=== PATIENT | male | born 1940 | race Caucasian/White ===

== ENCOUNTER → 2017-10-05 15:34 | Outpatient (CLI) | payer OTHER, SELFPAY ==
--- NOTE | 2017-10-05 | DI.US.S_ITS ---
PROCEDURE: US RENAL COMPLETE INDICATIONS: CHRONIC KIDNEY DISEASE TECHNIQUE: Real-time scanning was performed of the kidneys and bladder, with image documentation. COMPARISON: None. FINDINGS: Kidneys: Kidneys are normal in size. Right kidney measures 9.8 cm long; left kidney measures 10.2 cm long. Right renal cortical thickness is 1.9 cm; left renal cortical thickness is 1 point cm. Renal cortical echotexture is normal. No hydronephrosis or nephrolithiasis. No suspicious solid mass lesions. Bladder: Pre-void bladder volume is 443 mL. Post-void residual is 2 mL. Pre-void images demonstrate no intraluminal masses or stones. On pre-void images, bilateral ureteral jets are noted with color Doppler interrogation. (Of note, ureteral jets may not be detectable in up to 25% of cases due to insufficient differences in specific gravity between ureteral and bladder urine). Miscellaneous: No free pelvic fluid. IMPRESSION: Sonographically normal appearance of the kidneys. Dictated by: Christian LEVIN Interpreted: Rishi Singletary MD on 10/05/2017 at 16:43 Approved by: Rishi Singletary M.D. on 10/05/2017 at 16:48
== END ==
PROVIDERS: Family Provider Student in an Organized Health Care Education/Training Program; Visit Provider Student in an Organized Health Care Education/Training Program
DX: N18.9 Chronic kidney disease, unspecified (principal)
CPT/HCPCS: 76770

== ENCOUNTER → 2018-11-18 13:41 | Outpatient (CLI) | payer OTHER, SELFPAY ==
--- NOTE | 2018-11-18 | DI.US.S_ITS ---
PROCEDURE: US RENAL COMPLETE INDICATIONS: [id number] RENAL FAILURE TECHNIQUE: Real-time scanning was performed of the kidneys and bladder, with image documentation. COMPARISON: [facility], , US RENAL COMPLETE, 10/05/2017, 16:05. FINDINGS: Kidneys: Kidneys are normal in size. Right kidney measures 9.5 cm long; left kidney measures 10.7 cm long. Right renal cortical thickness is 1.2 cm; left renal cortical thickness is 1.5 cm. Renal cortical echotexture is normal. No hydronephrosis or nephrolithiasis. No suspicious solid mass lesions. Bladder: Pre-void bladder volume is 437 mL. Post-void residual is 23 mL. Pre-void images demonstrate no intraluminal masses or stones. On pre-void images, both ureteral jets are noted with color Doppler interrogation. (Of note, ureteral jets may not be detectable in up to 25% of cases due to insufficient differences in specific gravity between ureteral and bladder urine). Miscellaneous: No free pelvic fluid. IMPRESSION: No ultrasound findings to explain renal failure. Dictated by: Chuck Mancilla M.D. on 11/18/2018 at 15:47 Approved by: Chuck Mancilla M.D. on 11/18/2018 at 15:48
== END ==
PROVIDERS: Family Provider Student in an Organized Health Care Education/Training Program; PCP Student in an Organized Health Care Education/Training Program; Visit Provider Student in an Organized Health Care Education/Training Program
DX: N17.9 Acute kidney failure, unspecified (principal); N18.9 Chronic kidney disease, unspecified
CPT/HCPCS: 76770

== ENCOUNTER → 2019-09-06 11:24 | Outpatient (CLI) | payer MEDICARE, SELFPAY ==
--- NOTE | 2019-09-06 | DI.RAD.S_ITS ---
PROCEDURE: XR LUMBAR SPINE 2-3V INDICATIONS: Dorsalgia, unspecified TECHNIQUE: 3 views of the lumbar spine were acquired. COMPARISON: None. FINDINGS: Bones: 5 [id number] vertebrae are present. There is mildly dextroscoliotic bony alignment, centered at the thoracolumbar junction. No vertebral body compression fractures. No suspicious bony lesions. 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 Soft tissues: Overlying bowel gas pattern is normal. No suspicious soft tissue calcifications. IMPRESSION: Degenerative disc disease present without acute trauma superimposed, but is overall moderately severe and likely associated with both spinal and foraminal stenosis. Dictated by: Rishi Singletary M.D. on 09/06/2019 at 11:54 Approved by: Rishi Singletary M.D. on 09/06/2019 at 11:55
== END ==
PROVIDERS: Family Provider Student in an Organized Health Care Education/Training Program; PCP Student in an Organized Health Care Education/Training Program; Referring Provider Student in an Organized Health Care Education/Training Program; Visit Provider Student in an Organized Health Care Education/Training Program
DX: M54.9 Dorsalgia, unspecified (principal); M51.37 Other intervertebral disc degeneration, lumbosacral region; M47.817 Spondylosis without myelopathy or radiculopathy, lumbosacral region; M48.07 Spinal stenosis, lumbosacral region
CPT/HCPCS: 72100

== ENCOUNTER 2019-09-22 13:58 | Emergency (ER) | payer MEDICARE, SELFPAY ==
[2019-09-22 13:58] VITALS: BP 179/81; PULSE 58; RESP 12; TEMP 36.8; O2SAT 100; BMI 25.1
[2019-09-22 14:33] VITALS: BP 150/75; PULSE 53; RESP 17; O2SAT 100
--- NOTE | 2019-09-22 14:39 | DI.RAD.S_ITS ---
PROCEDURE: XR CHEST 1V INDICATIONS: chest pain TECHNIQUE: One view of the chest was acquired. COMPARISON: None. FINDINGS: Surgical changes and devices: None. Lungs and pleura: Lungs are abnormal with a mild degree of alveolar infiltration right lower lung. No pleural effusions or pneumothorax. Mediastinum: Mediastinal contours appear normal. Heart size is normal. Bones and chest wall: No suspicious bony lesions. Overlying soft tissues appear unremarkable. IMPRESSION: Mild right lower lung probable pneumonia, without effusion or central mass lesion seen. Dictated by: Rishi Singletary M.D. on 09/22/2019 at 15:16 Approved by: Rishi Singletary M.D. on 09/22/2019 at 15:17
--- NOTE | 2019-09-22 14:40 | ED_ITS ---
HPI - Chest Pain General Chief Complaint: Chest Pain Stated Complaint: Pain in his left side of chest Time Seen by Provider: 09/22/19 14:39 Source: patient Mode of arrival: Ambulatory History of Present Illness HPI narrative: cc: Chest pain HPI: Patient is a 78-year-old male who presented to the emergency department with and aching chest pain in his left chest and a sharp pain down his left arm. The pain has started at 10:00 a.m. this morning. It has been constant up until a little while ago when it resolved. However when he was up moving around the pain recurred. He has taken 1 aspirin. He had similar pain in the past and was told that it was due to stomach pain from GERD by a network internship in [place]. The patient states that this was over 10 years ago. The patient has not been seen by a network internship since then. The patient has not been symptomatic up until now. The pain in his left arm a sharp and stabbing in hurts to squeeze is upper arm and it hurts when the blood pressure cuff is squeezing checking his blood pressure. He denies any fall or injury. He denies any neck pain jaw pain back pain. He has had indigestion and heartburn. He has a hernia in his epigastrium. He denies a history of peptic ulcer disease. The patient states that his pain and discomfort is 6 to 7/10 in intensity. He denies a history of pancreatitis diabetes mellitus hypertension, stroke, congestive heart failure, myocardial infarction, COPD, and asthma. He does not smoke cigarettes he does occasionally drink alcohol but does not use any marijuana. He denies any fall or injury. The patient states that he has not done anything for the last month because he has chronic low back pain. Related Data Previous Rx's Medication Instructions Recorded azithromycin [Zithromax] 250 mg PO DAILY 4 Days tab 09/22/19 pantoprazole [Protonix] 40 mg PO DAILY #20 tab 09/22/19 Allergies Allergy/AdvReac Type Severity Reaction Status Date / Time Penicillins [PENICILLINS] Allergy Unknown Unverified 09/22/19 14:14 Review of Systems Review of Systems Narrative: REVIEW OF SYSTEMS: CONSTITUTIONAL: The patient denies any fever chills or sweats. NEUROLOGICAL: He denies any headache numbness tingling paresthesias anesthesia is or paresis. EENT: He has had no loss of vision but has chronic nasal drainage and runny nose with sometimes difficulty in swallowing. CARDIO-PULMONARY: He has had the chest pain as described. He has had inter mittent palpitations and racing of his heart without dizziness. He has had mild shortness of breath but no cough. HEMOTOLOGICAL: He has had no bleeding abnormalities or bruising. GASTROINTESTINAL: He has had indigestion and heartburn with nausea but no vomiting diarrhea melena hematochezia. GENITAL URINARY: He has had no urinary symptoms. MUSCULOSKELETAL/ RHEUMATOLOGICAL: He complains of chronic low back pain. Patient History Social History Smoking Status: Never smoker Smoking Status: Never smoker Substance Use Type: does not use Exam Narrative Exam Narrative: PHYSICAL EXAM: CONSTITUTIONAL: Awake, Alert, Oriented, Coherent, Cooperative in NAD. Does not appear toxic or ill. HEAD: AT/NC EENT: PERRL, FROM of eyes, no discharge, no nystagmus MOUTH:Oral mucosa is moist and pink, posterior pharynx is without erythema or exudate. He is wearing a mask. NECK: Supple, no obvious JVD, Trachea is midline without stridor, no palpable LN. SPINE: Palpationof the cervical, Thoracic, Lumbar or Sacral spine reveals no gross deformity or tenderness. No CVA tenderness. THORAX: No deformity, retractions, chest wall tenderness. LUNGS: Clear, symmetrical breath sounds without respiratory distress. HEART: Normal heart tones, regular rhythm and rate without murmur. ABDOMEN: Soft, mildly tender in the epigastrium with a palpable ridge that the patient states is his hernia which almost feels like the edge of the liver but is soft and non palpable rate below the costal margin. LYMPHATIC: no palpable spleen. EXTREMITIES: No edema, deformity, tenderness or cyanosis. The patient has full range of motion of his left arm and shoulder. However squeezing the left upper arm causes pain and discomfort as does the blood pressure cuff. There is no bruising there is no mass noted. The patient has good pulses and capillary refill as well as sensation and motor function of the arm. SKIN: No rash, bruising, petechiae or purpura. NEURO: Awake, alert, oriented, conversive, cranial nerves II-XII are symmetrical , moves all 4 extremities and is ambulatory. Initial Vital Signs Initial Vital Signs: Vital Signs Temperature 98.2 F 09/22/19 13:58 Pulse Rate 58 L 09/22/19 13:58 Respiratory Rate 12 09/22/19 13:58 Blood Pressure 179/81 H 09/22/19 13:58 Pulse Oximetry 100 09/22/19 13:58 Course Course Course Narrative: 1520: The radiologist's read the patient's chest x-ray as a right lower lobe pneumonia. His EKG reveals no acute diagnostic ST segment changes in appears to be normal. His initial troponin was 0.012. A 2 hour repeat EKG and troponin will be ordered on the patient. 1651: The patient's repeat EKG reveals a sinus bradycardia with a ventricular rate of 50 first-degree AV block with a AL interval of 226 milliseconds QRS is 92 milliseconds duration QTC is normal at 415 she has left axis deviation. The patient has no acute diagnostic ST or T-wave changes T-waves are inverted in V1 and appears to be upright in III. This is the patient's 2nd EKG 2 hours after his initial EKG. The patient's repeat troponin remains pending at this time. 1724: The patient will be administered Zithromax 500 mg IV and he will be admitted observation status to Dr. Collins on telemetry observation status. The patient will need a cardiac evaluation. The patient has been informed of this. 1752: The patient was admitted to Dr. Collins. Before the patient was admitted to Dr. Collins he was informed that he would be admitted to the hospital for cardiac stress test to evaluate his chest pain and determined that it is not caused by his heart. The patient decided that he did not want to be admitted to the hospital at this time or have a cardiac stress test. He understands that if his pain is cardiac in nature he can have a cardiac arrhythmia and suddenly . He was informed that if he develops worsening chest pain, shortness of breath, dizziness, passing out, weakness and fatigue, he needs to proceed to the nearest emergency department to be further evaluated. He will be placed on Zithromax for his right middle lobe pneumonia. And pantoprazole for his indigestion and heartburn. Orders Ordered: Discontinued Medications Azithromycin (Zithromax) 500 mg PO NOW ONE Stop: 09/22/19 18:00 Last Admin: 09/22/19 18:08 Dose: 500 mg Documented by: DEBORAH Sodium Chloride (Normal Saline 0.9%) 1,000 mls @ 1,000 mls/hr IV BOLUS ONE Stop: 09/22/19 16:20 Last Infusion: 09/22/19 17:08 Dose: 0 mls/hr Documented by: Admin: 09/22/19 15:30 Dose: 1,000 mls/hr Documented by: ARIANNE Azithromycin 500 mg/ Dextrose 250 mls @ 250 mls/hr IV NOW ONE Stop: 09/22/19 17:19 Last Admin: 09/22/19 17:59 Dose: Not Given Documented by: DEBORAH Morphine Sulfate (Morphine) 4 mg IV NOW ONE Stop: 09/22/19 15:18 Ondansetron HCl (Zofran) 4 mg IV NOW ONE Stop: 09/22/19 15:18 Sucralfate (Carafate) 1 gm PO Q6HR CHRISTINA Last Admin: 09/22/19 17:02 Dose: 1 gm Documented by: ARIANNE Vital Signs Vital signs: Vital Signs - 8 hr 09/22/19 13:58 09/22/19 14:33 09/22/19 16:28 Temperature 98.2 F Pulse Rate 58 L 53 L 53 L Respiratory Rate 12 17 24 Blood Pressure 179/81 H Blood Pressure [Right Arm] 150/75 H 170/74 H Pulse Oximetry 100 100 100 MDM - Chest Pain Medical Records Data Attestation: I reviewed the patient's medical records. Lab Data Attestation: I reviewed the patient's lab results. Result diagrams: 09/22/19 14:05 09/22/19 14:05 Labs: Lab Results 09/22/19 09/22/19 09/22/19 Range/Units 14:05 14:05 14:05 WBC 4.8 (4.5-11.0) X10^3/uL RBC 4.36 L (4.5-5.9) X10^6/uL Hgb 15.0 (13.5-17.5) g/dL Hct 42.4 (41-53) % MCV 97.1 (80-100) fL MCH 34.3 H (26-34) PG MCHC 35.3 (30-36) % RDW 12.7 (11.6-14.8) % Plt Count 188 (150-400) X10^3/uL Neut % (Auto) 45.5 L (50-75) % Lymph % (Auto) 39.8 (25-40) % [place] % (Auto) 10.9 (3-14) % Eos % (Auto) 2.5 (2-4) % Baso % (Auto) 1.3 (0-2) % Neut # (Auto) 2200 (6685-2691) /uL Lymph # (Auto) 1900 (2993-2866) /uL [place] # (Auto) 500 (0-900) /uL Eos # (Auto) 100 (0-450) /uL Baso # (Auto) 100 (0-100) /uL PT 12.2 (10.1-12.7) SECONDS INR 1.1 (0.9-1.3) APTT 33 (26.4-36.2) SECONDS Sodium 139 (137-145) mmol/L Potassium 4.0 (3.4-5.1) mmol/L Chloride 104 (98-107) mmol/L Carbon Dioxide 26 (22-32) mmol/L BUN 17 (9-20) mg/dL Creatinine 1.45 H (0.66-1.25) mg/dL Estimated GFR 47.3 L (>60) mL/min BUN/Creatinine Ratio 11.7 (6-22) Glucose 96 (80-110) mg/dL Calcium 9.6 (8.4-10.2) mg/dL Total Bilirubin 0.5 (0.2-1.3) mg/dL AST 41 (17-59) IU/L ALT 22 (<50) IU/L Alkaline Phosphatase 58 (38-126) U/L Total Creatine Kinase 90 (55-170) U/L CK-MB (CK-2) TNP CK-MB (CK-2) Rel Index TNP Troponin I < 0.012 (0.01-0.034) ng/mL Total Protein 7.5 (6.3-8.2) g/dL Albumin 4.5 (3.5-5.0) g/dL Globulin 3.0 (1.7-4.1) g/dL Albumin/Globulin Ratio 1.5 (1.0-2.8) Lipase 168 (23-300) U/L Procalcitonin (<0.5) ng/mL 09/22/19 09/22/19 09/22/19 Range/Units 14:05 14:05 16:40 WBC (4.5-11.0) X10^3/uL RBC (4.5-5.9) X10^6/uL Hgb (13.5-17.5) g/dL Hct (41-53) % MCV (80-100) fL MCH (26-34) PG MCHC (30-36) % RDW (11.6-14.8) % Plt Count (150-400) X10^3/uL Neut % (Auto) (50-75) % Lymph % (Auto) (25-40) % [place] % (Auto) (3-14) % Eos % (Auto) (2-4) % Baso % (Auto) (0-2) % Neut # (Auto) (5285-9091) /uL Lymph # (Auto) (9668-6257) /uL [place] # (Auto) (0-900) /uL Eos # (Auto) (0-450) /uL Baso # (Auto) (0-100) /uL PT (10.1-12.7) SECONDS INR (0.9-1.3) APTT (26.4-36.2) SECONDS Sodium (137-145) mmol/L Potassium (3.4-5.1) mmol/L Chloride (98-107) mmol/L Carbon Dioxide (22-32) mmol/L BUN (9-20) mg/dL Creatinine (0.66-1.25) mg/dL Estimated GFR (>60) mL/min BUN/Creatinine Ratio (6-22) Glucose (80-110) mg/dL Calcium (8.4-10.2) mg/dL Total Bilirubin (0.2-1.3) mg/dL AST (17-59) IU/L ALT (<50) IU/L Alkaline Phosphatase (38-126) U/L Total Creatine Kinase (55-170) U/L CK-MB (CK-2) CK-MB (CK-2) Rel Index Troponin I < 0.012 < 0.012 (0.01-0.034) ng/mL Total Protein (6.3-8.2) g/dL Albumin (3.5-5.0) g/dL Globulin (1.7-4.1) g/dL Albumin/Globulin Ratio (1.0-2.8) Lipase (23-300) U/L Procalcitonin < 0.05 (<0.5) ng/mL ECG Data Attestation: I personally reviewed and interpreted this ECG as follows: Interpretation: The patient's EKG obtained on September 21 at 14:0 6:59 a.m. reveals a normal sinus rhythm with a ventricular rate of 61. Intervals are normal. QTC is normal at 424 milliseconds axis is normal. The patient has an inverted T- wave in V1. The T-waves otherwise are upright in appear to be normal. The patient has nonspecific nondiagnostic ST and T-wave changes that do not represent any ischemia or injury pattern. Discharge Plan Departure Patient Disposition: Home Clinical Impression: Atypical chest pain, Community acquired pneumonia of right middle lobe of lung Gastroesophageal reflux disease Qualifiers: Esophagitis presence: esophagitis presence not specified Qualified Code(s): K21.9 - Gastro-esophageal reflux disease without esophagitis Discharge Date/Time: 09/22/19 18:33 Instructions: DI for Acute Coronary Syndrome, DI for Angina, DI for Gastroesophageal Reflux Disease (GERD), DI for Atypical Chest Pain, DI for Atypical Pneumonia Activity Restrictions/Additional Instructions: 1. You need to follow-up with your primary care physician and scheduled for or referred to a network internship to have a cardiac stress test to evaluate your chest pain. 2. Your chest x-ray reveals that you have a small right middle lobe pneumonia. Zithromax has been prescribed for this. 3. You have a history of GERD and esophagus ill spasm. Pantoprazole has been prescribed for this. Take it as prescribed. 4. If you develop racing of your heart, palpitations, worsening chest pain, neck and jaw pain with back pain, weakness and fatigue, passing out, you need to proceed to the nearest emergency department for re-evaluation. 5. Take 81 mg of aspirin daily. Prescriptions: New azithromycin [Zithromax] 250 mg tablet 250 mg PO DAILY 4 Days RF: 0 pantoprazole [Protonix] 40 mg tablet,delayed release (DR/EC) 40 mg PO DAILY Qty: 20 RF: 0 Referrals: Yesenia Christine PA-C [Primary Care Provider] -
--- NOTE | 2019-09-22 14:42 | PC.NURSE ---
Patient reports improvement of pain at rest. Was 5/10 now 2/10
[2019-09-22 14:45] LABS: Add Manual Diff / Slide Review NO; Basophils Absolute Auto 100 /uL (0-100); Basophils Percent Auto 1.3 % (0-2); Eosinophils Absolute Auto 100 /uL (0-450); Eosinophils Percent Auto 2.5 % (2-4); Hematocrit 42.4 % (41-53); Lymphocytes Absolute Auto 1900 /uL (1100-4500); Lymphocytes Percent Auto 39.8 % (25-40); Mean Corpuscular HGB Conc 35.3 % (30-36); Mean Corpuscular Hemoglobin 34.3 PG (26-34); Mean Corpuscular Volume 97.1 fL (80-100); Monocytes Absolute Auto 500 /uL (0-900); Monocytes Percent Auto 10.9 % (3-14); Neutrophils Absolute Auto 2200 /uL (1500-7000); Neutrophils Percent Auto 45.5 % (50-75); Platelet Count 188 X10^3/uL (150-400); Red Blood Cell Count 4.36 X10^6/uL (4.5-5.9); Red Cell Distribution Width 12.7 % (11.6-14.8); White Blood Cell Count 4.8 X10^3/uL (4.5-11.0)
[2019-09-22 14:48] LABS: INR 1.1 (0.9-1.3); Prothrombin Time 12.2 SECONDS (10.1-12.7)
[2019-09-22 14:50] LABS: PTT Partial Thromboplastin Tim 33 SECONDS (26.4-36.2)
[2019-09-22 14:55] LABS: Alanine Aminotransferase 22 IU/L (<50); Albumin 4.5 g/dL (3.5-5.0); Albumin Globulin Ratio 1.5 (1.0-2.8); Alkaline Phosphatase 58 U/L (38-126); Aspartate Aminotransferase 41 IU/L (17-59); BUN Creatinine Ratio 11.7 (6-22); Bilirubin Total 0.5 mg/dL (0.2-1.3); Blood Urea Nitrogen 17 mg/dL (9-20); Calcium 9.6 mg/dL (8.4-10.2); Carbon Dioxide 26 mmol/L (22-32); Chloride 104 mmol/L (98-107); Creatine Kinase 90 U/L (55-170); Estimated Glomerular Filt Rate 47.3 mL/min (>60); Glucose 96 mg/dL (80-110); HEMOLYSIS < 15 (0-50); Lipase 168 U/L (23-300); Sodium 139 mmol/L (137-145); Total Protein 7.5 g/dL (6.3-8.2)
[2019-09-22 15:07] LABS: Troponin I < 0.012 ng/mL (0.01-0.034)
[2019-09-22] MEDS: SODIUM CHLORIDE 0.9% 1,000 ML 1000 ML IV (15:30)
[2019-09-22 16:00] LABS: Troponin I < 0.012 ng/mL (0.01-0.034)
[2019-09-22 16:28] VITALS: BP 170/74; PULSE 53; RESP 24; O2SAT 100
[2019-09-22 16:52] LABS: Procalcitonin < 0.05 ng/mL (<0.5)
[2019-09-22] MEDS: SUCRALFATE 1 GM/10 ML ORAL SUSP PO (17:02)
[2019-09-22 17:11] LABS: Troponin I < 0.012 ng/mL (0.01-0.034)
[2019-09-22] MEDS: AZITHROMYCIN 250 MG TABLET 500 MG PO (18:08)
[2019-09-22 18:16] VITALS: BP 152/72; PULSE 57; RESP 14; TEMP 36.5; O2SAT 100
== END 2019-09-22 18:33 | disposition home or self-care (01) ==
PROVIDERS: Emergency Provider Emergency Medicine; Family Provider Student in an Organized Health Care Education/Training Program; PCP Student in an Organized Health Care Education/Training Program
DX: R07.89 Other chest pain (principal); J18.9 Pneumonia, unspecified organism; R00.1 Bradycardia, unspecified; K21.9 Gastro-esophageal reflux disease without esophagitis
CPT/HCPCS: 36415; 71045; 80053; 82550; 83690; 84145; 84484; 85025; 85610; 85730; 93005; 93010; 96360; 96361; 99284

== ENCOUNTER → 2019-09-28 07:05 | Outpatient (CLI) | payer MEDICARE, SELFPAY ==
--- NOTE | 2019-09-28 08:30 | P.PCN_ITS ---
Cardiac Stress Test Report Referral & Results Date Patient Seen: 09/28/19 Time Patient Seen: 08:00 Requesting provider: Yesenia Christine Indication: Chest pain Rest ECG: Normal sinus rhythm Procedure Note: Today following both written and verbal informed consent, the patient was exercised according to a standard Harjinder protocol. The patient ex ercised for a total of 6 minutes 23 seconds achieving a maximum heart rate of 136. Patient's maximum systolic blood pressure was 158. This was an estimated 7 METs. Normal hemodynamic response to exercise. [address] deviations in inferior leads that resolved slowly with rest. Patient complained of presenting chest discomfort at the end of exercise. Exercise capacity normal for age (SARAH-5% on active scale), but limited by hip pain. Frequent PVCs/bigeminy at exercise. Impression: Intermediate probability for ischemia. Recommend further evaluation with Cardiolite versus catheterization procedure if clinically appropriate. Craig treadmill score of -3 is correlated with 90% survival rate at 5 years from cardiovascular mortality. Please note: Actual ECG tracings can be found in the PACS system.
== END ==
PROVIDERS: Family Provider Student in an Organized Health Care Education/Training Program; PCP Student in an Organized Health Care Education/Training Program; Referring Provider Student in an Organized Health Care Education/Training Program; Visit Provider Student in an Organized Health Care Education/Training Program
DX: R07.89 Other chest pain (principal)
CPT/HCPCS: 93016; 93017; 93018

== ENCOUNTER → 2019-10-03 10:13 | Outpatient (CLI) | payer MEDICARE, SELFPAY ==
[2019-10-04 15:49] LABS: COVID19 Sendout NOT DETECTED (Not Detect)
== END ==
PROVIDERS: Family Provider Student in an Organized Health Care Education/Training Program; PCP Student in an Organized Health Care Education/Training Program; Visit Provider Registered Nurse
DX: Z01.812 Encounter for preprocedural laboratory examination (principal)
CPT/HCPCS: 87635

== ENCOUNTER → 2019-10-06 07:30 | Outpatient (CLI) | payer MEDICARE, SELFPAY ==
--- NOTE | 2019-10-06 | DI.NM.S_ITS ---
PROCEDURE: NM CHARLY PERF SPECT REST & STR Rest and exercise myocardial perfusion SPECT with gated imaging and ejection fraction RADIOPHARMACEUTICAL: 10.9 mCi Tc-99m sestamibi IV at rest and 24.0 mCi Tc-99m sestamibi IV at peak exercise. A oneday-protocol was performed. INDICATIONS: Abnormal result of other cardiovascular function TECHNIQUE: Radiopharmaceutical was injected at peak stress test, and also at rest. SPECT images were obtained. SPECT myocardial perfusion images were displayed in short axis, horizontal long axis, and vertical long axis views. Gated images were reviewed using NativeX software. COMPARISON: None. CARDIAC STRESS: A standard Harjinder treadmill exercise tolerance test was performed by the patient under the supervision of an attending staff. The patient exercised for 5 minutes and 1 seconds; functional aerobic impairment (SARAH) is +11%. Hemodynamic data: There is normal blood pressure and heart rate response to exercise stress. Patient achieved 84% of maximum predicted heart rate at peak exercise. Symptoms: Patient had 2/10 chest discomfort at peak exercise that quickly resolved during early recovery. EKG: No diagnostic EKG changes of ischemia; occasional PVCs. FINDINGS: Raw data: There is good myocardial labeling by radiotracer. No significant motion artifacts. Gdbu-fe-oekey ratio is 0.26 (normal is less than 0.38 for sestamibi tracer, and less than 0.50 for thallium tracer). Left ventricle function: Gated images demonstrate normal left ventricle wall thickening. No segmental wall motion abnormality. No transient ischemic dilation; TID is 0.90 (normal less than 1.3). The left ventricle resting end-diastolic volume is 122 mL. Left ventricle stress ejection fraction is 68%; normal values are above 45%. Myocardial perfusion: Mildly intense inferior wall fixed defect that resolves with prone imaging suggesting diaphragmatic attenuation artifact. No ischemia or infarction. IMPRESSION: low risk, probably normal treadmill nuclear stress test. Non-diagnostic chest pain during peak exercise. 1) No perfusion evidence of ischemia. 2) Normal left ventricular size, wall motion, and systolic function (EF post stress 68%). 3) No ECG evidence of ischemia. 4) Non-diagnostic chest pain at peak exercise. Patient had 2/10 chest discomfort at peak exercise that resolved quickly during early recovery. 5) Mildly redued exercise tolerance (7.0 METS, SARAH +11%). Target heart rate achieved. Appropriate hemodynamic response to exercise. 6) No prior nuclear stress test available for comparison. Dictated by: Amy Staples MD on 10/06/2019 at 16:56 Approved by: Amy Staples MD on 10/06/2019 at 17:01
== END ==
PROVIDERS: Family Provider Student in an Organized Health Care Education/Training Program; PCP Student in an Organized Health Care Education/Training Program; Referring Provider Student in an Organized Health Care Education/Training Program; Visit Provider Student in an Organized Health Care Education/Training Program
DX: R94.39 Abnormal result of other cardiovascular function study (principal); M62.08 Separation of muscle (nontraumatic), other site; K43.9 Ventral hernia without obstruction or gangrene
CPT/HCPCS: 78452; 93017; 99214; A9502

== ENCOUNTER → 2019-10-14 11:54 | Outpatient (CLI) | payer MEDICARE, SELFPAY ==
--- NOTE | 2019-10-14 12:50 | DI.CT.S_ITS ---
PROCEDURE: CT ABDOMEN PELVIS WO CON INDICATIONS: pre operative planning, evaluate abdominal wall for hernia TECHNIQUE: Noncontrast 5 mm thick sections acquired from the diaphragms to the symphysis. 5 mm coronal and sagittal reformats were then performed. For radiation dose reduction, the following was used: automated exposure control, adjustment of mA and/or kV according to patient size. COMPARISON: None. FINDINGS: Image quality: Excellent. ABDOMEN: Lung bases: There is a right lateral lung base nodule measuring 8 mm diameter. There is a 3 mm subpleural nodule within the left posterolateral lung base. Heart size is normal. Solid organs: Liver is normal in size. The there is a lateral segment left hepatic lobe cysts measuring 46 mm. Gallbladder demonstrates a calculus within its lumen. Pancreas is normal in contours. Spleen is normal in size. No adrenal nodules. Kidneys are normal in size, without hydronephrosis. Punctate nonobstructing calculi within the bilateral interpolar kidneys posteriorly are present. Peritoneum and bowel: Unenhanced bowel loops demonstrate normal wall thickness and caliber. No free fluid or air. Appendix not seen. No evidence of appendicitis. Nodes and vessels: No retroperitoneal or mesenteric adenopathy by size criteria. Aorta and inferior vena cava are normal in caliber. Miscellaneous: No ventral hernias. PELVIS: Genitourinary: Bladder wall thickness is normal. Miscellaneous: No inguinal hernias or adenopathy. Bones: No suspicious bony lesions. No vertebral body compression fractures. IMPRESSION: 1. Bibasilar pulmonary nodules. Follow up is recommended as below. 2. Cholelithiasis without evidence of cholecystitis. 3. Nonobstructing bilateral nephrolithiasis. 4. Appendix not seen. No evidence of appendicitis. 5. No evidence of hernia. Fleischner Society criteria for SOLID lung nodule followup. Nodule size (mm)Low-risk patientHigh-risk patient<6 (single or multiple)No routine followup.Optional CT at 12 months. 6-8 (single or multiple)CT at 6-12 months, then optional CT at 18-24 mo.CT at 6-12 months, then CT at 18-24 months. >8 (single)CT, PET-CT, or biopsy at 3 months. Same as for low-risk pts. >8 (multiple)CT at 3-6 months, then optional CT at 18-24 mo.CT at 3-6 months, then CT at 18-24 months. Recommendations do not apply to lung cancer screening, patients with immunosuppression, or patients with known primary cancer. Dictated by: Jona Esteves M.D. on 10/14/2019 at 16:03 Approved by: Jona Esteves M.D. on 10/14/2019 at 16:06
== END ==
PROVIDERS: Family Provider Student in an Organized Health Care Education/Training Program; PCP Student in an Organized Health Care Education/Training Program; Referring Provider Surgery; Visit Provider Surgery
DX: Z01.818 Encounter for other preprocedural examination (principal); M62.08 Separation of muscle (nontraumatic), other site; R91.8 Other nonspecific abnormal finding of lung field; N20.0 Calculus of kidney; K76.89 Other specified diseases of liver; K80.20 Calculus of gallbladder without cholecystitis without obstruction
CPT/HCPCS: 74176

== ENCOUNTER → 2019-11-18 15:58 | Outpatient (CLI) | payer MEDICARE, SELFPAY ==
[2019-11-18 17:11] LABS: Hematocrit 39.5 % (41-53); Hemoglobin 13.7 g/dL (13.5-17.5)
[2019-11-18 18:02] LABS: BUN Creatinine Ratio 11.1 (6-22); Blood Urea Nitrogen 21 mg/dL (9-20); Calcium 9.8 mg/dL (8.4-10.2); Carbon Dioxide 27 mmol/L (22-32); Chloride 105 mmol/L (98-107); Estimated Glomerular Filt Rate 34.8 mL/min (>60); Glucose 81 mg/dL (80-110); HEMOLYSIS < 15 (0-50); Potassium 4.8 mmol/L (3.4-5.1); Sodium 138 mmol/L (137-145)
[2019-11-18 19:40] LABS: Protein (Total) Urine Random 10 mg/dL (0-12)
[2019-11-18 20:02] LABS: Creatinine Urine Random 465.4 mg/dL; Protein Creatinine Ratio Urine 0.02 GRAM/24H
[2019-11-19 06:36] LABS: Parathyroid Hormone Int 52 pg/mL (15-65)
== END ==
PROVIDERS: Family Provider Student in an Organized Health Care Education/Training Program; PCP Student in an Organized Health Care Education/Training Program; Referring Provider Student in an Organized Health Care Education/Training Program; Visit Provider Student in an Organized Health Care Education/Training Program
DX: N05.9 Unspecified nephritic syndrome with unspecified morphologic changes (principal); D64.9 Anemia, unspecified; N25.81 Secondary hyperparathyroidism of renal origin; R80.9 Proteinuria, unspecified
CPT/HCPCS: 36415; 80048; 82570; 83970; 84156; 85014; 85018

== ENCOUNTER → 2019-11-24 14:40 | Outpatient (CLI) | payer MEDICARE, SELFPAY ==
--- NOTE | 2019-11-24 | DI.US.S_ITS ---
PROCEDURE: US RENAL COMPLETE INDICATIONS: ACUTE KIDNEY FAILURE TECHNIQUE: Real-time scanning was performed of the kidneys and bladder, with image documentation. COMPARISON: [facility], , US RENAL COMPLETE, 11/18/2018, 13:54. FINDINGS: Kidneys: Kidneys are normal in size. Right kidney measures 10.4 cm long; left kidney measures 10.3 cm long. Right renal cortical thickness is 1.2 cm; left renal cortical thickness is 1.4 cm. Renal cortical echotexture is normal. Bilateral nephrolithiasis measuring up to 3 mm on the right and up to 4 mm on the left. There are possible right parapelvic cysts, versus mild right hydronephrosis. 1.8 cm right renal cyst which is not well sonographically evaluated.. Bladder: Pre-void bladder volume is 246 mL. Post-void residual is 40 mL. Pre-void images demonstrate no intraluminal masses or stones. On pre-void images, both of the ureteral jets are noted with color Doppler interrogation. (Of note, ureteral jets may not be detectable in up to 25% of cases due to insufficient differences in specific gravity between ureteral and bladder urine). Miscellaneous: No free pelvic fluid. IMPRESSION: Bilateral sub 5 mm nephrolithiasis as detailed above, with possible mild right hydronephrosis versus parapelvic cysts. 40 mL postvoid residual. Dictated by: Vincent Smith M.D. on 11/24/2019 at 15:56 Approved by: Vincent Smith M.D. on 11/24/2019 at 16:01
== END ==
PROVIDERS: Family Provider Student in an Organized Health Care Education/Training Program; PCP Student in an Organized Health Care Education/Training Program; Referring Provider Student in an Organized Health Care Education/Training Program; Visit Provider Student in an Organized Health Care Education/Training Program
DX: N17.9 Acute kidney failure, unspecified (principal); N20.0 Calculus of kidney
CPT/HCPCS: 76770

== ENCOUNTER → 2019-12-19 15:15 | Outpatient (CLI) | payer MEDICARE, SELFPAY ==
[2019-12-19 16:25] LABS: Blood Urea Nitrogen 19 mg/dL (9-20); Calcium 9.3 mg/dL (8.4-10.2); Carbon Dioxide 23 mmol/L (22-32); Chloride 105 mmol/L (98-107); Estimated Glomerular Filt Rate 38.5 mL/min (>60); Glucose 119 mg/dL (80-110); HEMOLYSIS < 15 (0-50); Potassium 4.7 mmol/L (3.4-5.1); Sodium 136 mmol/L (137-145)
== END ==
PROVIDERS: Family Provider Student in an Organized Health Care Education/Training Program; PCP Student in an Organized Health Care Education/Training Program; Referring Provider Student in an Organized Health Care Education/Training Program; Visit Provider Student in an Organized Health Care Education/Training Program
DX: N05.9 Unspecified nephritic syndrome with unspecified morphologic changes (principal)
CPT/HCPCS: 36415; 80048

== ENCOUNTER → 2019-12-27 14:56 | Outpatient (ROUT) | payer MEDICARE, SELFPAY ==
[2019-12-27 15:11] LABS: Hematocrit 43.6 % (41-53); Hemoglobin 14.7 g/dL (13.5-17.5); Mean Corpuscular HGB Conc 33.6 % (30-36); Mean Corpuscular Hemoglobin 33.1 PG (26-34); Mean Corpuscular Volume 98.5 fL (80-100); Platelet Count 184 X10^3/uL (150-400); Red Blood Cell Count 4.43 X10^6/uL (4.5-5.9); Red Cell Distribution Width 13.1 % (11.6-14.8); White Blood Cell Count 3.9 X10^3/uL (4.5-11.0)
[2019-12-27 15:16] LABS: Alanine Aminotransferase 22 IU/L (<50); Albumin 4.3 g/dL (3.5-5.0); Albumin Globulin Ratio 1.5 (1.0-2.8); Alkaline Phosphatase 54 U/L (38-126); Aspartate Aminotransferase 40 IU/L (17-59); Bilirubin Total 0.9 mg/dL (0.2-1.3); Blood Urea Nitrogen 17 mg/dL (9-20); Calcium 9.7 mg/dL (8.4-10.2); Carbon Dioxide 26 mmol/L (22-32); Chloride 106 mmol/L (98-107); Cholesterol 201 mg/dL (140-199); Estimated Glomerular Filt Rate 43.7 mL/min (>60); Globulin 2.9 g/dL (1.7-4.1); Glucose 96 mg/dL (80-110); HDL Cholesterol 41 mg/dL (40-60); HEMOLYSIS < 15 (0-50); LDL Cholesterol Calculated 132 mg/dL (<100); Sodium 140 mmol/L (137-145); Total Protein 7.2 g/dL (6.3-8.2); Triglycerides 138 mg/dL (35-150)
== END ==
PROVIDERS: Family Provider Student in an Organized Health Care Education/Training Program; PCP Student in an Organized Health Care Education/Training Program; Visit Provider Student in an Organized Health Care Education/Training Program
DX: E78.5 Hyperlipidemia, unspecified (principal)
CPT/HCPCS: 80053; 80061; 85027

== ENCOUNTER → 2020-03-28 13:11 | Outpatient (CLI) | payer MEDICARE, SELFPAY ==
[2020-03-28 13:57] LABS: Hematocrit 44.6 % (41-53); Hemoglobin 14.9 g/dL (13.5-17.5)
[2020-03-28 14:07] LABS: BUN Creatinine Ratio 13.8 (6-22); Blood Urea Nitrogen 22 mg/dL (9-20); Calcium 9.5 mg/dL (8.4-10.2); Carbon Dioxide 29 mmol/L (22-32); Chloride 104 mmol/L (98-107); Estimated Glomerular Filt Rate 42.4 mL/min (>60); Glucose 92 mg/dL (80-110); HEMOLYSIS < 15 (0-50); Potassium 4.5 mmol/L (3.4-5.1); Sodium 138 mmol/L (137-145)
[2020-03-28 15:50] LABS: Protein (Total) Urine Random 13 mg/dL (0-12)
[2020-03-29 07:09] LABS: Parathyroid Hormone Int 33 pg/mL (15-65)
== END ==
PROVIDERS: Family Provider Student in an Organized Health Care Education/Training Program; PCP Student in an Organized Health Care Education/Training Program; Referring Provider Student in an Organized Health Care Education/Training Program; Visit Provider Student in an Organized Health Care Education/Training Program
DX: R50.9 Fever, unspecified (principal); D64.9 Anemia, unspecified; N25.81 Secondary hyperparathyroidism of renal origin; N05.9 Unspecified nephritic syndrome with unspecified morphologic changes
CPT/HCPCS: 36415; 80048; 82570; 83970; 84156; 85014; 85018

== ENCOUNTER → 2020-07-12 12:07 | Outpatient (CLI) | payer OTHER, SELFPAY ==
--- NOTE | 2020-07-12 12:12 | DI.RAD.S_ITS ---
PROCEDURE: XR KUB INDICATIONS: kidney stones TECHNIQUE: One view of the abdomen acquired. COMPARISON: [facility], US, US RENAL COMPLETE, 11/24/2019, 14:53. [facility], CT, CT ABDOMEN PELVIS WO CON, 10/14/2019, 12:15. FINDINGS: Surgical changes and devices: None. Bowel: Bowel gas pattern is normal. Soft tissues: No suspicious abdominal calcifications. Visualized solid organ contours appear normal in size. Bones: No suspicious bony lesions. Scoliosis. Suspect old inferior rib fractures. IMPRESSION: 1. Small renal stones seen on the comparison CT are not well seen on this radiograph. 2. A large amount of stool in colon. Dictated by: Chuck Mancilla M.D. on 07/12/2020 at 17:15 Approved by: Chuck Mancilla M.D. on 07/12/2020 at 17:16
[2020-07-12 13:47] LABS: Prostate Specific Antigen 1.46 ng/mL (0.10-4.00)
== END ==
PROVIDERS: Family Provider Student in an Organized Health Care Education/Training Program; PCP Student in an Organized Health Care Education/Training Program; Referring Provider Specialist; Visit Provider Specialist
DX: N20.0 Calculus of kidney (principal); N40.0 Benign prostatic hyperplasia without lower urinary tract symptoms
CPT/HCPCS: 36415; 74018; 84153

== ENCOUNTER → 2020-08-22 11:00 | Outpatient (CLI) | payer OTHER, SELFPAY ==
[2020-08-22 12:07] LABS: Hematocrit 41.4 % (41-53)
[2020-08-22 12:30] LABS: Protein (Total) Urine Random 12 mg/dL (0-12); Protein Creatinine Ratio Urine 0.13 GRAM/24H
[2020-08-22 12:32] LABS: BUN Creatinine Ratio 12.5 (6-22); Blood Urea Nitrogen 20 mg/dL (9-20); Calcium 9.5 mg/dL (8.4-10.2); Carbon Dioxide 26 mmol/L (22-32); Chloride 102 mmol/L (98-107); Estimated Glomerular Filt Rate 42.1 mL/min (>60); Glucose 96 mg/dL (80-110); HEMOLYSIS < 15 (0-50); Potassium 4.8 mmol/L (3.4-5.1); Sodium 135 mmol/L (137-145)
[2020-08-24 06:36] LABS: Parathyroid Hormone Int 56 pg/mL (15-65)
== END ==
PROVIDERS: Family Provider Student in an Organized Health Care Education/Training Program; PCP Student in an Organized Health Care Education/Training Program; Referring Provider Student in an Organized Health Care Education/Training Program; Visit Provider Student in an Organized Health Care Education/Training Program
DX: N05.9 Unspecified nephritic syndrome with unspecified morphologic changes (principal); D64.9 Anemia, unspecified; N25.81 Secondary hyperparathyroidism of renal origin; R80.9 Proteinuria, unspecified
CPT/HCPCS: 36415; 80048; 82570; 83970; 84156; 85014; 85018

== ENCOUNTER → 2021-03-12 11:30 | Outpatient (CLI) | payer OTHER, SELFPAY ==
[2021-03-12 12:33] LABS: Hematocrit 43.2 % (41-53)
[2021-03-12 13:06] LABS: BUN Creatinine Ratio 11.2 (6-22); Blood Urea Nitrogen 18 mg/dL (9-20); Calcium 9.4 mg/dL (8.4-10.2); Carbon Dioxide 27 mmol/L (22-32); Chloride 105 mmol/L (98-107); Estimated Glomerular Filt Rate 41.7 mL/min (>60); Glucose 112 mg/dL (80-110); HEMOLYSIS < 15 (0-50); Potassium 4.5 mmol/L (3.4-5.1); Sodium 139 mmol/L (137-145)
[2021-03-12 16:43] LABS: Creatinine Urine Random 31.1 mg/dL; Protein (Total) Urine Random 14 mg/dL (0-12); Protein Creatinine Ratio Urine 0.45 GRAM/24H
[2021-03-13 07:11] LABS: Parathyroid Hormone Int 59 pg/mL (15-65)
== END ==
PROVIDERS: Family Provider Student in an Organized Health Care Education/Training Program; PCP Student in an Organized Health Care Education/Training Program; Referring Provider Student in an Organized Health Care Education/Training Program; Visit Provider Student in an Organized Health Care Education/Training Program
DX: N05.9 Unspecified nephritic syndrome with unspecified morphologic changes (principal); D64.9 Anemia, unspecified; N25.81 Secondary hyperparathyroidism of renal origin; R80.9 Proteinuria, unspecified
CPT/HCPCS: 36415; 80048; 82570; 83970; 84156; 85014; 85018

== ENCOUNTER → 2021-08-08 14:26 | Outpatient (CLI) | payer OTHER, SELFPAY ==
[2021-08-08 15:44] LABS: Hematocrit 42.6 % (41-53); Hemoglobin 14.3 g/dL (13.5-17.5)
[2021-08-08 15:57] LABS: BUN Creatinine Ratio 12.4 (6-22); Blood Urea Nitrogen 20 mg/dL (9-20); Calcium 8.8 mg/dL (8.4-10.2); Carbon Dioxide 26 mmol/L (22-32); Chloride 103 mmol/L (98-107); Estimated Glomerular Filt Rate 44 mL/min (>60); Glucose 164 mg/dL (80-110); HEMOLYSIS < 15 (0-50); Potassium 4.5 mmol/L (3.4-5.1); Sodium 138 mmol/L (137-145)
[2021-08-08 19:44] LABS: Creatinine Urine Random 33.7 mg/dL; Protein (Total) Urine Random 12 mg/dL (0-12); Protein Creatinine Ratio Urine 0.35 GRAM/24H
[2021-08-09 09:09] LABS: Parathyroid Hormone Int 70 pg/mL (15-65)
== END ==
PROVIDERS: Family Provider Student in an Organized Health Care Education/Training Program; PCP Student in an Organized Health Care Education/Training Program; Referring Provider Student in an Organized Health Care Education/Training Program; Visit Provider Student in an Organized Health Care Education/Training Program
DX: N05.9 Unspecified nephritic syndrome with unspecified morphologic changes (principal); D64.9 Anemia, unspecified; N25.81 Secondary hyperparathyroidism of renal origin; R80.9 Proteinuria, unspecified
CPT/HCPCS: 36415; 80048; 82570; 83970; 84156; 85014; 85018

== ENCOUNTER 2021-09-23 12:28 | Emergency (ER) | payer OTHER, SELFPAY ==
[2021-09-23 12:59] VITALS: PULSE 59; RESP 22; TEMP 36.8; O2SAT 98
--- NOTE | 2021-09-23 13:02 | DI.RAD.S_ITS ---
PROCEDURE: XR CHEST 2V INDICATIONS: cough, COVID+ TECHNIQUE: 2 views of the chest were acquired. COMPARISON: [facility], CR, XR CHEST 1V, 09/22/2019, 14:48. FINDINGS: Surgical changes and devices: None. Lungs and pleura: Low lung volumes and mild generalized interstitial prominence can be seen. Mediastinum: Mediastinal contours are normal. Heart size is normal. Bones and chest wall: No suspicious bony abnormalities. Age-appropriate bony degenerative changes are seen. Soft tissues appear unremarkable. IMPRESSION: Low lung volumes and mild interstitial prominence can be seen. Please consider artifact, pulmonary edema, and potentially infiltrates column the given clinical history of COVID pneumonia. Dictated by: Arnaldo Ellison M.D. on 09/23/2021 at 12:34 Approved by: Arnaldo Ellison M.D. on 09/23/2021 at 12:35
--- NOTE | 2021-09-23 16:14 | ED_ITS ---
HPI - Fever <Lindsey Toledo PA-C - Last Filed: 09/23/21 18:17> General Chief Complaint: Fever Stated Complaint: COVID+/Sore Throat/Headache Time Seen by Provider: 09/23/21 14:39 Source: patient Mode of arrival: Ambulatory History of Present Illness HPI Narrative: 80-year-old male with stage 3 chronic kidney disease, Parkinson's disease, hypercholesterolemia presents to the ED with 3 days of fever, cough. Patient e ndorses fever, cough, headache, nasal congestion. Patient denies chest pain, shortness of breath, nausea, vomiting, diarrhea, lightheadedness, dizziness, syncope. Patient tested positive for COVID-19 at home. Takes atorvastatin daily. Patient is interested in Paxlovid therapy for COVID-19. Related Data Home Medications Medication Instructions Recorded Confirmed ascorbate calcium (vitamin C) 500 500 mg PO DAILY 10/06/19 07/19/20 mg tablet cholecalciferol (vitamin D3) 10 10 mcg PO DAILY 10/06/19 07/19/20 mcg (400 unit) capsule vitamin E 200 unit capsule 200 unit PO DAILY 10/06/19 07/19/20 B-complex with vitamin C (Super B 1 tab PO DAILY 03/14/20 07/19/20 Complex-Vitamin C) aspirin 81 mg tablet,delayed 81 mg PO DAILY 03/14/20 07/19/20 release (Adult Aspirin Regimen) cranberry concentrate-ascorbic cap PO 03/14/20 07/19/20 acid 4,200 mg-20 mg capsule multivitamin 1 tab PO DAILY 03/14/20 07/19/20 omega-3 fatty acids 1,000 mg 1,000 mg PO DAILY 03/14/20 07/19/20 capsule prevagen PO 03/14/20 07/19/20 turmeric root extract 1,053 mg 1,076 mg PO DAILY 03/14/20 07/19/20 tablet vitamin E 1,150 unit/1.25 mL oral 1,150 unit PO DAILY 03/14/20 07/19/20 liquid carbidopa 10 mg-levodopa 100 mg 1 tab PO TID 07/19/20 07/19/20 tablet Previous Rx's Medication Instructions Recorded pantoprazole 40 mg tablet,delayed 40 mg PO DAILY #20 tab 09/22/19 release (Protonix) azithromycin 250 mg tablet See Rx Instructions .ROUTE 09/23/21 .COMPLEX #6 tab benzonatate 200 mg capsule 200 mg PO TID PRN #30 cap 09/23/21 nirmatrelvir 150 mg-ritonavir 100 See Rx Instructions .ROUTE 09/23/21 mg tablet (EUA) (Paxlovid) .COMPLEX #20 tab Allergies Allergy/AdvReac Type Severity Reaction Status Date / Time Penicillins [PENICILLINS] Allergy Unknown Verified 07/19/20 09:55 Review of Systems <Lindsey Toledo PA-C - Last Filed: 09/23/21 18:17> Review of Systems ROS Unobtainable: All systems reviewed & are unremarkable except as noted in HPI and below Constitutional Constitutional: Denies chills, Denies fatigue, Reports fever(s), Denies frequent falls, Reports headache(s), Denies lethargy and Denies weakness Eyes Eyes: Denies change in vision, Denies eye discharge, Denies irritation and Denies loss of vision ENT Ears, Nose, Mouth, and Throat: Denies change in voice, Denies dizziness, Reports headache(s), Reports nasal congestion, Denies neck pain, Denies sore throat and Denies throat swelling Cardiovascular Cardiovascular: Denies chest pain, Denies irregular heart rhythm, Denies lightheadedness, Denies palpitations, Denies dyspnea, Denies dyspnea on exertion and Denies orthopnea Respiratory Respiratory: Reports cough, Denies dyspnea, Denies dyspnea on exertion and Denies wheezing Gastrointestinal Gastrointestinal: Denies abdominal pain, Denies change in bowel habits, Denies diarrhea, Denies nausea and Denies vomiting Genitourinary Genitourinary: Denies hematuria, Denies flank pain, Denies urinary incontinence and Denies urinary urgency Musculoskeletal Musculoskeletal: Denies back pain, Denies muscle weakness, Denies neck pain, Denies numbness and Denies tingling Integumentary/Breasts Skin/Breast: Denies pruritus, Denies erythema, Denies rash and Denies wounds Neurologic Neurologic: Denies behavioral changes, Denies confusion, Denies dizziness, Denies frequent falls, Reports headache(s), Denies loss of vision, Denies numbness, Denies tingling and Denies weakness Psychiatric Psychiatric: Denies anxiety, Denies behavioral changes, Denies confusion, Denies depression, Denies homicidal ideation and Denies suicidal ideation Endocrine Endocrine: Denies fatigue, Denies flushing and Denies palpitations Hematologic/Lymphatic Hematologic/Lymphatic: Denies easy bruising Allergic/Immunologic Allergic/Immunologic: Denies urticaria, Denies throat swelling and Denies wheezing Patient History <Lindsey Toledo PA-C - Last Filed: 09/23/21 18:17> Medical History BPH loc w/o ur obs/LUTS Kidney stones Male circumcision Nephrolithiasis Renal disease Skin cancer Surgical History Hx of appendectomy Previous back surgery Vasectomy status Family History Father Diabetes mellitus Social History marital status: Smoking Status: Never smoker alcohol intake: current caffeine: Yes Smoking Status: Never smoker Substance Use Type: does not use Exam <Lindsey Toledo PA-C - Last Filed: 09/23/21 18:17> Narrative Exam Narrative: Const General:?cooperative, healthy appearing and comfortable [facility] Head:?normal to inspection Ears:?hearing grossly normal bilaterally Nose:?external nose normal Face and sinus:?normal facial exam and sinuses nontender Mouth:?oral mucosae normal Throat:?posterior oropharynx normal Eyes General:?appearance normal, both eyes and all related structures Neck Neck:?normal visual inspection and no lymphadenopathy noted Resp Effort & Inspection:?normal respiratory effort Auscultation:?clear to auscultation bilaterally Cardio Rate:?regular rate Rhythm:?regular rhythm Neuro General:?patient alert, patient awake and patient oriented x3 Initial Vital Signs Initial Vital Signs: Vital Signs Temperature 98.2 F 09/23/21 12:59 Pulse Rate 59 L 09/23/21 12:59 Respiratory Rate 09/23/21 12:59 Pulse Oximetry 98 09/23/21 12:59 <Keila Dsouza DO - Last Filed: 09/25/21 07:43> Initial Vital Signs Initial Vital Signs: Vital Signs Temperature 98.2 F 09/23/21 12:59 Pulse Rate 59 L 09/23/21 12:59 Respiratory Rate 09/23/21 12:59 Pulse Oximetry 98 09/23/21 12:59 Course <Lindsey Toledo PA-C - Last Filed: 09/23/21 18:17> Orders Ordered: ED Orders 09/23/21 13:02 Chest [XR chest 2V] Stat 09/23/21 16:18 CBC Auto Diff [Complete Blood Count AUTO DIFF] Stat CMP [Comprehensive Metabolic Panel] Stat 09/23/21 16:30 COVID19 -Nasal RAPID/Pre-Proc Stat Vital Signs Vital signs: Vital Signs - 8 hr 09/23/21 12:59 09/23/21 17:28 Temperature 98.2 F Pulse Rate 59 L 72 Respiratory Rate 22 18 Blood Pressure 120/56 L Pulse Oximetry 98 99 <Keila Dsouza DO - Last Filed: 09/25/21 07:43> Orders Ordered: ED Orders 09/23/21 13:02 Chest [XR chest 2V] Stat 09/23/21 16:18 CBC Auto Diff [Complete Blood Count AUTO DIFF] Stat CMP [Comprehensive Metabolic Panel] Stat 09/23/21 16:30 COVID19 -Nasal RAPID/Pre-Proc Stat Vital Signs Vital signs: Vital Signs - 8 hr 09/23/21 12:59 09/23/21 17:28 Temperature 98.2 F Pulse Rate 59 L 72 Respiratory Rate 22 18 Blood Pressure 120/56 L Pulse Oximetry 98 99 MDM - Fever <Lindsey Toledo PA-C - Last Filed: 09/23/21 18:17> Lab Data Lab results narrative: GFR 40, creatinine 1.71. Labs otherwise within normal limits. Result diagrams: 09/23/21 16:18 09/23/21 16:18 Labs: Lab Results 09/23/21 09/23/21 09/23/21 Range/Units 16:18 16:18 16:30 WBC 7.0 (4.5-11.0) X10^3/uL RBC 4.49 L (4.5-5.9) X10^6/uL Hgb 15.1 (13.5-17.5) g/dL Hct 43.5 (41-53) % MCV 96.8 (80-100) fL MCH 33.5 (26-34) PG MCHC 34.6 (30-36) % RDW 13.2 (11.6-14.8) % Plt Count 153 (150-400) X10^3/uL Neut % (Auto) 67.8 (50-75) % Lymph % (Auto) 19.1 L (25-40) % Faulkner % (Auto) 12.4 (3-14) % Eos % (Auto) 0.1 L (2-4) % Baso % (Auto) 0.6 (0-2) % Neut # (Auto) 4700 (5089-3747) /uL Lymph # (Auto) 1300 (4926-8342) /uL Faulkner # (Auto) 900 (0-900) /uL Eos # (Auto) 0 (0-450) /uL Baso # (Auto) 0 (0-100) /uL Sodium 139 (137-145) mmol/L Potassium 4.2 (3.4-5.1) mmol/L Chloride 105 (98-107) mmol/L Carbon Dioxide 26 (22-32) mmol/L BUN 17 (9-20) mg/dL Creatinine 1.71 H (0.66-1.25) mg/dL Estimated GFR 40 L (>60) mL/min BUN/Creatinine Ratio 9.9 (6-22) Glucose 109 (80-110) mg/dL Calcium 9.0 (8.4-10.2) mg/dL Total Bilirubin 0.5 (0.2-1.3) mg/dL AST 41 (17-59) IU/L ALT 35 (<50) IU/L Alkaline Phosphatase 60 (38-126) U/L Total Protein 8.1 (6.3-8.2) g/dL Albumin 4.7 (3.5-5.0) g/dL Globulin 3.4 (1.7-4.1) g/dL Albumin/Globulin Ratio 1.4 (1.0-2.8) SARS-CoV-2 (PCR) Positive H (Negative) Imaging Data Chest x-ray: Radiologist's Impression: PROCEDURE:? XR CHEST 2V ? INDICATIONS:? cough, COVID+ ? TECHNIQUE:? 2 views of the chest were acquired.? ? COMPARISON:? [facility], CR, XR CHEST 1V, 09/22/2019, 14:48. ? FINDINGS:? ? Surgical changes and devices:? None.? ? Lungs and pleura:? Low lung volumes and mild generalized interstitial prominence can be seen. ? Mediastinum:? Mediastinal contours are normal.? Heart size is normal.? ? Bones and chest wall:? No suspicious bony abnormalities.? Age-appropriate bony degenerative changes are seen. ? Soft tissues appear unremarkable.? ? ? IMPRESSION:? Low lung volumes and mild interstitial prominence can be seen. ? Please consider artifact, pulmonary edema, and potentially infiltrates column the given clinical history of COVID pneumonia.? ? Dictated by: Arnaldo Ellison M.D. on 09/23/2021 at 12:34 ? ? Approved by: Arnaldo Ellison M.D. on 09/23/2021 at 12:35 ? MDM Narrative Medical decision making narrative: 80-year-old male with stage 3 chronic kidney disease, Parkinson's disease, hypercholesterolemia presents to the ED with 3 days of fever, cough. Will obtain COVID-19 test to confirm diagnosis. Consulted pharmacist for intera ctions with atorvastatin. Per the pharmacist, patient to stop atorvastatin when taking Paxlovid. Will obtain kidney function to see if patient is eligible. Will treat for pneumonia, per CXR read. Patient's GFR is 40, creatinine 1.71. Patient is eligible for Paxlovid at a lower dose. Patient advised to stop atorvastatin for the duration of the Paxlovid. Azithromycin prescribed for pneumonia. ED return precautions discussed with patient. Patient verbalized understanding. <Keila Dsouza, DO - Last Filed: 09/25/21 07:43> Lab Data Labs: Lab Results 09/23/21 09/23/21 09/23/21 Range/Units 16:18 16:18 16:30 WBC 7.0 (4.5-11.0) X10^3/uL RBC 4.49 L (4.5-5.9) X10^6/uL Hgb 15.1 (13.5-17.5) g/dL Hct 43.5 (41-53) % MCV 96.8 (80-100) fL MCH 33.5 (26-34) PG MCHC 34.6 (30-36) % RDW 13.2 (11.6-14.8) % Plt Count 153 (150-400) X10^3/uL Neut % (Auto) 67.8 (50-75) % Lymph % (Auto) 19.1 L (25-40) % Faulkner % (Auto) 12.4 (3-14) % Eos % (Auto) 0.1 L (2-4) % Baso % (Auto) 0.6 (0-2) % Neut # (Auto) 4700 (6366-8343) /uL Lymph # (Auto) 1300 (4537-9007) /uL Faulkner # (Auto) 900 (0-900) /uL Eos # (Auto) 0 (0-450) /uL Baso # (Auto) 0 (0-100) /uL Sodium 139 (137-145) mmol/L Potassium 4.2 (3.4-5.1) mmol/L Chloride 105 (98-107) mmol/L Carbon Dioxide 26 (22-32) mmol/L BUN 17 (9-20) mg/dL Creatinine 1.71 H (0.66-1.25) mg/dL Estimated GFR 40 L (>60) mL/min BUN/Creatinine Ratio 9.9 (6-22) Glucose 109 (80-110) mg/dL Calcium 9.0 (8.4-10.2) mg/dL Total Bilirubin 0.5 (0.2-1.3) mg/dL AST 41 (17-59) IU/L ALT 35 (<50) IU/L Alkaline Phosphatase 60 (38-126) U/L Total Protein 8.1 (6.3-8.2) g/dL Albumin 4.7 (3.5-5.0) g/dL Globulin 3.4 (1.7-4.1) g/dL Albumin/Globulin Ratio 1.4 (1.0-2.8) SARS-CoV-2 (PCR) Positive H (Negative) Discharge Plan Departure Patient Disposition: Home Clinical Impression: COVID-19 Instructions: DI for COVID-19 (Suspected or Confirmed ) Activity Restrictions/Additional Instructions: You were evaluated in the ED today for COVID-19. You are being prescribed Paxlovid, which is an antiviral therapy that can prevent progression of COVID-19 to severe illness. You take atorvastatin which you should stop when you are taking the Paxlovid. You also have a lower than normal kidney function due to your chronic kidney disease. You will therefore take a lesser does of the Paxlovid. You are also being prescribed a cough medication, Tessalon Perles. Return to the ED if you experience any chest pain, shortness of breath. Prescriptions: New Paxlovid (EUA) 150-100 mg tablet See Rx Instructions .ROUTE .COMPLEX Qty: 20 0RF Rx Instructions: orally per package directions. Take Nirmatrelvir 150 mg and ritonavir 100 mg twice daily for 5 days. GFR: 40, Creatinine 1.71 (baseline); Day 3 of covid-19 symptoms. Stop atorvastatin when taking Paxlovid. benzonatate 200 mg capsule 200 mg PO TID PRN (Reason: cough) Qty: 30 0RF azithromycin 250 mg tablet See Rx Instructions .ROUTE .COMPLEX Qty: 6 0RF Rx Instructions: For 250 mg dose pack: take 500 mg today (day 1), then 250 mg for 4 days (days 2-5) No Action ascorbate calcium (vitamin C) 500 mg tablet 500 mg PO DAILY 0RF cholecalciferol (vitamin D3) 10 mcg (400 unit) capsule 10 mcg PO DAILY 0RF vitamin E 200 unit capsule 200 unit PO DAILY 0RF pantoprazole [Protonix] 40 mg tablet,delayed release (DR/EC) 40 mg PO DAILY Qty: 20 0RF carbidopa-levodopa 10-100 mg tablet 1 tab PO TID 0RF aspirin [Adult Aspirin Regimen] 81 mg tablet,delayed release (DR/EC) 81 mg PO DAILY 0RF cranberry conc-ascorbic acid 4,200-20 mg capsule PO 0RF multivitamin Tablet 1 tab PO DAILY 0RF omega-3 fatty acids 1,000 mg capsule 1,000 mg PO DAILY 0RF B-complex with vitamin C [Super B Complex-Vitamin C] Tablet 1 tab PO DAILY 0RF vitamin E 1,150 unit/1.25 mL liquid 1,150 unit PO DAILY 0RF turmeric root extract 1,053 mg tablet 1,076 mg PO DAILY 0RF prevagen PO 0RF Referrals: Yesenia Christine PA-C [Primary Care Provider] - <Keila Dsouza DO - Last Filed: 09/25/21 07:43> Cosign ED Attending Boydature Attestation: I was immediately available in the department for consultation. Documentation has been reviewed. Case was discussed.
[2021-09-23 16:36] LABS: Add Manual Diff / Slide Review NO; Basophils Absolute Auto 0 /uL (0-100); Basophils Percent Auto 0.6 % (0-2); Eosinophils Absolute Auto 0 /uL (0-450); Eosinophils Percent Auto 0.1 % (2-4); Hematocrit 43.5 % (41-53); Hemoglobin 15.1 g/dL (13.5-17.5); Lymphocytes Absolute Auto 1300 /uL (1100-4500); Lymphocytes Percent Auto 19.1 % (25-40); Mean Corpuscular HGB Conc 34.6 % (30-36); Mean Corpuscular Hemoglobin 33.5 PG (26-34); Mean Corpuscular Volume 96.8 fL (80-100); Monocytes Absolute Auto 900 /uL (0-900); Monocytes Percent Auto 12.4 % (3-14); Neutrophils Absolute Auto 4700 /uL (1500-7000); Neutrophils Percent Auto 67.8 % (50-75); Platelet Count 153 X10^3/uL (150-400); Red Blood Cell Count 4.49 X10^6/uL (4.5-5.9); Red Cell Distribution Width 13.2 % (11.6-14.8)
[2021-09-23 16:44] LABS: Alanine Aminotransferase 35 IU/L (<50); Albumin 4.7 g/dL (3.5-5.0); Albumin Globulin Ratio 1.4 (1.0-2.8); Alkaline Phosphatase 60 U/L (38-126); Aspartate Aminotransferase 41 IU/L (17-59); BUN Creatinine Ratio 9.9 (6-22); Bilirubin Total 0.5 mg/dL (0.2-1.3); Blood Urea Nitrogen 17 mg/dL (9-20); Carbon Dioxide 26 mmol/L (22-32); Chloride 105 mmol/L (98-107); Estimated Glomerular Filt Rate 40 mL/min (>60); Globulin 3.4 g/dL (1.7-4.1); Glucose 109 mg/dL (80-110); HEMOLYSIS < 15 (0-50); Potassium 4.2 mmol/L (3.4-5.1); Sodium 139 mmol/L (137-145); Total Protein 8.1 g/dL (6.3-8.2)
[2021-09-23 16:52] LABS: COVID19 -Nasal RAPID POSITIVE (Negative)
[2021-09-23 17:28] VITALS: BP 120/56; PULSE 72; RESP 18; O2SAT 99
== END 2021-09-23 17:29 | disposition home or self-care (01) ==
PROVIDERS: Emergency Provider Student in an Organized Health Care Education/Training Program; Family Provider Student in an Organized Health Care Education/Training Program; PCP Student in an Organized Health Care Education/Training Program
DX: U07.1 COVID-19 (principal); G20 Parkinson's disease
CPT/HCPCS: 36415; 71046; 80053; 85025; 87635; 99283; C9803

== ENCOUNTER → 2021-12-31 10:10 | Outpatient (CLI) | payer OTHER, SELFPAY ==
[2021-12-31 11:12] LABS: Hematocrit 41.7 % (41-53)
[2021-12-31 11:24] LABS: BUN Creatinine Ratio 11.6 (6-22); Blood Urea Nitrogen 17 mg/dL (9-20); Calcium 8.5 mg/dL (8.4-10.2); Carbon Dioxide 28 mmol/L (22-32); Chloride 105 mmol/L (98-107); Estimated Glomerular Filt Rate 48 mL/min (>60); Glucose 102 mg/dL (80-110); HEMOLYSIS < 15 (0-50); Potassium 4.4 mmol/L (3.4-5.1); Sodium 137 mmol/L (137-145)
[2021-12-31 11:27] LABS: Creatinine Urine Random 39.6 mg/dL; Protein (Total) Urine Random 14 mg/dL (0-12); Protein Creatinine Ratio Urine 0.35 GRAM/24H
[2022-01-01 07:12] LABS: Parathyroid Hormone Int 62 pg/mL (15-65)
== END ==
PROVIDERS: Family Provider Student in an Organized Health Care Education/Training Program; PCP Student in an Organized Health Care Education/Training Program; Referring Provider Student in an Organized Health Care Education/Training Program; Visit Provider Student in an Organized Health Care Education/Training Program
DX: N05.9 Unspecified nephritic syndrome with unspecified morphologic changes (principal); D64.9 Anemia, unspecified; N25.81 Secondary hyperparathyroidism of renal origin; R80.9 Proteinuria, unspecified
CPT/HCPCS: 36415; 80048; 82570; 83970; 84156; 85014; 85018

== ENCOUNTER → 2022-05-22 12:34 | Outpatient (CLI) | payer OTHER, SELFPAY ==
[2022-05-22 13:15] LABS: Hematocrit 42.7 % (41-53); Hemoglobin 14.3 g/dL (13.5-17.5)
[2022-05-22 13:39] LABS: BUN Creatinine Ratio 11.8 (6-22); Blood Urea Nitrogen 18 mg/dL (9-20); Calcium 9.3 mg/dL (8.4-10.2); Carbon Dioxide 26 mmol/L (22-32); Chloride 103 mmol/L (98-107); Estimated Glomerular Filt Rate 46 mL/min (>60); Glucose 102 mg/dL (80-110); HEMOLYSIS < 15 (0-50); Potassium 4.6 mmol/L (3.4-5.1); Sodium 139 mmol/L (137-145)
[2022-05-22 15:29] LABS: Protein (Total) Urine Random 18 mg/dL (0-12)
[2022-05-23 10:49] LABS: Parathyroid Hormone Int 41 pg/mL (15-65)
== END ==
PROVIDERS: Family Provider Student in an Organized Health Care Education/Training Program; PCP Student in an Organized Health Care Education/Training Program; Referring Provider Student in an Organized Health Care Education/Training Program; Visit Provider Student in an Organized Health Care Education/Training Program
DX: N05.9 Unspecified nephritic syndrome with unspecified morphologic changes (principal); D64.9 Anemia, unspecified; R80.9 Proteinuria, unspecified; N25.81 Secondary hyperparathyroidism of renal origin
CPT/HCPCS: 36415; 80048; 82570; 83970; 84156; 85014; 85018

== ENCOUNTER → 2022-05-29 11:32 | Outpatient (CLI) | payer OTHER, SELFPAY ==
--- NOTE | 2022-05-29 | DI.MRI.S_ITS ---
PROCEDURE: MR HEAD/BRAIN WO CON INDICATIONS: Parkinson's disease TECHNIQUE: Non-contrast axial T1 spin echo, axial T2 fast spin echo, sagittal and axial FLAIR, coronal T2 fast spin echo, axial gradient echo, axial diffusion and ADC through the brain. COMPARISON: None. FINDINGS: Image quality: Excellent. CSF spaces: Ventricles appear symmetric in size and shape. Basal cisterns are patent. No extra-axial fluid collections. Brain: No intracranial mass effects. There is cerebral volume loss for age. There are periventricular and deep white matter chronic small vessel ischemic changes. Brainstem appears normal. Diffusion-weighted images show no acute ischemic insults. No chronic ischemic insults. Normal intravascular flow voids are present. Focal hemosiderin deposition can be seen involving the right frontal lobe, as on series 10, image 18. Symmetric calcification can be seen involving the basal ganglia, which is considered to be normal for age. Skull and face: Calvarial bone marrow is normal in signal. Orbits are normal. Note is made of bilateral lens replacements. Sinuses: Sinuses and mastoids are clear. 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 Moderate rightward nasal septal deviation is seen. IMPRESSION: No imaging explanation is found for this patient's presenting symptoms. Focal hemosiderin deposition seen involving the right frontal lobe. 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 Additional findings: Chronic small vessel ischemic change Brain parenchymal volume loss Bilateral lens replacements Left-sided nazia bullosa Moderate rightward nasal septal deviation Dictated by: Arnaldo Ellison M.D. on 05/29/2022 at 12:16 Approved by: Arnaldo Ellison M.D. on 05/29/2022 at 12:19
== END ==
PROVIDERS: Family Provider Student in an Organized Health Care Education/Training Program; PCP Student in an Organized Health Care Education/Training Program; Referring Provider Student in an Organized Health Care Education/Training Program; Visit Provider Student in an Organized Health Care Education/Training Program
DX: G20 Parkinson's disease (principal); J34.2 Deviated nasal septum; J34.3 Hypertrophy of nasal turbinates; Z96.1 Presence of intraocular lens
CPT/HCPCS: 70551

== ENCOUNTER 2022-06-17 18:37 | Emergency (ER) | payer OTHER, SELFPAY ==
[2022-06-17 18:40] VITALS: BP 133/91; PULSE 72; RESP 15; TEMP 36.9; O2SAT 99; BMI 25.7
--- NOTE | 2022-06-17 19:19 | DI.RAD.S_ITS ---
PROCEDURE: XR TIBIA FIBULA LT 2V INDICATIONS: dog bite eval for foreign body TECHNIQUE: 2 views of the tibia and fibula were acquired. COMPARISON: None. FINDINGS: Bones: No fractures or dislocations. No suspicious bony lesions. Soft tissues: No suspicious soft tissue calcifications or masses. Soft tissue injury is noted over the lateral calf IMPRESSION: No osseous injury. No radiopaque foreign body. Soft tissue injury is noted. Dictated by: Vincent Lobato M.D. on 06/17/2022 at 20:37 Approved by: Vincent Lobato M.D. on 06/17/2022 at 20:39
--- NOTE | 2022-06-17 19:19 | ED_ITS ---
HPI - Animal Bite General Chief Complaint: Animal Bite Stated Complaint: Two dog attacked L leg knee to javier Time Seen by Provider: 06/17/22 19:12 Source: patient Mode of arrival: Ambulatory Limitations: no limitations History of Present Illness HPI narrative: Patient is a 81-year-old male here for evaluation of injuries that he sustained when he stated that he was out for a walk and a neighbor's dog bit him. He was wearing full length pants at the time however the dog did break the skin on his left leg. He stated that he does need an update of his tetanus shot. Related Data Home Medications Medication Instructions Recorded Confirmed ascorbate calcium (vitamin C) 500 500 mg PO DAILY 10/06/19 07/19/20 mg tablet cholecalciferol (vitamin D3) 10 10 mcg PO DAILY 10/06/19 07/19/20 mcg (400 unit) capsule vitamin E 200 unit capsule 200 unit PO DAILY 10/06/19 07/19/20 B-complex with vitamin C (Super B 1 tab PO DAILY 03/14/20 07/19/20 Complex-Vitamin C tablet) aspirin 81 mg tablet,delayed 81 mg PO DAILY 03/14/20 07/19/20 release (Adult Aspirin Regimen) cranberry concentrate-ascorbic cap PO 03/14/20 07/19/20 acid 4,200 mg-20 mg capsule multivitamin 1 tab PO DAILY 03/14/20 07/19/20 omega-3 fatty acids 1,000 mg 1,000 mg PO DAILY 03/14/20 07/19/20 capsule prevagen PO 03/14/20 07/19/20 turmeric root extract 1,053 mg 1,076 mg PO DAILY 03/14/20 07/19/20 tablet vitamin E 1,150 unit/1.25 mL oral 1,150 unit PO DAILY 03/14/20 07/19/20 liquid carbidopa 10 mg-levodopa 100 mg 1 tab PO TID 07/19/20 07/19/20 tablet Previous Rx's Medication Instructions Recorded pantoprazole 40 mg tablet,delayed 40 mg PO DAILY #20 tabs 09/22/19 release (Protonix) azithromycin 250 mg tablet See Rx Instructions PO .COMPLEX #6 09/23/21 tabs benzonatate 200 mg capsule 200 mg PO TID PRN cough #30 caps 09/23/21 nirmatrelvir 150 mg-ritonavir 100 See Rx Instructions PO .COMPLEX 09/23/21 mg tablets in a dose pack (EUA) #20 tabs (Paxlovid) doxycycline hyclate 100 mg tablet 100 mg PO BID 5 days #10 tabs 06/17/22 Allergies Allergy/AdvReac Type Severity Reaction Status Date / Time Penicillins [PENICILLINS] Allergy Unknown Verified 06/17/22 18:40 Review of Systems Constitutional Constitutional: Reports system reviewed and no additional complaints, except as documented Musculoskeletal Musculoskeletal: Reports system reviewed and no additional complaints, except as documented Integumentary/Breasts Skin/Breast: Reports system reviewed and no additional complaints, except as documented Neurologic Neurologic: Reports system reviewed and no additional complaints, except as documented Patient History Medical History BPH loc w/o ur obs/LUTS Kidney stones Male circumcision Nephrolithiasis Renal disease Skin cancer Surgical History Hx of appendectomy Previous back surgery Vasectomy status Family History Father Diabetes mellitus Social History marital status: Smoking Status: Never smoker alcohol intake: current caffeine: Yes Smoking Status: Never smoker Substance Use Type: does not use Exam Initial Vital Signs Initial Vital Signs: Vital Signs Temperature 98.4 F 06/17/22 18:40 Pulse Rate 72 06/17/22 18:40 Respiratory Rate 15 06/17/22 18:40 Blood Pressure 133/91 H 06/17/22 18:40 Pulse Oximetry 99 06/17/22 18:40 Oxygen Delivery Method 06/17/22 18:40 Const General: cooperative and comfortable Skin Other: Patient does have superficial abrasions and small puncture wounds and small skin tears located on the anterior aspect of the left proximal jansen. Some oozing from the area. Neuro Sensory Exam: no sensory deficits noted Extrem Other: No joint abnormality Course Orders Ordered: Discontinued Medications Bacitracin (Bacitracin Oint 0.9 Gm Pckt) 1 applic TOP NOW ONE Stop: 06/17/22 19:57 Last Admin: 06/17/22 20:06 Dose: 1 applic Documented By: JUSTIN Diphtheria/Tetanus/Acell Pertussis (Tet,Diph,Pertuss(Acell),Vac/Pf 0.5 Ml Syringe) 0.5 ml IM .ONCE ONE Stop: 06/17/22 19:18 Last Admin: 06/17/22 19:25 Dose: 0.5 ml Documented By: JUSTIN Doxycycline Hyclate (Doxycycline Hyclate 100 Mg Tablet) 100 mg PO NOW ONE Stop: 06/17/22 19:57 Last Admin: 06/17/22 20:06 Dose: 100 mg Documented By: JUSTIN Vital Signs Vital signs: Vital Signs - 8 hr 06/17/22 20:51 Pulse Rate 58 L Blood Pressure 164/75 H Pulse Oximetry 99 Oxygen Delivery Method Room Air MDM - Animal Bite Imaging Data Extremity x-ray #1: Radiologist's Impression: No foreign body/fractures noted on tib-fib x-ray [facility] Narrative Medical decision making narrative: No foreign bodies noted. Patient's tetanus was updated. Given the nature of the event this was domesticated animals would recommend holding on rabies prophylaxis. The cuts to his left leg no specific intervention here in the emergency department. There is nothing that would be amenable to suturing. We will cover with antibiotic ointment. Will send home with a prescription for antibiotics. Was given return precautions. He expressed understanding and agreement. Discharge Plan Departure Patient Disposition: Home Clinical Impression: Dog bite Instructions: DI for Animal Bites Activity Restrictions/Additional Instructions: You can continue to put topical antibiotic ointment over the area. You can shower like normal. A prescription for antibiotics was sent to [facility]' per your request. Please pick them up tomorrow and start taking it as directed. Return to the emergency department for any new or worsening symptoms. Prescriptions: New doxycycline hyclate 100 mg tablet 100 mg PO BID 5 Days Qty: 10 0RF No Action ascorbate calcium (vitamin C) 500 mg tablet 500 mg PO DAILY cholecalciferol (vitamin D3) 10 mcg (400 unit) capsule 10 mcg PO DAILY vitamin E 200 unit capsule 200 unit PO DAILY Paxlovid (EUA) 150-100 mg tablet See Rx Instructions .ROUTE .COMPLEX Qty: 20 0RF Rx Instructions: orally per package directions. Take Nirmatrelvir 150 mg and ritonavir 100 mg twice daily for 5 days. GFR: 40, Creatinine 1.71 (baseline); Day 3 of covid-19 symptoms. Stop atorvastatin when taking Paxlovid. benzonatate 200 mg capsule 200 mg PO TID PRN (Reason: cough) Qty: 30 0RF azithromycin 250 mg tablet See Rx Instructions .ROUTE .COMPLEX Qty: 6 0RF Rx Instructions: For 250 mg dose pack: take 500 mg today (day 1), then 250 mg for 4 days (days 2-5) pantoprazole [Protonix] 40 mg tablet,delayed release (DR/EC) 40 mg PO DAILY Qty: 20 0RF carbidopa-levodopa 10-100 mg tablet 1 tab PO TID aspirin [Adult Aspirin Regimen] 81 mg tablet,delayed release (DR/EC) 81 mg PO DAILY cranberry conc-ascorbic acid 4,200-20 mg capsule PO multivitamin Tablet 1 tab PO DAILY omega-3 fatty acids 1,000 mg capsule 1,000 mg PO DAILY B-complex with vitamin C [Super B Complex-Vitamin C] Tablet 1 tab PO DAILY vitamin E 1,150 unit/1.25 mL liquid 1,150 unit PO DAILY turmeric root extract 1,053 mg tablet 1,076 mg PO DAILY prevagen PO Referrals: Yesenia Christine PA-C [Primary Care Provider] - Stand Alone Forms: Patient Portal/API
[2022-06-17] MEDS: TET,DIPH,PERTUSS(ACELL),VAC/PF 0.5 ML SYRINGE IM (19:25)
[2022-06-17] MEDS: DOXYCYCLINE HYCLATE 100 MG TABLET PO (20:06)
[2022-06-17] MEDS: BACITRACIN OINT 0.9 GM PCKT 1 APPLIC TOP (20:06)
--- NOTE | 2022-06-17 20:17 | PC.NURSE ---
Pt has multiple small wounds around side of calf and jansen on left leg. bleeding at this time. Bacitracin placed with telfa wrapped in gauze and coban
[2022-06-17 20:51] VITALS: BP 164/75; PULSE 58; O2SAT 99
== END 2022-06-17 20:52 | disposition home or self-care (01) ==
PROVIDERS: Emergency Provider Emergency Medicine; Family Provider Student in an Organized Health Care Education/Training Program; PCP Student in an Organized Health Care Education/Training Program
DX: S81.852A Open bite, left lower leg, initial encounter (principal); W54.0XXA Bitten by dog, initial encounter; Z79.899 Other long term (current) drug therapy; Z23 Encounter for immunization
CPT/HCPCS: 73590; 90471; 99283; 99284; 90715

== ENCOUNTER 2022-09-25 19:17 | Emergency (ER) | payer OTHER, SELFPAY ==
[2022-09-25] VITALS (9 sets, daily range): BP systolic 160–198; BP diastolic 72–105; PULSE 48–59; RESP 15–32; TEMP 36.6; O2SAT 90–99; BMI 25.7
--- NOTE | 2022-09-25 19:27 | DI.RAD.S_ITS ---
PROCEDURE: XR CHEST 1V INDICATIONS: chest pain TECHNIQUE: One view of the chest was acquired. COMPARISON: [facility], CR, XR CHEST 2V, 09/23/2021, 13:01. FINDINGS: Surgical changes and devices: None. Lungs and pleura: Lungs are clear. No pleural effusions or pneumothorax. Mediastinum: Mediastinal contours appear normal. Heart size is normal. Bones and chest wall: No suspicious bony lesions. Overlying soft tissues appear unremarkable. IMPRESSION: 1. No acute cardiopulmonary disease. Dictated by: Zane Ordoñez M.D. on 09/25/2022 at 20:22 Approved by: Zane Ordoñez M.D. on 09/25/2022 at 20:22
[2022-09-25 19:47] LABS: Eosinophils Absolute Auto 200 /uL (0-450); Hematocrit 41.2 % (41-53); Mean Corpuscular HGB Conc 34.1 % (30-36); Monocytes Absolute Auto 500 /uL (0-900); Neutrophils Absolute Auto 1900 /uL (1500-7000); White Blood Cell Count 4.4 X10^3/uL (4.5-11.0)
[2022-09-25 19:49] LABS: INR 1.1 (0.9-1.3); Prothrombin Time 12.1 SECONDS (10.1-12.7)
[2022-09-25 19:50] LABS: Add Manual Diff / Slide Review NO; Basophils Absolute Auto 100 /uL (0-100); Basophils Percent Auto 2.1 % (0-2); Eosinophils Percent Auto 4.6 % (2-4); Hemoglobin 14.1 g/dL (13.5-17.5); Lymphocytes Absolute Auto 1700 /uL (1100-4500); Lymphocytes Percent Auto 38.3 % (25-40); Mean Corpuscular Hemoglobin 33.3 PG (26-34); Mean Corpuscular Volume 97.8 fL (80-100); Platelet Count 166 X10^3/uL (150-400); Red Blood Cell Count 4.22 X10^6/uL (4.5-5.9); Red Cell Distribution Width 12.9 % (11.6-14.8)
[2022-09-25 19:52] LABS: PTT Partial Thromboplastin Tim 33 SECONDS (26-36)
[2022-09-25 20:00] LABS: Alanine Aminotransferase 31 IU/L (<50); Albumin 4.4 g/dL (3.5-5.0); Albumin Globulin Ratio 1.5 (1.0-2.8); Alkaline Phosphatase 87 U/L (38-126); Aspartate Aminotransferase 38 IU/L (17-59); BUN Creatinine Ratio 11.1 (6-22); Bilirubin Total 0.4 mg/dL (0.2-1.3); Blood Urea Nitrogen 21 mg/dL (9-20); Carbon Dioxide 27 mmol/L (22-32); Chloride 103 mmol/L (98-107); Creatine Kinase 111 U/L (55-170); Estimated Glomerular Filt Rate 36 mL/min (>60); Glucose 103 mg/dL (80-110); HEMOLYSIS < 15 (0-50); Lipase 178 U/L (23-300); Magnesium 2.2 mg/dL (1.6-2.3); Potassium 4.3 mmol/L (3.4-5.1); Sodium 138 mmol/L (137-145); Total Protein 7.4 g/dL (6.3-8.2)
--- NOTE | 2022-09-25 20:10 | ED_ITS ---
HPI - Chest Pain General Chief Complaint: Chest Pain Stated Complaint: Chest pain, Nausea Time Seen by Provider: 09/25/22 20:06 Source: patient Mode of arrival: Ambulatory Limitations: no limitations History of Present Illness HPI narrative: Patient is a 81-year-old male. Has a history of Parkinson's disease. Still able to get around with helped much issue. He is here for evaluation of chest discomfort. He states that he was exercising at the time specifically was jogging. Had chest pain that radiated down his left arm. Was somewhat short of breath. I did better they resolved he states that he is had these symptoms every time that he has exercised past 20 years. He had cardiac catheterization approximately 15 years ago that was unremarkable. He has had a nuclear stress test several years ago that was unremarkable. He does not see a director of managed care on a regular basis. Not 100% sure my today was the day that he came in to be evaluated since the symptoms have been going on for 20 years but he stated that he thought he should come in to be seen. He did take aspirin prior to arrival. Related Data Home Medications Medication Instructions Recorded Confirmed ascorbate calcium (vitamin C) 500 500 mg PO DAILY 10/06/19 07/19/20 mg tablet cholecalciferol (vitamin D3) 10 10 mcg PO DAILY 10/06/19 07/19/20 mcg (400 unit) capsule vitamin E 200 unit capsule 200 unit PO DAILY 10/06/19 07/19/20 B-complex with vitamin C (Super B 1 tab PO DAILY 03/14/20 07/19/20 Complex-Vitamin C tablet) aspirin 81 mg tablet,delayed 81 mg PO DAILY 03/14/20 07/19/20 release (Adult Aspirin Regimen) cranberry concentrate-ascorbic cap PO 03/14/20 07/19/20 acid 4,200 mg-20 mg capsule multivitamin 1 tab PO DAILY 03/14/20 07/19/20 omega-3 fatty acids 1,000 mg 1,000 mg PO DAILY 03/14/20 07/19/20 capsule prevagen PO 03/14/20 07/19/20 turmeric root extract 1,053 mg 1,076 mg PO DAILY 03/14/20 07/19/20 tablet vitamin E 1,150 unit/1.25 mL oral 1,150 unit PO DAILY 11/18/20 03/25/21 liquid carbidopa 10 mg-levodopa 100 mg 1 tab PO TID 07/19/20 07/19/20 tablet Previous Rx's Medication Instructions Recorded pantoprazole 40 mg tablet,delayed 40 mg PO DAILY #20 tabs 09/22/19 release (Protonix) azithromycin 250 mg tablet See Rx Instructions PO .COMPLEX #6 09/23/21 tabs benzonatate 200 mg capsule 200 mg PO TID PRN cough #30 caps 09/23/21 nirmatrelvir 150 mg-ritonavir 100 See Rx Instructions PO .COMPLEX 09/23/21 mg tablets in a dose pack (EUA) #20 tabs (Paxlovid) Allergies Allergy/AdvReac Type Severity Reaction Status Date / Time Penicillins [PENICILLINS] Allergy Unknown Verified 06/17/22 18:40 Review of Systems Constitutional Constitutional: Reports system reviewed and no additional complaints, except as documented Cardiovascular Cardiovascular: Reports system reviewed and no additional complaints, except as documented Respiratory Respiratory: Reports system reviewed and no additional complaints, except as documented Gastrointestinal Gastrointestinal: Reports system reviewed and no additional complaints, except as documented Musculoskeletal Musculoskeletal: Reports system reviewed and no additional complaints, except as documented Integumentary/Breasts Skin/Breast: Reports system reviewed and no additional complaints, except as documented Hematologic/Lymphatic On Anticoagulants: No Patient History Medical History BPH loc w/o ur obs/LUTS Kidney stones Male circumcision Nephrolithiasis Renal disease Skin cancer Surgical History Hx of appendectomy Previous back surgery Vasectomy status Family History Father Diabetes mellitus Social History marital status: Smoking Status: Never smoker alcohol intake: current caffeine: Yes Smoking Status: Never smoker Substance Use Type: does not use Exam Initial Vital Signs Initial Vital Signs: Vital Signs Temperature 97.9 F 09/25/22 19:22 Pulse Rate 59 L 09/25/22 19:22 Respiratory Rate 16 09/25/22 19:22 Blood Pressure 161/72 H 09/25/22 19:22 Pulse Oximetry 99 09/25/22 19:22 Oxygen Delivery Method Room Air 09/25/22 19:22 [facility] Head: normal to inspection and normocephalic Resp Effort & Inspection: normal respiratory effort Auscultation: clear to auscultation bilaterally Cardio Rate: bradycardic Rhythm: regular rhythm GI Inspection: normal to inspection Skin General: no rashes or lesions noted Neuro General: patient alert, patient awake and moves all extremities Extrem General: normal to inspection and capillary refill normal Scores HEART Score Heart Score history: Slightly Suspicious Heart Score EKG: Normal Heart Score Age: > or = 65 years old Heart Score risk factors: 1-2 risk factors Heart Score troponin: < or = to normal limit Heart Score Total: 3 Course Orders Ordered: ED Orders 09/25/22 19:27 XR chest 1V Stat EKG-12 Lead Stat 09/25/22 19:30 Complete Blood Count AUTO DIFF Stat Comprehensive Metabolic Panel Stat Lipase Stat Magnesium Stat PTT Partial Thromboplastin Dusty Stat Prothrombin Time INR Stat Troponin & CK Cardiac Panel Stat 09/25/22 21:30 Troponin & CK Cardiac Panel Stat Discontinued Medications Ondansetron HCl (Ondansetron 4 Mg/2 Ml Inj) 4 mg IV NOW ONE Stop: 09/25/22 20:07 Vital Signs Vital signs: Vital Signs - 8 hr 09/25/22 19:58 09/25/22 19:58 09/25/22 20:00 Pulse Rate 53 L Respiratory Rate 18 Blood Pressure 177/82 H 166/77 H Pulse Oximetry 90 L 09/25/22 20:30 09/25/22 20:30 09/25/22 21:00 Pulse Rate 49 L Respiratory Rate 16 Blood Pressure 163/74 H 169/78 H Pulse Oximetry 09/25/22 21:00 09/25/22 21:30 09/25/22 21:30 Pulse Rate 48 L 48 L Respiratory Rate 15 29 H Blood Pressure 164/77 H Pulse Oximetry 92 99 09/25/22 22:00 09/25/22 22:00 09/25/22 22:30 Pulse Rate 48 L 49 L Respiratory Rate 32 H 22 Blood Pressure 160/77 H Pulse Oximetry 98 99 09/25/22 22:31 09/25/22 22:31 Pulse Rate 51 L Respiratory Rate 21 Blood Pressure 198/105 H Pulse Oximetry 99 MDM - Chest Pain Lab Data Attestation: I reviewed the patient's lab results. 09/25/22 19:30 09/25/22 19:30 Labs: Lab Results 09/25/22 09/25/22 09/25/22 Range/Units 19:30 19:30 19:30 WBC 4.4 L (4.5-11.0) X10^3/uL RBC 4.22 L (4.5-5.9) X10^6/uL Hgb 14.1 (13.5-17.5) g/dL Hct 41.2 (41-53) % MCV 97.8 (80-100) fL MCH 33.3 (26-34) PG MCHC 34.1 (30-36) % RDW 12.9 (11.6-14.8) % Plt Count 166 (150-400) X10^3/uL Neut % (Auto) 43.0 L (50-75) % Lymph % (Auto) 38.3 (25-40) % [place] % (Auto) 12.0 (3-14) % Eos % (Auto) 4.6 H (2-4) % Baso % (Auto) 2.1 H (0-2) % Neut # (Auto) 1900 (0089-6708) /uL Lymph # (Auto) 1700 (6683-0862) /uL [place] # (Auto) 500 (0-900) /uL Eos # (Auto) 200 (0-450) /uL Baso # (Auto) 100 (0-100) /uL PT 12.1 (10.1-12.7) SECONDS INR 1.1 (0.9-1.3) APTT 33 (26-36) SECONDS Sodium 138 (137-145) mmol/L Potassium 4.3 (3.4-5.1) mmol/L Chloride 103 (98-107) mmol/L Carbon Dioxide 27 (22-32) mmol/L BUN 21 H (9-20) mg/dL Creatinine 1.89 H (0.66-1.25) mg/dL Estimated GFR 36 L (>60) mL/min BUN/Creatinine Ratio 11.1 (6-22) Glucose 103 (80-110) mg/dL Calcium 9.0 (8.4-10.2) mg/dL Magnesium 2.2 (1.6-2.3) mg/dL Total Bilirubin 0.4 (0.2-1.3) mg/dL AST 38 (17-59) IU/L ALT 31 (<50) IU/L Alkaline Phosphatase 87 (38-126) U/L Total Creatine Kinase 111 (55-170) U/L CK-MB (CK-2) TNP CK-MB (CK-2) Rel Index TNP Troponin I < 0.012 (0.01-0.034) ng/mL Total Protein 7.4 (6.3-8.2) g/dL Albumin 4.4 (3.5-5.0) g/dL Globulin 3.0 (1.7-4.1) g/dL Albumin/Globulin Ratio 1.5 (1.0-2.8) Lipase 178 (23-300) U/L 09/25/22 Range/Units 21:30 WBC (4.5-11.0) X10^3/uL RBC (4.5-5.9) X10^6/uL Hgb (13.5-17.5) g/dL Hct (41-53) % MCV (80-100) fL MCH (26-34) PG MCHC (30-36) % RDW (11.6-14.8) % Plt Count (150-400) X10^3/uL Neut % (Auto) (50-75) % Lymph % (Auto) (25-40) % [place] % (Auto) (3-14) % Eos % (Auto) (2-4) % Baso % (Auto) (0-2) % Neut # (Auto) (9867-8189) /uL Lymph # (Auto) (6539-3372) /uL [place] # (Auto) (0-900) /uL Eos # (Auto) (0-450) /uL Baso # (Auto) (0-100) /uL PT (10.1-12.7) SECONDS INR (0.9-1.3) APTT (26-36) SECONDS Sodium (137-145) mmol/L Potassium (3.4-5.1) mmol/L Chloride (98-107) mmol/L Carbon Dioxide (22-32) mmol/L BUN (9-20) mg/dL Creatinine (0.66-1.25) mg/dL Estimated GFR (>60) mL/min BUN/Creatinine Ratio (6-22) Glucose (80-110) mg/dL Calcium (8.4-10.2) mg/dL Magnesium (1.6-2.3) mg/dL Total Bilirubin (0.2-1.3) mg/dL AST (17-59) IU/L ALT (<50) IU/L Alkaline Phosphatase (38-126) U/L Total Creatine Kinase 104 (55-170) U/L CK-MB (CK-2) TNP CK-MB (CK-2) Rel Index TNP Troponin I 0.016 (0.01-0.034) ng/mL Total Protein (6.3-8.2) g/dL Albumin (3.5-5.0) g/dL Globulin (1.7-4.1) g/dL Albumin/Globulin Ratio (1.0-2.8) Lipase (23-300) U/L Imaging Data Chest x-ray: Radiologist's Impression: PROCEDURE:? XR CHEST 1V ? INDICATIONS:? chest pain ? TECHNIQUE:? One view of the chest was acquired.? ? COMPARISON:? [facility], , XR CHEST 2V, 09/23/2021, 13:01. ? FINDINGS:? ? Surgical changes and devices:? None.? ? Lungs and pleura:? Lungs are clear.? No pleural effusions or pneumothorax.? ? Mediastinum:? Mediastinal contours appear normal.? Heart size is normal.? ? Bones and chest wall:? No suspicious bony lesions.? Overlying soft tissues appear unremarkable.? ? IMPRESSION:? ? 1.? No acute cardiopulmonary disease. ECG Data Attestation: I personally reviewed and interpreted this ECG as follows: Interpretation: Sinus bradycardia Ventricular rate of 58 Occasional PAC Normal axis No ST T wave changes MDM Narrative Medical decision making narrative: Patient had symptoms that he presents with today for 20 years. He has had a cardiac workup in the past but it was 15 years ago when he would a catheteriz ation and 2-3 years ago when he had a stress test. He states that the past 20 years every time he goes out to exercise AC gets discomfort. He has noticed a decreased exercise tolerance during this time. Today in the emergency department there is no new symptoms he decided he should come in to be evaluated. He is had 2- troponins. Has a low risk heart score. I have no doubt that the patient would benefit from further risk stratification testing but given the fact this has been going on for 2 decades having him contact his primary provider to have an outpatient stress test is not unreasonable. Will discharge patient home with instructions to contact his primary doctor for follow-up. He was given return precautions. Expressed understanding and agreement Discharge Plan Departure Patient Disposition: Home Clinical Impression: Chest pain Instructions: DI for Chest Pain Activity Restrictions/Additional Instructions: I do recommend that you continue to take all of your medications as directed. I also recommend that you talk with your primary doctor about a referral to have a stress test and also a potential referral to see Cardiology. Return to the emergency department for new or worsening symptoms. Prescriptions: No Action ascorbate calcium (vitamin C) 500 mg tablet 500 mg PO DAILY cholecalciferol (vitamin D3) 10 mcg (400 unit) capsule 10 mcg PO DAILY vitamin E 200 unit capsule 200 unit PO DAILY Paxlovid (EUA) 150-100 mg tablet See Rx Instructions .ROUTE .COMPLEX Qty: 20 0RF Rx Instructions: orally per package directions. Take Nirmatrelvir 150 mg and ritonavir 100 mg twice daily for 5 days. GFR: 40, Creatinine 1.71 (baseline); Day 3 of covid-19 symptoms. Stop atorvastatin when taking Paxlovid. benzonatate 200 mg capsule 200 mg PO TID PRN (Reason: cough) Qty: 30 0RF azithromycin 250 mg tablet See Rx Instructions .ROUTE .COMPLEX Qty: 6 0RF Rx Instructions: For 250 mg dose pack: take 500 mg today (day 1), then 250 mg for 4 days (days 2-5) pantoprazole [Protonix] 40 mg tablet,delayed release (DR/EC) 40 mg PO DAILY Qty: 20 0RF carbidopa-levodopa 10-100 mg tablet 1 tab PO TID aspirin [Adult Aspirin Regimen] 81 mg tablet,delayed release (DR/EC) 81 mg PO DAILY cranberry conc-ascorbic acid 4,200-20 mg capsule PO multivitamin Tablet 1 tab PO DAILY omega-3 fatty acids 1,000 mg capsule 1,000 mg PO DAILY B-complex with vitamin C [Super B Complex-Vitamin C] Tablet 1 tab PO DAILY vitamin E 1,150 unit/1.25 mL liquid 1,150 unit PO DAILY turmeric root extract 1,053 mg tablet 1,076 mg PO DAILY prevagen PO Referrals: Yesenia Christine PA-C [Primary Care Provider] - Stand Alone Forms: Patient Portal/API
[2022-09-25 20:11] LABS: Troponin I < 0.012 ng/mL (0.01-0.034)
[2022-09-25 21:46] LABS: Creatine Kinase 104 U/L (55-170)
[2022-09-25 21:57] LABS: Troponin I 0.016 ng/mL (0.01-0.034)
== END 2022-09-25 22:44 | disposition home or self-care (01) ==
PROVIDERS: Emergency Provider Emergency Medicine; Family Provider Student in an Organized Health Care Education/Training Program; PCP Student in an Organized Health Care Education/Training Program
DX: R07.9 Chest pain, unspecified (principal)
CPT/HCPCS: 36415; 71045; 80053; 82550; 83690; 83735; 84484; 85025; 85610; 85730; 93005; 93010; 99283; 99284

== ENCOUNTER → 2022-10-21 13:27 | Outpatient (CLI) | payer MEDICARE, SELFPAY ==
[2022-10-21 14:59] LABS: Hematocrit 40.6 % (41-53); Hemoglobin 13.8 g/dL (13.5-17.5)
[2022-10-21 15:33] LABS: BUN Creatinine Ratio 8.6 (6-22); Blood Urea Nitrogen 14 mg/dL (9-20); Carbon Dioxide 26 mmol/L (22-32); Chloride 103 mmol/L (98-107); Estimated Glomerular Filt Rate 43 mL/min (>60); Glucose 86 mg/dL (80-110); HEMOLYSIS < 15 (0-50); Sodium 137 mmol/L (137-145)
[2022-10-21 16:09] LABS: Potassium 5.4 mmol/L (3.4-5.1)
[2022-10-21 16:20] LABS: Creatinine Urine Random 37.6 mg/dL; Protein (Total) Urine Random 14 mg/dL (0-12); Protein Creatinine Ratio Urine 0.37 GRAM/24H
[2022-10-23 09:28] LABS: Parathyroid Hormone Int 60 pg/mL (15-65)
== END ==
PROVIDERS: Family Provider Student in an Organized Health Care Education/Training Program; PCP Student in an Organized Health Care Education/Training Program; Referring Provider Student in an Organized Health Care Education/Training Program; Visit Provider Student in an Organized Health Care Education/Training Program
DX: N05.9 Unspecified nephritic syndrome with unspecified morphologic changes (principal); D64.9 Anemia, unspecified; N25.81 Secondary hyperparathyroidism of renal origin; R80.9 Proteinuria, unspecified
CPT/HCPCS: 36415; 80048; 82570; 83970; 84156; 85014; 85018

== ENCOUNTER → 2022-10-27 09:15 | Outpatient (CLI) | payer MEDICARE, SELFPAY ==
[2022-10-27 10:03] LABS: HEMOLYSIS < 15 (0-50)
== END ==
PROVIDERS: Family Provider Student in an Organized Health Care Education/Training Program; PCP Student in an Organized Health Care Education/Training Program; Referring Provider Student in an Organized Health Care Education/Training Program; Visit Provider Student in an Organized Health Care Education/Training Program
DX: E87.5 Hyperkalemia (principal)
CPT/HCPCS: 36415; 84132

== ENCOUNTER → 2022-12-03 10:36 | Outpatient (CLI) | payer MEDICARE, SELFPAY ==
--- NOTE | 2022-12-03 10:38 | DI.RAD.S_ITS ---
PROCEDURE: FL BARIUM SWALLOW W SPEECH INDICATIONS: Parkinson's disease COMPARISON: None. TECHNIQUE: Examination was conducted in conjunction with speech pathology per standard protocol. In the lateral projection, filming was performed of the patient swallowing. AP projection filming may also be performed with patient swallowing. COMPARISON: FINDINGS: The oral preparatory phase appears normal, with proper containment. The subsequent oral propulsive phase, pharyngeal phase, and esophageal phase of swallowing also appear normal with all proffered substances. No laryngotracheal penetration or aspiration. Mild piriform sinus residue present. IMPRESSION: 1. No tracheal aspiration visualized during the exam. 2. Please see the speech pathologist report for additional details. Dictated by: Darrius Moses M.D. on 12/03/2022 at 14:09 Approved by: Darrius Moses M.D. on 12/03/2022 at 14:10
--- NOTE | 2022-12-03 15:48 | ST.SWALLOW ---
Visit Care Team Role Provider Type Yesenia Chrisitne PA-C Family Provider Physician Pulmonology Physician Primary Care Provider Specialty: Medical Address: [address] [place] [address], [id number] Email: [email or web address] Referring Provider Specialty: Address: Phone: Fax: Email: ST Modified Barium Swallow Study SEARCH OPTIMIZATION ANALYST Modified Barium Swallow Study Start: 12/03/22 14:43 Freq: Status: Active Protocol: Document 12/03/22 14:43 LNK (Rec: 12/03/22 15:48 LNK [id number]) Modified Barium Swallow Study Total Time Visit Start Time 11:00 Visit Stop Time 11:30 Total Visit Minutes 30 Referral Referring Physician Yesenia Christine PA-C Setting Setting Outpatient Care Patient Information Identification Type Name,Date of Patient History Pt was seen for a Modified Barium Swallow Study at the referral of Yesenia Christine PA-C. Pt reported he was diagnosed with Parkinson's Disease approximately 2 years ago. He has been followed for speech therapy through [facility], seeing Zarina Estrada [facility]-SEARCH OPTIMIZATION ANALYST. Pt reported he has been working with speech and are now looking into his swallowing. He reported also receiving cognitive therapy as well. pt described his swallowing as coughing on liquids and foods getting stuck in his throat. He noted that when he is not distracted and mindful of swallowing he has no difficulty. pt reported that he has GERD. If he bends over , he will feel the acid in his throat, he reported. Subjective Observations Pt was seated in the fluoroscopy chair with directions and procedures described for him. He indicated he understood and agreed to proceede. Patient Positioning Position View Lat-A/P Imaging Lateral View Textures Administered Trials Presented Thin Liquid via Spoon (IDDSI 0 ),Thin Liquid via Cup (IDDSI 0 ),Extremely Thick Liquid via Spoon (IDDSI 4),Regular (IDDSI 7) Barium Tablet Yes The IDDSI Framework Protocol: IDDSI.1 Oral Impairment Source: The Modified Barium Swallow Impairment Profile (MBSImP??) Lip Closure No labial escape Tongue Control During Bolus Hold Posterior escape of greater than half of bolus Bolus Preparation/Mastication Slow prolonged chewing/mashing with complete re-collection Bolus Transport/Lingual Motion Delayed initiation of tongue motion Oral Residue Trace residue lining oral structures Location Tongue Initiation of Pharyngeal Swallow Bolus head at pyriforms Additional Oral Impairment Observations Pt's OME was observed to be WFL. His ligual lateralization appeared to lack coordination and DKS was noted to be slow. He had difficulty with rapid production of mutisyllabic words. When slowing his rate, his speech accuracy improved. Speech was 100% intelligible . His voice was soft. ORAL PHASE: mastication appeared to be WFL. Pt demonstrated a rotary chew pattern. Mastication was mildly slower than expected with adequate bolus formation. Bolus control and AP transition were observed to be WFL. Minimal to no oral residue was observed. Pharyngeal Impairment Source: The Modified Barium Swallow Impairment Profile (MBSImP??) Soft Palate Elevation No bolus between soft palate & pharyngeal wall Laryngeal Elevation Comp.sup.move.thyroid cart.w/ comp.approx.arytenoids to epiglot petiole Anterior Hyoid Excursion Complete anterior movement Epiglottic Movement Partial inversion Laryngeal Vestibular Closure Incomplete; narrow column air/ contrast in laryngeal vestibule Pharyngeal Stripping Wave Present - diminished Pharyngoesophageal Segment Opening Partial distention/partial duration; partial obstruction of flow Tongue Base Retraction Narrow column of contrast/air betwn tongue base & post. pharyngeal wall Pharyngeal Residue Collection of residue within/ on pharyngeal structures Location Diffuse (>3 areas) Additional Pharyngeal Impairment Mild base of tongue weakness Observations was observed. Hyolaryngeal elevation and movement were adequate with partial inversion of the epiglottis. Laryngeal penetration was observed x3 with no aspiration noted. Posterior pharyngeal wall stripping was diminished resulting in diffuse pharyngeal residue, especially the valeculla and the pyriform sinuses. The upper portion of the pharyngeal wall , in a lateral position appeared to be thicker than expected. This did not appear to affect the bolus flow, but there appeared to be restriction of space between the pharyngeal wall and the base of tongue. Osteophytes at C3-C4 were observed to alter the shape of the pharynx above and proximal to the PES. There was restriction of the duration and extension of the PES, requiring ~3-5 swallows/ trial. Additionally, osteophytes at C4-C5 and C5-C6 , below the PES continued to alter the shape of the esophagus. The overall shape appeared to be a series of s- shapes. A CP bar was also noted. A referral to GI for further evaluation is recommended. ENT referral is recommended for further assessment. Continuation of ST for swallow therapy is also recommended. A/P View Textures Administered Trials Presented Thin Liquid via Cup (IDDSI 0) The IDDSI Framework Protocol: IDDSI.1 A/P View Observations Pharyngeal Contraction Complete Esophageal Clearance Upright Position Complete clearance; esophageal coating Esophageal Function WFL Additional A-P Observations The pt was able to swallow thin liquids and a barium tablet WFL. Esophageal emptying to the stomach was timely without restriction or slowing. Clinical Impressions Dysphagia Type Pharyngeal Rehabilitation Potential Good Patient Appropriate for Therapy Yes: Continue therapy as indicated Recommendations Diet Liquids Order Thin (IDDSI 0) Diet Order Regular (IDDSI 7) Medication Recommendation As Tolerated Aspiration Precautions Recommended Precautions Upright at 90 Degrees Additional Precautions Decrease distractions; increase swallow mindfulness when eating/drinking Treatment Plan Therapy Recommendations Outpatient Speech Therapy Recommended Referrals GI Consult,ENT Consult Additional Recommended Referrals Continue ST services Therapy Strategy Recommendations Reclined Position,Small Bites and Sips
== END ==
PROVIDERS: Family Provider Student in an Organized Health Care Education/Training Program; PCP Student in an Organized Health Care Education/Training Program; Referring Provider Psychiatry & Neurology Neurology; Visit Provider Psychiatry & Neurology Neurology
DX: G20 Parkinson's disease (principal)
CPT/HCPCS: 74230; 92611

== ENCOUNTER → 2023-01-07 12:27 | Outpatient (CLI) | payer OTHER, SELFPAY ==
--- NOTE | 2023-01-07 | DI.ECHO.S_ITS ---
[facility] +---------+ : : [address] : : : : [id number] : : : : Phone: [phone] Echocardiogram Report + + :Name: ANGIE PALMER Study Date: 01/07/2023 Height: 71 in : :[facility] ReadingLocation: Weight: 185 lb : : Gender: Male BSA: 2.0 m2 : :: 1940 Age: 82 yrs BP: 160/83 mmHg: :Reason For Study: CHEST PAIN : :Ordering Physician: RAZIA, : :JEREMIAS Performed By: Zarina Suresh : :Referring: JEREMIAS RANDLE : + + Interpretation Summary Left ventricular ejection fraction is estimated to be 50 +/- 5%. Diastolic parameters suggest probable normal left ventricular diastolic function and normal filling pressures. The right ventricular systolic function is normal. The right ventricular systolic pressure is estimated to be at least 23 mmHg based on an estimated right atrial pressure of 3 mm Hg. No significant valvular abnormality. Procedure: A two-dimensional transthoracic echocardiogram with color flow and Doppler was performed. The study quality was technically adequate. There is no prior echocardiogram noted for this patient. The patient was in sinus bradycardia with heart rates between 44-50 bpm during the exam. Left Ventricle: The left ventricle is normal in size and wall thickness. Left ventricular ejection fraction is estimated to be 50 +/- 5%. There are no obvious focal wall motion abnormalities noted but poor endocardial definition reduces the sensitivity for the detection of such. Diastolic parameters suggest probable normal left ventricular diastolic function and normal filling pressures. Right Ventricle: The right ventricle is borderline dilated. The right ventricular systolic function is normal. Atria: The left atrial size is normal. Right atrial size is normal. There is no Doppler evidence for an interatrial shunt. Mitral Valve: The mitral valve is normal in structure and function. There is mild mitral regurgitation. Aortic Valve: The aortic valve is trileaflet. The aortic valve opens well. There is no aortic valve stenosis. No aortic regurgitation is present. Tricuspid Valve: The tricuspid valve is normal in structure and function. There is trace tricuspid regurgitation. The right ventricular systolic pressure is estimated to be at least 23 mmHg based on an estimated right atrial pressure of 3 mm Hg. Pulmonic Valve: The pulmonic valve leaflets are thin and pliable; valve motion is normal. There is mild pulmonic regurgitation. Great Vessels: The aortic root is normal size. The dimensions of the ascending aorta are normal. The IVC is of normal diameter and collapses greater than 50% with a sniff. This suggests a low right atrial pressure of 3 mm Hg. Pericardium/ Pleura There is no pericardial effusion. There is no pleural effusion. MMode/2D Measurements & Calculations LVIDd: 5.7 cm LVOT diam: 2.3 cm LVIDs: 4.8 cm Ao root diam: 3.7 cm FS: 14.9 % asc Aorta Diam: 3.5 cm EPSS: 0.75 cm IVSd: 0.83 cm LVPWd: 0.94 cm LV grullon. diameter/BSA (cm/m^2): 2.8 LV sys. diameter/BSA (cm/m^2): 2.4 LA A2 area: 21.2 cm2 RA long axis: 5.7 cm LA A4 area: 19.7 cm2 RA area: 17.8 cm2 LA length (vol): 5.8 cm RA vol: 47.2 ml LA vol: 61.2 ml RA : 23.1 ml/m2 LA vol index: 30.0 ml/m2 IVC diam: 1.7 cm RVD1 (basal): 4.2 cm RVD2 (mid): 2.7 cm TAPSE: 1.8 cm Doppler Measurements & Calculations Ao V2 max: 109.5 cm/sec LVOT Max Allan: 99.2 cm/sec Ao V2 mean: 73.1 cm/sec LV V1 max P.9 mmHg Ao max P.8 mmHg LV V1 VTI: 22.0 cm Ao mean P.4 mmHg DIYA(I,D): 3.7 cm2 Ao V2 VTI: 25.0 cm DIYA(V,D): 3.8 cm2 sev ratio: 0.88 DIYA indexed to BSA (cm^2/m^2): 1.8 MV E max allan: 46.7 cm/sec TR max allan: 224.6 cm/sec MV A max allan: 48.8 cm/sec TR max P.2 mmHg MV E/A: 0.96 PA V2 max: 77.2 cm/sec Med Peak E' Allan: 5.9 cm/sec PA V2 mean: 49.7 cm/sec E/E' med: 7.9 PA mean P.2 mmHg Lat Peak E' Allan: 10.7 cm/sec PA pr(Accel): 19.1 mmHg E/E' lat: 4.4 E/e' average: 6.1 MV dec time: 0.49 sec SV(LVOT): 91.8 ml Reading Physician:BROOKE
== END ==
PROVIDERS: Family Provider Student in an Organized Health Care Education/Training Program; PCP Student in an Organized Health Care Education/Training Program; Referring Provider Internal Medicine; Visit Provider Internal Medicine
DX: I34.0 Nonrheumatic mitral (valve) insufficiency (principal); I37.1 Nonrheumatic pulmonary valve insufficiency; R07.9 Chest pain, unspecified
CPT/HCPCS: 93306

== ENCOUNTER → 2023-03-10 11:00 | Outpatient (CLI) | payer OTHER, SELFPAY ==
--- NOTE | 2023-03-10 | DI.RAD.S_ITS ---
PROCEDURE: XR SHOULDER LT MIN 2V INDICATIONS: SHOULDER PAIN TECHNIQUE: 3 views of the shoulder were acquired. COMPARISON: None. FINDINGS: Bones: No fractures or dislocations. No suspicious bony lesions. Visualized ribs appear intact. Moderate acromioclavicular joint osteoarthritis. Mild glenohumeral joint osteoarthritis. Soft tissues: No suspicious soft tissue calcifications. IMPRESSION: Osteoarthritis. No fracture. No acute osseous lesion. If symptoms and/or clinical suspicion for pathology persists, further assessment with repeat radiographs (7-10 days) or advanced imaging (e.g. CT, MRI or bone scan) should be considered. Dictated by: Alsyon Verduzco MD, PhD on 03/10/2023 at 13:57 Approved by: Alyson Verduzco MD, PhD on 03/10/2023 at 13:58
--- NOTE | 2023-03-10 | DI.RAD.S_ITS ---
PROCEDURE: XR SHOULDER RT MIN 2V INDICATIONS: SHOULDER PAIN TECHNIQUE: 3 views of the shoulder were acquired. COMPARISON: None. FINDINGS: Bones: No fractures or dislocations. No suspicious bony lesions. Visualized ribs appear intact. Moderate acromioclavicular joint and glenohumeral joint osteoarthritis. Soft tissues: No suspicious soft tissue calcifications. IMPRESSION: Osteoarthritis. No fracture. No acute osseous lesion. If symptoms and/or clinical suspicion for pathology persists, further assessment with repeat radiographs (7-10 days) or advanced imaging (e.g. CT, MRI or bone scan) should be considered. Dictated by: Alyson Verduzco MD, PhD on 03/10/2023 at 13:58 Approved by: Alyson Verduzco MD, PhD on 03/10/2023 at 13:59
--- NOTE | 2023-03-10 | DI.RAD.S_ITS ---
PROCEDURE: XR HIP W PEL IF DONE BILAT 2V INDICATIONS: PELVIC PAIN TECHNIQUE: AP pelvis with lateral view(s) of the bilateral hip(s). COMPARISON: None. FINDINGS: Bones: No fractures or dislocations. Pelvic ring appears intact. No suspicious bony lesions. Moderate bilateral hip osteoarthritis with osseous hypertrophy, subchondral sclerosis and mild joint space narrowing. Soft tissues: The visualized bowel gas pattern is normal. No suspicious soft tissue calcifications. IMPRESSION: Mild bilateral hip osteoarthritis. Dictated by: Alyson Verduzco MD, PhD on 03/10/2023 at 13:59 Approved by: Alyson Verduzco MD, PhD on 03/10/2023 at 13:59
== END ==
PROVIDERS: Family Provider Student in an Organized Health Care Education/Training Program; PCP Student in an Organized Health Care Education/Training Program; Referring Provider Student in an Organized Health Care Education/Training Program; Visit Provider Student in an Organized Health Care Education/Training Program
DX: M19.011 Primary osteoarthritis, right shoulder (principal); M19.012 Primary osteoarthritis, left shoulder; M16.0 Bilateral primary osteoarthritis of hip; M25.511 Pain in right shoulder; M25.512 Pain in left shoulder; R10.2 Pelvic and perineal pain
CPT/HCPCS: 73030; 73521

== ENCOUNTER → 2023-03-23 10:49 | Outpatient (CLI) | payer OTHER, SELFPAY ==
[2023-03-23 11:56] LABS: Hematocrit 41.7 % (41-53); Hemoglobin 14.3 g/dL (13.5-17.5)
[2023-03-23 12:09] LABS: BUN Creatinine Ratio 12.7 (6-22); Blood Urea Nitrogen 20 mg/dL (9-20); Calcium 9.7 mg/dL (8.4-10.2); Carbon Dioxide 25 mmol/L (22-32); Chloride 106 mmol/L (98-107); Estimated Glomerular Filt Rate 44 mL/min (>60); Glucose 79 mg/dL (80-110); HEMOLYSIS < 15 (0-50); Potassium 4.9 mmol/L (3.4-5.1); Sodium 138 mmol/L (137-145)
[2023-03-23 12:33] LABS: Creatinine Urine Random 30.9 mg/dL; Protein (Total) Urine Random 12 mg/dL (0-12); Protein Creatinine Ratio Urine 0.38 GRAM/24H
[2023-03-25 08:54] LABS: Parathyroid Hormone Int 35 pg/mL (15-65)
== END ==
PROVIDERS: Family Provider Student in an Organized Health Care Education/Training Program; PCP Student in an Organized Health Care Education/Training Program; Referring Provider Student in an Organized Health Care Education/Training Program; Visit Provider Student in an Organized Health Care Education/Training Program
DX: N05.9 Unspecified nephritic syndrome with unspecified morphologic changes (principal); D64.9 Anemia, unspecified; N25.81 Secondary hyperparathyroidism of renal origin; R80.9 Proteinuria, unspecified
CPT/HCPCS: 36415; 80048; 82570; 83970; 84156; 85014; 85018

== ENCOUNTER 2023-04-03 13:29 | Emergency (ER) | payer OTHER, SELFPAY ==
[2023-04-03 13:31] VITALS: BP 144/69; PULSE 65; RESP 14; TEMP 36.2; O2SAT 100; BMI 25.7
--- NOTE | 2023-04-03 17:33 | ED_ITS ---
HPI - Back Pain/Injury General Chief Complaint: Back Pain/Injury Stated Complaint: back pain Time Seen by Provider: 04/03/23 15:14 Source: patient History of Present Illness HPI Narrative: Patient is a 82-year-old male history of Parkinson's presenting today with acute on chronic back pain. Reports that last week he bent over to get a washcloth he felt a little pain then but it ultimately got better. Last night he went to get into boot to eat and he started having pain periods difficult time getting comfortable last night but was ultimately able to sleep. He is pain all across his lumbar spine. He is having some more difficulty walking due to pain. He took Tylenol which he did not have any relief with. He is unable to take NSAIDs secondary to some kidney disease. No changes in bowel or bladder habits. states that he does have back pain sometimes but definitely worse over last couple of days Related Data Home Medications Medication Instructions Recorded Confirmed ascorbate calcium (vitamin C) 500 500 mg PO DAILY 10/06/19 07/19/20 mg tablet cholecalciferol (vitamin D3) 10 10 mcg PO DAILY 10/06/19 07/19/20 mcg (400 unit) capsule vitamin E 200 unit capsule 200 unit PO DAILY 10/06/19 07/19/20 B-complex with vitamin C (Super B 1 tab PO DAILY 03/14/20 07/19/20 Complex-Vitamin C tablet) aspirin 81 mg tablet,delayed 81 mg PO DAILY 03/14/20 07/19/20 release (Adult Aspirin Regimen) cranberry concentrate-ascorbic cap PO 03/14/20 07/19/20 acid 4,200 mg-20 mg capsule multivitamin 1 tab PO DAILY 03/14/20 07/19/20 omega-3 fatty acids 1,000 mg 1,000 mg PO DAILY 03/14/20 07/19/20 capsule prevagen PO 03/14/20 07/19/20 turmeric root extract 1,053 mg 1,076 mg PO DAILY 03/14/20 07/19/20 tablet vitamin E 1,150 unit/1.25 mL oral 1,150 unit PO DAILY 03/14/20 07/19/20 liquid carbidopa 10 mg-levodopa 100 mg 1 tab PO TID 07/19/20 07/19/20 tablet Previous Rx's Medication Instructions Recorded pantoprazole 40 mg tablet,delayed 40 mg PO DAILY #20 tabs 09/22/19 release (Protonix) azithromycin 250 mg tablet See Rx Instructions PO .COMPLEX #6 09/23/21 tabs benzonatate 200 mg capsule 200 mg PO TID PRN cough #30 caps 09/23/21 nirmatrelvir 150 mg-ritonavir 100 See Rx Instructions PO .COMPLEX 09/23/21 mg tablets in a dose pack #20 tabs (Paxlovid) hydrocodone 5 mg-acetaminophen 325 1 tab PO Q6H PRN pain #14 tabs 04/03/23 mg tablet hydrocodone 5 mg-acetaminophen 325 1 tab PO Q6H PRN pain #14 tabs 04/03/23 mg tablet Allergies Allergy/AdvReac Type Severity Reaction Status Date / Time Penicillins [PENICILLINS] Allergy Unknown Verified 04/03/23 13:31 Review of Systems Review of Systems ROS Unobtainable: All systems reviewed & are unremarkable except as noted in HPI and below Patient History Medical History Nephrolithiasis BPH loc w/o ur obs/LUTS Male circumcision Renal disease Kidney stones Skin cancer Surgical History Vasectomy status Previous back surgery Hx of appendectomy Family History Father Diabetes mellitus Social History marital status: Smoking Status: Never smoker alcohol intake: current caffeine: Yes Smoking Status: Never smoker alcohol intake frequency: holidays/special occasions only Substance Use Type: does not use Exam Initial Vital Signs Initial Vital Signs: Vital Signs Temperature 97.2 F L 04/03/23 13:31 Pulse Rate 65 04/03/23 13:31 Respiratory Rate 14 04/03/23 13:31 Blood Pressure 144/69 H 04/03/23 13:31 Pulse Oximetry 100 04/03/23 13:31 Oxygen Delivery Method Room Air 04/03/23 13:31 GENERAL: Alert very pleasant patient 82-year-old male and in no acute distress. HEENT: Head atraumatic,EOMI, pupils reactive, face symmetric, moist mucous membranes CARDIOVASCULAR: Regular rate and rhythm without murmurs, rubs or gallops. RESPIRATORY: Breath sounds equal bilaterally, no wheezes rales or rhonchi. ABDOMEN: Soft, nontender. Normoactive bowel sounds all 4 quadrants. No guarding or rebound. BACK: No vertebral tenderness no step-off tender all across lumbar spine without pinpoint area EXTREMITIES: Normal range of motion, no clubbing or edema. Neurovascularly intact NEUROLOGICAL: Alert and oriented x4.Normal gait and speech. SKIN: Warm, dry, no laceration, no petechiae, no rashes or lesions. Course Orders Ordered: Discontinued Medications Hydrocodone Bitart/Acetaminophen (Hydrocodone/Acet 5/325 Tablet) 1 tab PO NOW ONE Stop: 04/03/23 17:34 Last Admin: 04/03/23 17:37 Dose: 1 tab Documented By: HUGO Vital Signs Vital signs: Vital Signs - 8 hr 04/03/23 13:31 Temperature 97.2 F L Pulse Rate 65 Respiratory Rate 14 Blood Pressure 144/69 H Pulse Oximetry 100 Oxygen Delivery Method Room Air MDM - Back Pain/Injury MDM Narrative Medical decision making narrative: Patient is a 82-year-old male history of Parkinson's who has had back pain in the past reports if he lays still the back pain gets better. However thought getting any better. He is no cauda equina symptoms. He is afebrile blood pressure is stable. Definitely worse with movement and palpation. This is consistent musculoskeletal injury rather than dissection or other. Discharge Plan Departure Patient Disposition: Home Clinical Impression: Acute exacerbation of chronic low back pain Instructions: DI for Low Back Pain Activity Restrictions/Additional Instructions: *You have been diagnosed with acute on chronic back pain *What to do: At this time increase activity as tolerated recommend heating pad. *Continue to take medications as directed [place] 1-2 tablets every 6 hours if needed for severe pain *Follow up with your primary care provider in 2-3 days or call [phone] *Return to ER if you should have increasing pain leg weakness falling change in bowel or bladder habits or any new, worsening or concerning symptoms CONTROLLED SUBSTANCE DISCHARGE (Narcotoic/benzodiazepine/Flexeril/Phenergan) 1. You have been prescribed narcotic medications, it does have acetaminophen/Tylenol/paracetamol in it, DO NOT TAKE MORE THAN 4,00mg in 24 hours of Tylenol. TRAMADOL DOES NOT CONTAIN TYLENOL 2. Please understand that we cannot provide further refills of narcotics, benzodiazepines or controlled substances through the ED and her pain management will need to be through your provider. 3. While on these medications you cannot drive or operate heavy machinery. 4. You cannot sign legal documents or perform any duties such as this. 5. As long as you're taking opiate pain medications he should also be taking a stool softener such as Colace, Dulcolax, MiraLAX or prune juice, to help avoid constipation. Prescriptions: New hydrocodone-acetaminophen 5-325 mg tablet 1 tab PO Q6H PRN (Reason: pain) Qty: 14 0RF hydrocodone-acetaminophen 5-325 mg tablet 1 tab PO Q6H PRN (Reason: pain) Qty: 14 0RF No Action ascorbate calcium (vitamin C) 500 mg tablet 500 mg PO DAILY cholecalciferol (vitamin D3) 10 mcg (400 unit) capsule 10 mcg PO DAILY vitamin E 200 unit capsule 200 unit PO DAILY Paxlovid 150-100 mg tablet See Rx Instructions .ROUTE .COMPLEX Qty: 20 0RF Rx Instructions: orally per package directions. Take Nirmatrelvir 150 mg and ritonavir 100 mg twice daily for 5 days. GFR: 40, Creatinine 1.71 (baseline); Day 3 of covid-19 symptoms. Stop atorvastatin when taking Paxlovid. benzonatate 200 mg capsule 200 mg PO TID PRN (Reason: cough) Qty: 30 0RF azithromycin 250 mg tablet See Rx Instructions .ROUTE .COMPLEX Qty: 6 0RF Rx Instructions: For 250 mg dose pack: take 500 mg today (day 1), then 250 mg for 4 days (days 2-5) pantoprazole [Protonix] 40 mg tablet,delayed release (DR/EC) 40 mg PO DAILY Qty: 20 0RF carbidopa-levodopa 10-100 mg tablet 1 tab PO TID aspirin [Adult Aspirin Regimen] 81 mg tablet,delayed release (DR/EC) 81 mg PO DAILY cranberry conc-ascorbic acid 4,200-20 mg capsule PO multivitamin Tablet 1 tab PO DAILY omega-3 fatty acids 1,000 mg capsule 1,000 mg PO DAILY B-complex with vitamin C [Super B Complex-Vitamin C] Tablet 1 tab PO DAILY vitamin E 1,150 unit/1.25 mL liquid 1,150 unit PO DAILY turmeric root extract 1,053 mg tablet 1,076 mg PO DAILY prevagen PO Referrals: Yesenia Christine PA-C [Primary Care Provider] - Stand Alone Forms: Patient Portal/API
[2023-04-03] MEDS: HYDROCODONE/ACET 5/325 TABLET 1 TAB PO (17:37)
--- NOTE | 2023-04-03 17:41 | PC.NURSE ---
Pt accidentally dropped the first norco on the floor; wasted with Estelita PLATA and pulled 2nd pill.
== END 2023-04-03 17:48 | disposition home or self-care (01) ==
PROVIDERS: Emergency Provider Emergency Medicine; Family Provider Student in an Organized Health Care Education/Training Program; PCP Student in an Organized Health Care Education/Training Program
DX: M54.59 Other low back pain (principal)
CPT/HCPCS: 99283

== ENCOUNTER → 2023-04-24 11:12 | Outpatient (CLI) | payer OTHER, SELFPAY ==
--- NOTE | 2023-04-24 | DI.RAD.S_ITS ---
PROCEDURE: XR LUMBAR SPINE 2-3V INDICATIONS: CHRONIC MIDLINE LOW BACK PAIN W/O SCIATICA TECHNIQUE: 3 views of the lumbar spine were acquired. COMPARISON: [facility], , XR LUMBAR SPINE 2-3V, 09/06/2019, 10:34. FINDINGS: Bones: Convex right thoracolumbar degenerative scoliosis present approved normal osseous mineralization. Diffuse disc space narrowing, anterior osteophytes and hypertrophic facet joints noted particularly in the lumbar spine. No significant malalignment. Vertebral body height is preserved. Soft tissues: Overlying bowel gas pattern is normal. No suspicious soft tissue calcifications. IMPRESSION: Degenerative disc disease, arthropathy and degenerative scoliosis, similar to the prior exam Approved by: Avery Gonzales M.D. on 04/24/2023 at 14:11
== END ==
LOC: RAD 11:14
PROVIDERS: Family Provider Student in an Organized Health Care Education/Training Program; PCP Student in an Organized Health Care Education/Training Program; Referring Provider Internal Medicine; Visit Provider Internal Medicine
DX: M51.36 Other intervertebral disc degeneration, lumbar region (principal); M47.816 Spondylosis without myelopathy or radiculopathy, lumbar region; M41.9 Scoliosis, unspecified; M54.50 Low back pain, unspecified; G89.29 Other chronic pain
CPT/HCPCS: 72100

== ENCOUNTER 2023-05-28 16:06 | Inpatient (IN) | payer OTHER, SELFPAY ==
[2023-05-28] VITALS (12 sets, daily range): BP systolic 104–129; BP diastolic 54–60; PULSE 70–107; RESP 11–28; TEMP 37.5–39.4; O2SAT 92–98; BMI 27.0; BMI 25.3
--- NOTE | 2023-05-28 16:23 | DI.RAD.S_ITS ---
PROCEDURE: XR CHEST 1V INDICATIONS: suspected sepsis TECHNIQUE: One view of the chest was acquired. COMPARISON: [facility], CR, XR CHEST 1V, 09/25/2022, 19:43. FINDINGS: Surgical changes and devices: None. Lungs and pleura: Lungs are clear. No pleural effusions or pneumothorax. Mediastinum: Mediastinal contours appear normal. Heart size is normal. Bones and chest wall: No suspicious bony lesions. Overlying soft tissues appear unremarkable. IMPRESSION: No acute cardiopulmonary abnormality is seen. Dictated by: Jona Esteves M.D. on 05/28/2023 at 16:49 Approved by: Jona Esteves M.D. on 05/28/2023 at 16:49
--- NOTE | 2023-05-28 16:23 | DI.CT.S_ITS ---
PROCEDURE: CT HEAD/BRAIN WO CON INDICATIONS: AMS TECHNIQUE: Noncontrast 4.5 mm thick angled axial sections acquired from the foramen magnum to the vertex, with coronal and sagittal reformats. For radiation dose reduction, the following was used: automated exposure control, adjustment of mA and/or kV according to patient size. COMPARISON: None. FINDINGS: Image quality: Diagnostic. CSF spaces: Basal cisterns are patent. No extra-axial fluid collections. The ventricles are symmetric in size and shape. Brain: No intracranial bleeds or masses. There is cerebral volume loss for age, with resultant ventricular and sulcal prominence. There are periventricular and deep white matter chronic small vessel ischemic changes. There is intracranial internal carotid artery atherosclerosis. Skull and face: Calvarium and visualized facial bones appear intact, without suspicious lesions. Sinuses: Visualized sinuses and mastoids are clear. IMPRESSION: No CT evidence of acute intracranial process. Age-appropriate cerebral cortical volume loss and chronic microvascular ischemic changes. Dictated by: Yarely Casas M.D. on 05/28/2023 at 17:25 Approved by: Yarely Casas M.D. on 05/28/2023 at 17:26
--- NOTE | 2023-05-28 16:23 | DI.CT.S_ITS ---
PROCEDURE: CT CERVICAL SPINE WO CON INDICATIONS: ams possible fall TECHNIQUE: Noncontrast 3 mm thick sections acquired from the skull base to the T4 level. Sagittal and coronal reformats were then constructed. For radiation dose reduction, the following was used: automated exposure control, adjustment of mA and/or kV according to patient size. COMPARISON: None. FINDINGS: Image quality: Excellent. Bones: The craniocervical junction is intact. Mild degenerative space loss and spurring at the atlantodental interval. No cervical vertebral body fractures or pathologic subluxation. Moderate degenerative disc height loss and some disc calcification from C3-3 through C6. Mild posterior endplate spur formation.. Visualized superior ribs are intact. Soft tissues: Prevertebral soft tissues are normal in thickness. No paravertebral hematomas. No apical pneumothoraces. IMPRESSION: No displaced fracture or traumatic subluxation. Multilevel disc and endplate degenerative change. Dictated by: Yarely Casas M.D. on 05/28/2023 at 17:26 Approved by: Yarely Casas M.D. on 05/28/2023 at 17:29
--- NOTE | 2023-05-28 16:42 | ED.GENADULT ---
HPI - General Adult General Chief complaint: Fever Stated complaint: fall + covid Time Seen by Provider: 05/28/23 16:16 Source: patient and family Mode of arrival: EMS Limitations: altered mental status History of Present Illness HPI narrative: Patient is an 82-year-old male. History of stage 3 kidney disease and Parkinson's disease. He does not take anything for his Parkinson's. Is here with his for evaluation of a fall, confusion and being COVID positive. Patient's states that he is normally alert and oriented. Ambulates without any assistive devices. Did have a recent COVID exposure. Last evening patient was very tired. Potentially was somewhat confused. Was very restless last night with sleeping and he slept in a chair which is unusual for him. When the patient's woke up at 0500 hours this morning she went and woke him up and told him to go to bed. She tested him for COVID at that point. He was positive. He slept all day. At some point today patient's went up to check on him. It appeared that he had fallen at some point. Patient reports no injuries. He states here in the ER that he was ?fine? he denies chest pain, shortness of breath, abdominal pain or nausea or vomiting. He thinks that maybe he was somewhat confused last evening. Related Data Home Medications Medication Instructions Recorded Confirmed ascorbate calcium (vitamin C) 500 500 mg PO DAILY 10/06/19 07/19/20 mg tablet cholecalciferol (vitamin D3) 10 10 mcg PO DAILY 10/06/19 07/19/20 mcg (400 unit) capsule vitamin E 200 unit capsule 200 unit PO DAILY 10/06/19 07/19/20 B-complex with vitamin C (Super B 1 tab PO DAILY 03/14/20 07/19/20 Complex-Vitamin C tablet) aspirin 81 mg tablet,delayed 81 mg PO DAILY 03/14/20 07/19/20 release (Adult Aspirin Regimen) cranberry concentrate-ascorbic cap PO 03/14/20 07/19/20 acid 4,200 mg-20 mg capsule multivitamin 1 tab PO DAILY 03/14/20 07/19/20 omega-3 fatty acids 1,000 mg 1,000 mg PO DAILY 03/14/20 07/19/20 capsule prevagen PO 03/14/20 07/19/20 turmeric root extract 1,053 mg 1,076 mg PO DAILY 03/14/20 07/19/20 tablet vitamin E 1,150 unit/1.25 mL oral 1,150 unit PO DAILY 03/14/20 07/19/20 liquid carbidopa 10 mg-levodopa 100 mg 1 tab PO TID 07/19/20 07/19/20 tablet Previous Rx's Medication Instructions Recorded pantoprazole 40 mg tablet,delayed 40 mg PO DAILY #20 tabs 09/22/19 release (Protonix) azithromycin 250 mg tablet See Rx Instructions PO .COMPLEX #6 09/23/21 tabs benzonatate 200 mg capsule 200 mg PO TID PRN cough #30 caps 09/23/21 nirmatrelvir 150 mg-ritonavir 100 See Rx Instructions PO .COMPLEX 09/23/21 mg tablets in a dose pack #20 tabs (Paxlovid) hydrocodone 5 mg-acetaminophen 325 1 tab PO Q6H PRN pain #14 tabs 04/03/23 mg tablet hydrocodone 5 mg-acetaminophen 325 1 tab PO Q6H PRN pain #14 tabs 04/03/23 mg tablet Allergies Allergy/AdvReac Type Severity Reaction Status Date / Time Penicillins [PENICILLINS] Allergy Unknown Verified 05/28/23 16:23 Review of Systems Review of Systems ROS Unobtainable: All systems reviewed & are unremarkable except as noted in HPI and below Patient History Medical History Nephrolithiasis BPH loc w/o ur obs/LUTS Male circumcision Renal disease Kidney stones Skin cancer Surgical History Vasectomy status Previous back surgery Hx of appendectomy Family History Father Diabetes mellitus Social History marital status: Smoking Status: Never smoker alcohol intake: current caffeine: Yes Smoking Status: Never smoker alcohol intake frequency: holidays/special occasions only Substance Use Type: does not use Exam Initial Vital Signs Initial Vital Signs: Vital Signs Pulse Rate 76 05/28/23 16:13 Respiratory Rate 11 L 05/28/23 16:13 Blood Pressure 129/60 05/28/23 16:13 Pulse Oximetry 98 05/28/23 16:13 Const General: cooperative, comfortable and No ill appearing HENMT Head: normal to inspection and normocephalic Face and sinus: normal facial exam Mouth: moist mucous membranes Resp Effort & Inspection: tachypneic Auscultation: clear to auscultation bilaterally Cardio Rate: tachycardic Rhythm: regular rhythm GI Inspection: normal to inspection and non-distended Palpation: soft and No tender Skin General: no rashes or lesions noted Neuro General: patient alert, patient awake and moves all extremities Speech: speech normal Other: Oriented to person and place but does not know what year it is. Does seem to be somewhat confused about the circumstances of why he is here. Extrem General: normal to inspection Scores GCS Martín coma scale eye opening: Spontaneous [place] coma scale verbal response: Confused [place] coma scale motor response: Obey commands Martín coma scale total score: 14 Course Orders Ordered: ED Orders 05/28/23 16:23 CT cervical spine wo con Stat CT head/brain wo con Stat XR chest 1V Stat RT Consult Eval and Treat NOW 05/28/23 16:24 Urine Culture Stat 05/28/23 16:25 EKG-12 Lead Stat 05/28/23 16:30 Covid-19 + FLU A/B + RSV - PCR Stat 05/28/23 16:47 Blood Culture Stat Complete Blood Count AUTO DIFF Stat Comprehensive Metabolic Panel Stat Ethanol (ETOH) Stat Lactate (Lactic Acid) Stat Lipase Stat PTT Partial Thromboplastin Dusty Stat Procalcitonin Stat Prothrombin Time INR Stat Sodium Chloride (Normal Saline 0.9%) 1,000 mls @ 150 mls/hr IV CONT CHRISTINA Last Admin: 05/28/23 17:35 Dose: 150 mls/hr Documented By: MS Ondansetron HCl (Ondansetron 4 Mg/2 Ml Inj) 4 mg IV NOW PRN PRN Reason: Nausea And Vomiting Ondansetron HCl (Ondansetron 4 Mg Odt) 4 mg SL NOW PRN PRN Reason: Nausea And Vomiting Discontinued Medications Acetaminophen (Acetaminophen 650 Mg Supp) 650 mg GA NOW ONE Stop: 05/28/23 16:25 Last Admin: 05/28/23 16:39 Dose: Not Given Documented By: KEATON Acetaminophen (Acetaminophen 325 Mg Tablet) 975 mg PO NOW ONE Stop: 05/28/23 16:25 Last Admin: 05/28/23 16:40 Dose: Not Given Documented By: KEATON Sodium Chloride (Normal Saline 0.9%) 1,000 mls @ 1,000 mls/hr IV BOLUS ONE Stop: 05/28/23 17:22 Last Infusion: 05/28/23 17:33 Dose: Infused Documented By: Admin: 05/28/23 16:48 Dose: 1,000 mls/hr Documented By: Acetaminophen (Ofirmev) 1,000 mg in 100 mls @ 400 mls/hr IV NOW ONE Stop: 05/28/23 16:37 Last Infusion: 05/28/23 17:23 Dose: Infused Documented By: Admin: 05/28/23 16:48 Dose: 400 mls/hr Documented By: Ibuprofen (Ibuprofen 400 Mg Tablet) 800 mg PO NOW ONE Stop: 05/28/23 16:25 Last Admin: 05/28/23 16:39 Dose: Not Given Documented By: KEATON Vital Signs Vital signs: Vital Signs - 8 hr 05/28/23 16:13 05/28/23 16:13 05/28/23 16:15 Temperature 103.0 F H Pulse Rate 76 107 H Respiratory Rate 11 L 16 Blood Pressure 129/60 129/60 Pulse Oximetry 98 97 Oxygen Delivery Method Room Air 05/28/23 16:30 05/28/23 16:59 05/28/23 16:59 Temperature Pulse Rate 77 73 Respiratory Rate 28 H 26 H Blood Pressure 114/56 L Pulse Oximetry 95 95 Oxygen Delivery Method 05/28/23 17:00 05/28/23 17:00 05/28/23 17:18 Temperature Pulse Rate 75 75 Respiratory Rate 25 H 24 Blood Pressure 127/59 L Pulse Oximetry 94 95 Oxygen Delivery Method 05/28/23 17:18 05/28/23 17:21 Temperature 100.3 F H Pulse Rate Respiratory Rate Blood Pressure 104/59 L Pulse Oximetry Oxygen Delivery Method Medical Decision Making Lab Data Lab results reviewed: Yes I reviewed the patient's lab results. 05/28/23 16:47 05/28/23 16:47 Labs: Lab Results 05/28/23 05/28/23 Range/Units 16:30 16:47 WBC 5.1 (4.5-11.0) X10^3/uL RBC 4.16 L (4.5-5.9) X10^6/uL Hgb 13.5 (13.5-17.5) g/dL Hct 40.1 L (41-53) % MCV 96.4 (80-100) fL MCH 32.5 (26-34) PG MCHC 33.7 (30-36) % RDW 13.2 (11.6-14.8) % Plt Count 175 (150-400) X10^3/uL Neut % (Auto) 77.2 H (50-75) % Lymph % (Auto) 8.5 L (25-40) % [place] % (Auto) 13.4 (3-14) % Eos % (Auto) 0.1 L (2-4) % Baso % (Auto) 0.8 (0-2) % Neut # (Auto) 3900 (1273-4899) /uL Lymph # (Auto) 400 L (3979-1467) /uL [place] # (Auto) 700 (0-900) /uL Eos # (Auto) 0 (0-450) /uL Baso # (Auto) 0 (0-100) /uL PT 13.2 H (9.4-12.5) SECONDS INR 1.2 (0.9-1.3) APTT 28 (25.1-36.5) SECONDS Sodium 138 (137-145) mmol/L Potassium 4.8 (3.4-5.1) mmol/L Chloride 105 (98-107) mmol/L Carbon Dioxide 22 (22-32) mmol/L BUN 21 H (9-20) mg/dL Creatinine 1.87 H (0.66-1.25) mg/dL Estimated GFR 36 L (>60) mL/min BUN/Creatinine Ratio 11.2 (6-22) Glucose 105 (80-110) mg/dL Lactate 2.1 (0.7-2.1) mmol/L Calcium 9.5 (8.4-10.2) mg/dL Total Bilirubin 0.8 (0.2-1.3) mg/dL AST 43 (17-59) IU/L ALT 25 (<50) IU/L Alkaline Phosphatase 69 (38-126) U/L Total Protein 7.8 (6.3-8.2) g/dL Albumin 4.2 (3.5-5.0) g/dL Globulin 3.6 (1.7-4.1) g/dL Albumin/Globulin Ratio 1.2 (1.0-2.8) Lipase 121 (23-300) U/L Procalcitonin 0.14 (<0.5) ng/mL Ethyl Alcohol < 10 ( - 10) mg/dL SARS-CoV-2 (PCR) Positive H (Negative) Influenza A (RT-PCR) Flu a negative (NEGATIVE) Influenza B (RT-PCR) Flu b negative (NEGATIVE) RSV (PCR) Negative (Negative) Imaging Data Chest x-ray: Radiologist's Impression: PROCEDURE: XR CHEST 1V INDICATIONS: suspected sepsis TECHNIQUE: One view of the chest was acquired. COMPARISON: [facility], , XR CHEST 1V, 09/25/2022, 19:43. FINDINGS: Surgical changes and devices: None. Lungs and pleura: Lungs are clear. No pleural effusions or pneumothorax. Mediastinum: Mediastinal contours appear normal. Heart size is normal. Bones and chest wall: No suspicious bony lesions. Overlying soft tissues appear unremarkable. IMPRESSION: No acute cardiopulmonary abnormality is seen. CT scan - head: Radiologist's Impression: ROCEDURE: CT HEAD/BRAIN WO CON INDICATIONS: AMS TECHNIQUE: Noncontrast 4.5 mm thick angled axial sections acquired from the foramen magnum to the vertex, with coronal and sagittal reformats. For radiation dose reduction, the following was used: automated exposure control, adjustment of mA and/or kV according to patient size. COMPARISON: None. FINDINGS: Image quality: Diagnostic. CSF spaces: Basal cisterns are patent. No extra-axial fluid collections. The ventricles are symmetric in size and shape. Brain: No intracranial bleeds or masses. There is cerebral volume loss for age, with resultant ventricular and sulcal prominence. There are periventricular and deep white matter chronic small vessel ischemic changes. There is intracranial internal carotid artery atherosclerosis. Skull and face: Calvarium and visualized facial bones appear intact, without suspicious lesions. Sinuses: Visualized sinuses and mastoids are clear. IMPRESSION: No CT evidence of acute intracranial process. Age-appropriate cerebral cortical volume loss and chronic microvascular ischemic changes. CT - cervical spine: Radiologist's Impression: PROCEDURE: CT CERVICAL SPINE WO CON INDICATIONS: ams possible fall TECHNIQUE: Noncontrast 3 mm thick sections acquired from the skull base to the T4 level. Sagittal and coronal reformats were then constructed. For radiation dose reduction, the following was used: automated exposure control, adjustment of mA and/or kV according to patient size. COMPARISON: None. FINDINGS: Image quality: Excellent. Bones: The craniocervical junction is intact. Mild degenerative space loss and spurring at the atlantodental interval. No cervical vertebral body fractures or pathologic subluxation. Moderate degenerative disc height loss and some disc calcification from C3-3 through C6. Mild posterior endplate spur formation.. Visualized superior ribs are intact. Soft tissues: Prevertebral soft tissues are normal in thickness. No paravertebral hematomas. No apical pneumothoraces. IMPRESSION: No displaced fracture or traumatic subluxation. Multilevel disc and endplate degenerative change. ECG Data Attestation: I personally reviewed and interpreted this ECG as follows: Interpretation: Sinus rhythm Ventricular rate of 76 Sinus arrhythmia First-degree AV block GA interval [address] T wave changes MDM Narrative Medical decision making narrative: Febrile and tachycardic upon arrival. Has never been hypotensive. Is alert to person and place but does not know what year it is and is obviously confused about why he is here. This seems to be new per his who is at bedside. He does state that he feels somewhat better after the Tylenol and reduction of his fever. He is COVID positive but is not hypoxic. Chest x-ray is unremarkable. CT scan was were ordered because of the potential for a fall at home. He has not on blood thinners. He does not have leukocytosis. He has not had anything to eat or drink today because he is slept most of the day. Tachycardia maybe because of dehydration. I suspect that his altered mental status has because of his fever and his positive COVID. Urinalysis was pending at the time of admission however the there was no other source of infection. No antibiotics were administered because of the assumption that this is COVID which is a viral illness. Because he has not hypoxic will hold on remdesivir. Did discuss the case with Dr. Morocho hospitalist on-call who will admit. Discussed the need for admission with the patient and his . His expressed understanding and agreement. Discharge Plan Departure Patient Disposition: Admitted As Inpatient Clinical Impression: COVID-19, Altered mental status Admit Date/Time: 05/28/23 18:03 Admit Provider: Tony Morocho
[2023-05-28] MEDS: SODIUM CHLORIDE 0.9% 1,000 ML 1000 ML IV (16:48)
[2023-05-28] MEDS: ACETAMINOPHEN IV 1,000 MG/100 ML VIAL 400 MG IV (16:48)
[2023-05-28 16:56] LABS: Add Manual Diff / Slide Review NO; Basophils Absolute Auto 0 /uL (0-100); Basophils Percent Auto 0.8 % (0-2); Eosinophils Absolute Auto 0 /uL (0-450); Eosinophils Percent Auto 0.1 % (2-4); Hematocrit 40.1 % (41-53); Hemoglobin 13.5 g/dL (13.5-17.5); Lymphocytes Absolute Auto 400 /uL (1100-4500); Lymphocytes Percent Auto 8.5 % (25-40); Mean Corpuscular HGB Conc 33.7 % (30-36); Mean Corpuscular Hemoglobin 32.5 PG (26-34); Mean Corpuscular Volume 96.4 fL (80-100); Monocytes Absolute Auto 700 /uL (0-900); Monocytes Percent Auto 13.4 % (3-14); Neutrophils Absolute Auto 3900 /uL (1500-7000); Neutrophils Percent Auto 77.2 % (50-75); Platelet Count 175 X10^3/uL (150-400); Red Blood Cell Count 4.16 X10^6/uL (4.5-5.9); Red Cell Distribution Width 13.2 % (11.6-14.8); White Blood Cell Count 5.1 X10^3/uL (4.5-11.0)
[2023-05-28 17:04] LABS: INR 1.2 (0.9-1.3); Prothrombin Time 13.2 SECONDS (9.4-12.5)
[2023-05-28 17:07] LABS: PTT Partial Thromboplastin Tim 28 SECONDS (25.1-36.5)
[2023-05-28 17:09] LABS: Lactate (Lactic Acid) 2.1 mmol/L (0.7-2.1)
[2023-05-28 17:10] LABS: Ethanol (ETOH) < 10 mg/dL
[2023-05-28 17:11] LABS: Alanine Aminotransferase 25 IU/L (<50); Albumin 4.2 g/dL (3.5-5.0); Albumin Globulin Ratio 1.2 (1.0-2.8); Alkaline Phosphatase 69 U/L (38-126); Aspartate Aminotransferase 43 IU/L (17-59); BUN Creatinine Ratio 11.2 (6-22); Bilirubin Total 0.8 mg/dL (0.2-1.3); Blood Urea Nitrogen 21 mg/dL (9-20); Calcium 9.5 mg/dL (8.4-10.2); Carbon Dioxide 22 mmol/L (22-32); Chloride 105 mmol/L (98-107); Estimated Glomerular Filt Rate 36 mL/min (>60); Globulin 3.6 g/dL (1.7-4.1); Glucose 105 mg/dL (80-110); HEMOLYSIS 15 (0-50); Lipase 121 U/L (23-300); Potassium 4.8 mmol/L (3.4-5.1); Sodium 138 mmol/L (137-145); Total Protein 7.8 g/dL (6.3-8.2)
[2023-05-28 17:12] LABS: Influenza A - CEPHEID Flu A NEGATIVE (NEGATIVE); Influenza B - CEPHEID Flu B NEGATIVE (NEGATIVE); Respiratory Syncytial Virus Negative (Negative)
[2023-05-28 17:19] LABS: COVID-19 CEPHEID 4-PLEX PCR POSITIVE (Negative)
[2023-05-28 17:25] LABS: Procalcitonin 0.14 ng/mL (<0.5)
[2023-05-28] MEDS: SODIUM CHLORIDE 0.9% 1,000 ML 150 ML IV ×2 (17:35→19:43)
--- NOTE | 2023-05-28 17:59 | PM.HP.1 ---
History of Present Illness History of Present Illness Chief complaint: fall + covid Narrative: Bro Tubbs is an 82yo M with PMH of CKD stage 3, parkinson's disease, BPH, and GERD who presents with AMS and COVID positive. Per his who at bedside patient began acting altered last night and went to bed but slept in a recliner chair which is not his usual. He noted a sore throat and had a fever so she COVID tested him at home which was positive. He then slept most of the day today until she went to check on him and found him slumped off of a stool and altered. Normally he is AOx3. He was brought to the ED where his triage temp was 103F. He was able to say he was in the hospital, but did not know the year. COVID positive on PCR. During my assessment patient is more oriented and know the month and the year. Had received IV tylenol and fever improved as well as mental status. He says his throat is scratchy. He knows the president. Denies CP, abd pain, NV, or diarrhea. [facility] Medical History Nephrolithiasis BPH loc w/o ur obs/LUTS Male circumcision Renal disease Kidney stones Skin cancer Surgical History Vasectomy status Previous back surgery Hx of appendectomy Family History Father Diabetes mellitus Social History marital status: household members: spouse Smoking Status: Never smoker alcohol intake: current caffeine: Yes Meds Home Medications and Allergies Home Medications Medication Instructions Recorded Confirmed Type pantoprazole 40 mg tablet,delayed 40 mg PO DAILY #20 tabs 09/22/19 07/19/20 Rx release (Protonix) ascorbate calcium (vitamin C) 500 500 mg PO DAILY 10/06/19 05/28/23 History mg tablet cholecalciferol (vitamin D3) 10 10 mcg PO DAILY 10/06/19 07/19/20 History mcg (400 unit) capsule vitamin E 200 unit capsule 200 unit PO DAILY 10/06/19 07/19/20 History B-complex with vitamin C (Super B 1 tab PO DAILY 03/14/20 07/19/20 History Complex-Vitamin C tablet) aspirin 81 mg tablet,delayed 81 mg PO DAILY 03/14/20 07/19/20 History release (Adult Aspirin Regimen) cranberry concentrate-ascorbic cap PO 03/14/20 07/19/20 History acid 4,200 mg-20 mg capsule multivitamin 1 tab PO DAILY 03/14/20 07/19/20 History omega-3 fatty acids 1,000 mg 1,000 mg PO DAILY 03/14/20 07/19/20 History capsule prevagen PO 03/14/20 07/19/20 History turmeric root extract 1,053 mg 1,076 mg PO DAILY 03/14/20 07/19/20 History tablet vitamin E 1,150 unit/1.25 mL oral 1,150 unit PO DAILY 03/14/20 07/19/20 History liquid carbidopa 10 mg-levodopa 100 mg 1 tab PO TID 07/19/20 07/19/20 History tablet benzonatate 200 mg capsule 200 mg PO TID PRN cough #30 caps 09/23/21 05/28/23 Rx nirmatrelvir 150 mg-ritonavir 100 See Rx Instructions PO .COMPLEX 09/23/21 Rx mg tablets in a dose pack #20 tabs (Paxlovid) hydrocodone 5 mg-acetaminophen 325 1 tab PO Q6H PRN pain #14 tabs 04/03/23 Rx mg tablet hydrocodone 5 mg-acetaminophen 325 1 tab PO Q6H PRN pain #14 tabs 04/03/23 Rx mg tablet atorvastatin 20 mg tablet 20 mg PO DAILY 05/28/23 05/28/23 History mirtazapine 7.5 mg tablet 7.5 mg PO ONCE PM 05/28/23 05/28/23 History rivastigmine tartrate 3 mg capsule 3 mg PO DAILY 05/28/23 05/28/23 History Allergies Allergy/AdvReac Type Severity Reaction Status Date / Time Penicillins [PENICILLINS] Allergy Unknown Verified 05/28/23 16:23 Review of Systems Review of Systems Narrative: All other systems reviewed with the patient and are negative unless otherwise stated. Exam Vital Signs (past 8 hours): - 05/28/23 16:13 05/28/23 16:13 05/28/23 16:15 Temperature 103.0 F H Pulse Rate 76 107 H Respiratory Rate 11 L 16 Blood Pressure 129/60 129/60 Pulse Oximetry 98 97 Oxygen Delivery Method Room Air 05/28/23 16:30 05/28/23 16:59 05/28/23 16:59 Temperature Pulse Rate 77 73 Respiratory Rate 28 H 26 H Blood Pressure 114/56 L Pulse Oximetry 95 95 Oxygen Delivery Method 05/28/23 17:00 05/28/23 17:00 05/28/23 17:18 Temperature Pulse Rate 75 75 Respiratory Rate 25 H 24 Blood Pressure 127/59 L Pulse Oximetry 94 95 Oxygen Delivery Method 05/28/23 17:18 05/28/23 17:21 Temperature 100.3 F H Pulse Rate Respiratory Rate Blood Pressure 104/59 L Pulse Oximetry Oxygen Delivery Method Oxygen Delivery Method Room Air Narrative Exam Narrative: GEN: no acute distress, elderly man who is A/Ox3 HEENT: moist mucous membranes, PERRL NECK: trachea midline, no JVD CV: regular rate and rhythm, no murmurs PULM: clear bilaterally ABD: soft, nontender, nondistended, no organomegaly EXT: warm and well perfused with no edema NEURO: awake, alert, oriented, no focal deficits Objective Labs 05/29/23 06:35 05/29/23 06:35 Labs: Laboratory Results - last 24 hr 05/28/23 05/28/23 16:30 16:47 WBC 5.1 RBC 4.16 L Hgb 13.5 Hct 40.1 L MCV 96.4 MCH 32.5 MCHC 33.7 RDW 13.2 Plt Count 175 Neut % (Auto) 77.2 H Lymph % (Auto) 8.5 L [place] % (Auto) 13.4 Eos % (Auto) 0.1 L Baso % (Auto) 0.8 Neut # (Auto) 3900 Lymph # (Auto) 400 L [place] # (Auto) 700 Eos # (Auto) 0 Baso # (Auto) 0 PT 13.2 H INR 1.2 APTT 28 Sodium 138 Potassium 4.8 Chloride 105 Carbon Dioxide 22 BUN 21 H Creatinine 1.87 H Estimated GFR 36 L BUN/Creatinine Ratio 11.2 Glucose 105 Lactate 2.1 Calcium 9.5 Total Bilirubin 0.8 AST 43 ALT 25 Alkaline Phosphatase 69 Total Protein 7.8 Albumin 4.2 Globulin 3.6 Albumin/Globulin Ratio 1.2 Lipase 121 Procalcitonin 0.14 Ethyl Alcohol < 10 SARS-CoV-2 (PCR) Positive H Influenza A (RT-PCR) Flu a negative Influenza B (RT-PCR) Flu b negative RSV (PCR) Negative Assessment & Plan Assessment & Plan narrative: # acute metabolic encephalopathy, resolving -patient normally AOx3, but didn't know the year in the ED. Likely due to acute COVID and fevers. -CT head negative -low suspicion for meningitis as no meningeal signs, normal leukocytosis and procal -starting to improve with treatment of fever, patient now AOx3 # possible sepsis -febrile to 103F, tachypneic, AMS -f/up blood cultures -will hold on abx for now # COVID positive -PCR positive in ED, febrile up to 103F -patient not requiring supp O2 -supportive care # CKD stage 3 -Cr near baseline -gentle IVF -renally dose meds and avoid nephrotoxic agents # Parkinson's disease -continue rivastigmine and remeron # GERD -continue PPI # HLD -continue lipitor Code status is full code. DVT prophylaxis with heparin subq. Proxy is . I have reviewed home meds and used all available resources to reconcile the home meds. Case discussed with ED physician/APC and patient will be admitted to the hospitalist service for further workup and management. This patient will be admitted as observation and will require less than 2 midnights of hospital time to treat metabolic encephalopathy.
[2023-05-28 18:29] LABS: Reflexed Lactate in 2 Hours Y
[2023-05-28 18:45] LABS: Magnesium 1.9 mg/dL (1.6-2.3)
[2023-05-28] MEDS: ATORVASTATIN 20 MG TABLET PO (20:12)
[2023-05-28] MEDS: HYDROCODONE/ACET 5/325 TABLET 1 TAB PO (20:12)
[2023-05-28] MEDS: MIRTAZAPINE 15 MG TABLET 7.5 MG PO (20:12)
[2023-05-28] MEDS: HEPARIN 5,000 UNIT/ML VIAL 5000 UNIT SUBCUT (20:13)
[2023-05-28] MEDS: BENZONATATE 100 MG CAPSULE 200 MG PO (20:13)
[2023-05-28 20:27] LABS: Lactate 2HR (Lactic Acid Rflx) 1.2 mmol/L (0.7-2.1)
[2023-05-29] VITALS (11 sets, daily range): BP systolic 120–139; BP diastolic 51–69; PULSE 73–102; RESP 15–22; TEMP 37–38.8; O2SAT 93–95
[2023-05-29] MEDS: BENZONATATE 100 MG CAPSULE 200 MG PO (03:53)
[2023-05-29] MEDS: ACETAMINOPHEN 325 MG TABLET 975 MG PO ×3 (03:53→16:32)
--- NOTE | 2023-05-29 03:54 | PC.NURSE ---
Addendum entered by Paolo Chiang R.N. 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 Patient stated he didnt realized that he did. RN had reinforced with tape and coban. Catheter was intact. RN continued fluids in Left hand IV. RN reinforced with Coban and paper tape. Original Note: Nightshift Patient awoke, was disoriented and agitated. Demanding to go home. RN tried to redirect, Pt refused. RN contacted spouse via work phone and spouse was able to redirect patient. Patient has a fever of 101.3 Medicated per MAR.
[2023-05-29] MEDS: SODIUM CHLORIDE 0.9% 1,000 ML 150 ML IV (04:06)
[2023-05-29 06:49] LABS: Add Manual Diff / Slide Review NO; Basophils Absolute Auto 0 /uL (0-100); Basophils Percent Auto 0.6 % (0-2); Eosinophils Absolute Auto 0 /uL (0-450); Hematocrit 36.3 % (41-53); Hemoglobin 12.3 g/dL (13.5-17.5); Lymphocytes Absolute Auto 600 /uL (1100-4500); Mean Corpuscular Hemoglobin 32.5 PG (26-34); Mean Corpuscular Volume 95.7 fL (80-100); Monocytes Absolute Auto 600 /uL (0-900); Monocytes Percent Auto 12.3 % (3-14); Neutrophils Absolute Auto 3400 /uL (1500-7000); Neutrophils Percent Auto 74.1 % (50-75); Platelet Count 148 X10^3/uL (150-400); Red Blood Cell Count 3.79 X10^6/uL (4.5-5.9); Red Cell Distribution Width 13.5 % (11.6-14.8); White Blood Cell Count 4.6 X10^3/uL (4.5-11.0)
[2023-05-29 07:03] LABS: BUN Creatinine Ratio 13.7 (6-22); Blood Urea Nitrogen 23 mg/dL (9-20); Calcium 8.4 mg/dL (8.4-10.2); Carbon Dioxide 19 mmol/L (22-32); Chloride 109 mmol/L (98-107); Estimated Glomerular Filt Rate 41 mL/min (>60); Glucose 103 mg/dL (80-110); HEMOLYSIS < 15 (0-50); Potassium 4.4 mmol/L (3.4-5.1); Sodium 136 mmol/L (137-145)
[2023-05-29 07:21] LABS: Procalcitonin 0.36 ng/mL (<0.5)
[2023-05-29] MEDS: HEPARIN 5,000 UNIT/ML VIAL 5000 UNIT SUBCUT ×2 (09:35→21:57)
[2023-05-29] MEDS: PANTOPRAZOLE DR 40 MG TABLET PO (09:36)
[2023-05-29] MEDS: ASPIRIN EC 81 MG TABLET PO (09:36)
--- NOTE | 2023-05-29 10:04 | DI.RAD.S_ITS ---
PROCEDURE: XR CHEST 1V INDICATIONS: COVID, very wet cough TECHNIQUE: One view of the chest was acquired. COMPARISON: [facility], CR, XR CHEST 1V, 05/28/2023, 16:43. FINDINGS: Surgical changes and devices: None. Lungs and pleura: Lungs are clear. No pleural effusions or pneumothorax. Mediastinum: Mediastinal contours appear normal. Heart size is normal. Bones and chest wall: No suspicious bony lesions. Overlying soft tissues appear unremarkable. IMPRESSION: No acute cardiopulmonary abnormality is seen. Approved by: Avery Gonzales M.D. on 05/29/2023 at 10:54
--- NOTE | 2023-05-29 10:36 | CM.DANOTE ---
Addendum entered by ELISABETH Sandoval 05/30/23 10:52: ADD: Therapies recommending SNF. Spoke with spouse Cristiane who is agreeable to plan. Cristiane states no SNF preference. Explained that discharge to SNF will be dependent on 1. Finding a SNF that takes patient's [facility] 2. Finding a SNF that would admit with COVID+ or possibly after 10 days isolation 3. A secured authorization from [facility] Cristiane states understanding and appreciation. This OPEN SOURCE DEVELOPER will plan to begin SNF search Addendum entered by ELISABETH Sandoval 05/29/23 10:49: ADD: LEASING ASSOCIATE, OT and PT already ordered by Dr Morocho. Original Note: Initial DCP Assessment Note Pt is an 82 yo male, resident of [place], presents with confusion, fall, COVID+. PMH includes Parkinson's disease, currently not on medication for this. PCP: Yesenia Christine Payer: [facility] Reviewed chart, pt discussed in multidisciplinary rounds this morning. Patient still quite ill with active cough. Initial assessment completed with information available on the chart. Attempted contact with spouse Cristiane, had to LM. Patient appears to be below functional and cognitive baseline, as notes indicate patient is indp w/o use of AD and alert/oriented. CM team will plan to follow clinical course closely. Will plan to complete assessment of need with spouse. Therapies may be helpful for dispo recs once medically appropriate. ELISABETH James Discharge Planning/Care Management CM Discharge Assessment Start: 05/29/23 10:29 Freq: Status: Active Protocol: Document 05/29/23 10:30 CHINO (Rec: 05/29/23 10:36 CHINO [id number]) Discharge Planning Assessment Assigned Vocational Trainer ELISABETH Rosas DPOA/Assigned Designee Name Cristiane Tubbs, spouse Contact Information [phone] Advance Directives? Yes Advance Directives on File No History Provided By Significant Other,Medical Record Prior Living Arrangements House Household Members spouse Independent with ADL's Yes Is patient alert and oriented? Yes Barriers to Discharge Yes Comment Confusion, not at functional or cognitive baseline currently. Transportation Arrangement TBD Additional Comment TBD
[2023-05-29] MEDS: SODIUM CHLORIDE 0.9% 1,000 ML 75 ML IV (11:25)
--- NOTE | 2023-05-29 11:27 | PM.PN.1 ---
Subjective Subjective Interval history: Patient more confused today, with a wet cruddy cough. Had trouble swallowing pills so PACKING HOUSE SUPERVISOR consulted. CXR ordered to look for aspiration PNA. Exam Vital Signs (past 8 hours): - 05/29/23 03:53 05/29/23 04:00 05/29/23 04:25 Temperature 101.3 F H 101.8 F H 99.9 F H Pulse Rate 95 H Respiratory Rate 19 Blood Pressure 121/51 L Pulse Oximetry 95 Oxygen Flow Rate 0 05/29/23 08:00 05/29/23 09:36 Temperature 99.8 F H 99.7 F H Pulse Rate 97 H Respiratory Rate 20 Blood Pressure 126/54 L Pulse Oximetry 94 Oxygen Flow Rate 0 Oxygen Delivery Method Room Air Oxygen Flow Rate 0 Narrative Exam Narrative: GEN: ill-appearing, elderly man who is A/Ox2 with wet gurgly cough HEENT: moist mucous membranes, PERRL NECK: trachea midline, no JVD CV: regular rate and rhythm, no murmurs PULM: coarse breath sounds ABD: soft, nontender, nondistended, no organomegaly EXT: warm and well perfused with no edema NEURO: awake, alert, partially oriented, no focal deficits Objective Labs 05/29/23 06:35 05/29/23 06:35 Labs: Laboratory Results - last 24 hr 05/28/23 05/28/23 05/28/23 16:30 16:47 20:10 WBC 5.1 RBC 4.16 L Hgb 13.5 Hct 40.1 L MCV 96.4 MCH 32.5 MCHC 33.7 RDW 13.2 Plt Count 175 Neut % (Auto) 77.2 H Lymph % (Auto) 8.5 L [place] % (Auto) 13.4 Eos % (Auto) 0.1 L Baso % (Auto) 0.8 Neut # (Auto) 3900 Lymph # (Auto) 400 L [place] # (Auto) 700 Eos # (Auto) 0 Baso # (Auto) 0 PT 13.2 H INR 1.2 APTT 28 Sodium 138 Potassium 4.8 Chloride 105 Carbon Dioxide 22 BUN 21 H Creatinine 1.87 H Estimated GFR 36 L BUN/Creatinine Ratio 11.2 Glucose 105 Lactate 2.1 1.2 Calcium 9.5 Magnesium 1.9 Total Bilirubin 0.8 AST 43 ALT 25 Alkaline Phosphatase 69 Total Protein 7.8 Albumin 4.2 Globulin 3.6 Albumin/Globulin Ratio 1.2 Lipase 121 Procalcitonin 0.14 Ethyl Alcohol < 10 SARS-CoV-2 (PCR) Positive H Influenza A (RT-PCR) Flu a negative Influenza B (RT-PCR) Flu b negative RSV (PCR) Negative 05/29/23 06:35 WBC 4.6 RBC 3.79 L Hgb 12.3 L Hct 36.3 L MCV 95.7 MCH 32.5 MCHC 34.0 RDW 13.5 Plt Count 148 L Neut % (Auto) 74.1 Lymph % (Auto) 13.0 L [place] % (Auto) 12.3 Eos % (Auto) 0.0 L Baso % (Auto) 0.6 Neut # (Auto) 3400 Lymph # (Auto) 600 L [place] # (Auto) 600 Eos # (Auto) 0 Baso # (Auto) 0 PT INR APTT Sodium 136 L Potassium 4.4 Chloride 109 H Carbon Dioxide 19 L BUN 23 H Creatinine 1.68 H Estimated GFR 41 L BUN/Creatinine Ratio 13.7 Glucose 103 Lactate Calcium 8.4 Magnesium Total Bilirubin AST ALT Alkaline Phosphatase Total Protein Albumin Globulin Albumin/Globulin Ratio Lipase Procalcitonin 0.36 Ethyl Alcohol SARS-CoV-2 (PCR) Influenza A (RT-PCR) Influenza B (RT-PCR) RSV (PCR) [facility] Medical History Nephrolithiasis BPH loc w/o ur obs/LUTS Male circumcision Renal disease Kidney stones Skin cancer Surgical History Vasectomy status Previous back surgery Hx of appendectomy Family History Father Diabetes mellitus Social History marital status: household members: spouse Smoking Status: Never smoker alcohol intake: current caffeine: Yes Assessment & Plan Assessment & Plan narrative: # possible aspiration with pneumonia -HD2 developed coarse lung sounds with worsening wet cough, had trouble swallowing pills -PACKING HOUSE SUPERVISOR consulted -repeat CXR ordered to look for pneumonia, 05/28 CXR was normal -procal slightly up today to 0.37 -empiric rocephin and azithro due to patient high risk for developing pneumonia # acute metabolic encephalopathy -patient normally AOx3, but didn't know the year in the ED. Likely due to acute COVID and fevers. -CT head negative -low suspicion for meningitis as no meningeal signs, normal leukocytosis -starting to improve with treatment of fever on evening of 05/28 -worse again on 05/29 and patient now AOx1-2 # possible sepsis -febrile to 103F, tachypneic, AMS -f/up blood cultures -abx as above # COVID positive -PCR positive in ED, febrile up to 103F -patient not requiring supp O2 -supportive care # CKD stage 3 -Cr near baseline -gentle IVF -renally dose meds and avoid nephrotoxic agents -check UA # Parkinson's disease -continue rivastigmine and remeron -PT/OT eval # GERD -continue PPI # HLD -continue lipitor Code status is full code. DVT prophylaxis with heparin subq. Proxy is . I have reviewed home meds and used all available resources to reconcile the home meds. Dispo: Pending improvement in encephalopathy, weakness and swallow. 1-2 days. Quality VTE Deep Vein Thrombosis/Pulmonary Embolism Present on Admission: No
[2023-05-29 11:35] LABS: Appearance Urine UA CLEAR; Bilirubin Urine UA NEGATIVE (NEGATIVE); Color Urine UA YELLOW; Glucose Urine UA NEGATIVE (Negative); Ketones Urine UA NEGATIVE (NEGATIVE); Leukocyte Esterase Urine UA NEGATIVE (NEGATIVE); Nitrite Urine UA NEGATIVE (Negative); Occult Blood Urine UA 2+ (Negative); Protein Urine UA TRACE (Negative); Urobilinogen Urine UA 0.2 E.U./dL (0.2); pH Urine UA 5.5 (4.5-8.0)
[2023-05-29 11:45] LABS: RBC Urine 5-10/HPF (0-5/HPF); Urine Volume 10mL (spun)
[2023-05-29 11:46] LABS: Bacteria Urine None Seen; Culture Indicated Urine Cult Not Indicated; Squamous Epithelial Cell Urine None Seen (0-5/HPF); WBC Urine None Seen (0-5/HPF)
--- NOTE | 2023-05-29 12:36 | DI.RAD.S_ITS ---
PROCEDURE: FL BARIUM SWALLOW W SPEECH INDICATIONS: possible aspiration COMPARISON: TECHNIQUE: Examination was conducted in conjunction with speech pathology per standard protocol. In the lateral projection, filming was performed of the patient swallowing. AP projection filming may also be performed with patient swallowing. COMPARISON: [facility], CR, XR CHEST 1V, 05/29/2023, 10:22. FINDINGS: Function: The oral preparatory phase appears normal, with proper containment. There is laryngotracheal penetration or trace aspiration with thin liquid consistency. No pathologic vallecular pooling. Morphology: No cricopharyngeal bar is identified. No cervical esophageal webs. No Zenker's diverticulum. No strictures. IMPRESSION: 1. Laryngeal penetration and trace aspiration with liquid consistency. Please see separate speech pathologist's report for detail. Dictated by: Chuck Mancilla M.D. on 06/01/2023 at 9:24 Approved by: Chuck Mancilla M.D. on 06/01/2023 at 9:26
--- NOTE | 2023-05-29 14:25 | PT.IIE ---
Current Diagnoses Other specified sepsis (05/28/23) Surgical History (Last Reviewed 04/03/23 @ 17:39 by Edita Garcia DO) Hx of appendectomy Previous back surgery Vasectomy status Medical History (Last Reviewed 05/28/23 @ 16:44 by Pablo Roberts DO) BPH loc w/o ur obs/LUTS Kidney stones Male circumcision Nephrolithiasis Renal disease Skin cancer Physical Therapy Inpatient Evaluation/Re-Eval M1 PT/OT-IP Prior Functional Status Start: 05/29/23 15:41 Freq: NEEDED Status: Active Protocol: Document 05/29/23 14:25 AB (Rec: 05/29/23 15:59 AB [id number]) Medical Review Prior Functional Status Medical History Reviewed Yes Communication able to make needs known but with confusion and soft speech Mobility and Gait obtained PLOF and home set up from spouse and pt: spouse stated that pt was independent with all mobilities and ambulation without AD Social History Household Members spouse Living Arrangements House Number of Floors (Floors) Two Floors Number of Stairs To Enter/Railing? pt stays on main level of the house 1 step to enter the house Home Environment High Toilet,Walk in Shower, Built-In Shower Seat Home Equipment Hand Held Shower Additional Social History Comment pt's son will be staying for a couple of days to assist pt pt has a hurrycane at home M2 PT-IP Current Condition Start: 05/29/23 15:41 Freq: NEEDED Status: Active Protocol: Document 05/29/23 14:25 AB (Rec: 05/29/23 15:59 AB [id number]) Physical Therapy Current Condition Current Condition Evaluation Date 05/29/23 Treatment Diagnosis Covid +; AMS; PD; difficulty in walking Onset Date 05/28/23 M3 PT-IP Subjective Start: 05/29/23 15:41 Freq: NEEDED Status: Active Protocol: Document 05/29/23 14:25 AB (Rec: 05/29/23 15:59 AB [id number]) Subjective Physical Therapy Visit Type Type Initial Evaluation Visit Start Time 14:25 Visit Stop Time 15:20 Number of ACCOUNT LEADER Visits 55 Physical Therapy Visit Comments Patient Comments agreeable to do PT Therapy Pain Assessment Pain Present Pain Present Denied Pain M4 PT-IP Mobility and Gait Start: 05/29/23 15:41 Freq: NEEDED Status: Active Protocol: Document 05/29/23 14:25 AB (Rec: 05/29/23 15:59 AB [id number]) PT-Bed Mobility Assessment Supine to Sit Supine to Sit Standby Assistance,Head of Bed Elevated,Bedrails PT-Transfer Assessment Sit to and From Stand Sit to and from Stand Maximum Assistance,1 Person Assistance,2 Person Assistance ,Use of Upper Extremities Equipment Transfer Assistive Device Gait Belt,Front Wheeled Walker Orthotic/Prosthetic Devices or Brace: No Transfers Transfer Destination Chair Transfer Technique ambulated Transfer Ability Level of Assist Maximum Assistance,1 Person Assistance,Use of Upper Extremities Comments Mobility Comments pt supine in bed and agreeable to do PT. spouse in room with pt. obtained PLOF and home set up. BP in supine: 119/66. O2 sat at RA 89-92%. pt completed supine to sit SBA. able to sit on EOB CGA with slight posterior trunk lean. c/o slight dizziness. BP checked: 98/66. pt sat for ~ 2 min to rest. BP checked again: 123/57. instructed pt to scoot forward but with difficutly motor planning and slides B feet forward on the floor instead of moving trunk forward. educated pt on scooting and sit<>stand techniques. completed sit to stand max A x 2 and max cues. required assist with positioning trunk forward and for steadiness. pt presents with increase posterior trunk lean with LOB and increase LE pushing against bed to assist with getting up. cued pt for standing upright and use of FWW for support in standing. instructed pt to sit back down . pt rested. instructed to get up again. completed sit to stand max Ax 1-2 and max cues. continues to have increase posterior trunk lean. ambulated ~ 8 ft in room using FWW max A and max cues. (+) tremors noted and spouse stated that tremors is more compared to prior to admission . pt sat on the chair. O2 sat : 88% but increased to 90-91% in ~ 15 sec. BP: 130/55. positioned pt on the chair. informed pt and family regarding pt's mobility and needing 17/11 assist vs SNF rehab. family understood. Left pt with OT. Gait Assessment Gait Gait Assistance Required: Maximum Assistance Distance (Feet) 8 Able to Maintain Weight Bearing Status Yes During Gait Assistive Devices Assistive Device Gait Belt,Front Wheeled Walker Orthotic/Prosthetic Devices or Brace: No Gait Deviations General Gait Pattern Ataxic,Decreased Stride Length ,Decreased Feet Clearance,Step -to Gait Factors Limiting Gait Function Factors Limiting Gait Function Decreased Activity Tolerance, Decreased Strength,Difficulty Following Directions, Incoordination,Poor Balance, Poor Safety Awareness, Respiratory Distress PT-Balance Assessment Sitting Balance and Reactions Static Sitting Balance Ability Fair Dynamic Sitting Balance Ability Poor Standing Balance and Reactions Static Standing Balance Ability Poor Dynamic Standing Balance Ability Poor Device Used FWW M5 PT-IP Objective Assessments Start: 05/29/23 15:41 Freq: NEEDED Status: Active Protocol: Document 05/29/23 14:25 AB (Rec: 05/29/23 15:59 AB [id number]) Orientation Orientation/Cognition Level of Alertness Confusional State Orientation Name Safety Awareness Decreased Safety Awareness Memory Description Short Term Impaired Gross Range of Motion Lower Extremity ROM Assessment Within Functional Limits Strength Lower Extremity Strength Assessment Within Functional Limits Muscle Tone Comments Muscle Tone Comments (+) trunk/UE tremors M6 PT-IP Treatment Start: 05/29/23 15:41 Freq: NEEDED Status: Active Protocol: Document 05/29/23 14:25 AB (Rec: 05/29/23 15:59 AB [id number]) Physical Therapy Treatment Education Education Provided Safety M7 PT-IP Assessment and Plan Start: 05/29/23 15:41 Freq: NEEDED Status: Active Protocol: Document 05/29/23 14:25 AB (Rec: 05/29/23 15:59 AB [id number]) PT Summary Assessment and Plan Potential Rehabilitation Potential Fair Status of Condition at Evaluation Evolving Summary Impairments Pain,ROM,Strength,Balance, Coordination,Sensation,Tone, Cognition,Bed Mobility, Transfers,Gait,Activity Tolerance Assessment Summary Pt is an 82 y/o M who presented to the ED for AMS and is Covid +. pt admitted in the hospital for acute metabolic encephalopathy and covid +. pt also has dx of PD affecting mobility. pt requiring max A x 1-2 with mobility using FWW and presents with unsteady gait. pt will require 24/7 assist at this time and will benefit from SNF rehab. will continue to assess progress. Goals Bed Mobility Goal Independent Transfer Goal Contact Guard Assistance,Front Wheeled Walker Gait Goal Contact Guard Assistance,Front Wheel Walker Gait Distance 100 Other Goals improve transfers and ambulation using LRAD ~ 200 ft SBA up/down 1 step SBA Days to Meet Goals 10 Frequency of Treatment Frequency Of Treatment Once a Day Treatment Plan Physical Therapy Treatment Plan Bed Mobility Training,Transfer Training,Gait Training, Therapeutic Exercise,Balance Retraining,Post Op Education, Discharge Planning,Hot or Cold Pack,Neuromuscular Re-ed, Coordination Retraining,Manual Therapy Precautions Other Precautions Covid droplet precautions; falls Recommendations To Nursing Amount of Assist Needed 2 Person Assist Discharge Recommendations PT Discharge Recommendations Home with 17/11 Assist Available,Home Health,SNF Rehab,Home vs SNF Equipment Needed for Home Before FWW Discharge Transportation Needs at Discharge Private Vehicle
--- NOTE | 2023-05-29 14:30 | ST.SWALLOW ---
Visit Care Team Role Provider Type Yesenia Christine PA-C Family Provider Physician Ophthalmology Assistant Primary Care Provider Specialty: Medical Address: [place], [address] Email: [email or web address] Pablo Roberts DO Emergency Provider Physician Referring Provider Specialty: Emergency Medicine Address: [address] [place] [address], [id number] Email: [email or web address] DO Admit Provider Physician Attending Provider Specialty: Internal Medicine Address: [address] [place] [address], [id number] Email: [email or web address] Modified Barium Swallow Study ENTRY LEVEL ELECTRICAL ENGINEER Modified Barium Swallow Study Start: 05/29/23 12:38 Freq: Status: Active Protocol: Document 05/29/23 13:43 CG (Rec: 05/29/23 13:45 CG [id number]) Modified Barium Swallow Study Total Time Visit Start Time 13:00 Visit Stop Time 13:25 Total Visit Minutes 25 Setting Setting Outpatient Care Patient Information Identification Type Name,Date of Patient History Bro Tubbs is an 82yo M with PMH of CKD stage 3, parkinson 's disease, BPH, and GERD who presents with AMS and COVID positive. Per his who at bedside patient began acting altered on night of 05/27/23 and went to bed but slept in a recliner chair which is not his usual. He noted a sore throat and had a fever so she COVID tested him at home which was positive. He then slept most of the day today until she went to check on him and found him slumped off of a stool and altered. Normally he is AOx3. He was brought to the ED where his triage temp was 103F. He was able to say he was in the hospital, but did not know the year. COVID positive on PCR. Pt had received IV tylenol and fever improved as well as mental status. He says his throat is scratchy. He knows the president. Denies CP, abd pain, NV, or diarrhea. A chest x-ray from yesterday, 2/Repeat chest X-ray from this morning is clear. Subjective Observations Pt was seated in the fluoroscopy chair with directions and proceedures described for him. He indicated he understood and agreed to procede. Patient Positioning Position View Lat-A/P Imaging Lateral View Textures Administered Trials Presented Thin Liquid via Spoon (IDDSI 0 ),Mildly Thick Liquid via Spoon (IDDSI 2),Extremely Thick Liquid via Spoon (IDDSI 4),Regular (IDDSI 7) Barium Tablet No The IDDSI Framework Protocol: IDDSI.1 Oral Impairment Source: The Modified Barium Swallow Impairment Profile (MBSImP??) Lip Closure No labial escape Tongue Control During Bolus Hold Posterior escape of greater than half of bolus Bolus Preparation/Mastication Timely & efficient chewing & mashing Bolus Transport/Lingual Motion Brisk tongue motion Oral Residue Residue collection on oral structures Initiation of Pharyngeal Swallow Bolus head at pyriforms Additional Oral Impairment Observations Summary of oral phase findings : -Poor bolus hold, with premature spillage to the pyriforms prior to onset of pharyngeal swallow Pharyngeal Impairment Source: The Modified Barium Swallow Impairment Profile (MBSImP??) Laryngeal Elevation Part.sup.move.thyroid cart/ part.approx.arytenoids to epiglot.petiole Anterior Hyoid Excursion Partial anterior movement Epiglottic Movement Partial inversion Laryngeal Vestibular Closure Incomplete; narrow column air/ contrast in laryngeal vestibule Pharyngoesophageal Segment Opening Minimal distension/minimal duration; marked obstruction of flow Tongue Base Retraction Narrow column of contrast/air betwn tongue base & post. pharyngeal wall Pharyngeal Residue Collection of residue within/ on pharyngeal structures Additional Pharyngeal Impairment Summary of pharyngeal findings Observations : -Pt's UES is markedly obstructed. During trials of liquid, reduced pharyngeal pressures contribute to reduced UES opening, which results in pharyngeal residue superior to the UES which is then aspirated along the posterior surface of the laryngeal vestibule. -Airway closure and protection is limited. Air and contrast are visible between the arytenoids and epiglottic petiole throughout the swallow . -Pt presents with elizabeth, silent aspiration on thin liquid. Liquids are observed to flow both along the anterior and posterior surfaces of the laryngeal vestibule, where they then pool on the vocal folds and infiltrate the airway. Pt does not present with an immediate cough to clear aspirated material. A cued cough did not fully clear aspirated material. -Chin tuck was trialed with nectar liquids but unable to obtain a clear view of efficacy. Pt appeared to aspirate residue from nectar liquids. -Unclear whether pt aspirated pudding consistency or whether it was residual material from previous swallow that was being aspirated. -Regular solids did not appear to be aspirated. Increased pharyngeal pressure from heavier bolus appeared to increase UES opening and decrease pharyngeal residue. A/P View The IDDSI Framework Protocol: IDDSI.1 A/P View Observations Additional A-P Observations A-P view was not completed due to concerns for pt safety with further trials. Clinical Impressions Rehabilitation Potential Fair Patient Appropriate for Therapy Yes: Continue therapy as indicated Recommendations Diet Diet Order Regular (IDDSI 7) Medication Recommendation Not Recommended by Mouth Aspiration Precautions Recommended Precautions Small Bites/Sips Treatment Plan Therapy Recommendations Inpatient Speech Therapy Recommended Referrals GI Consult,ENT Consult Short Term Goals 1. Pt will tolerate regular solids without overt s/sx aspiration/penetration in order to meet nutrition needs. 2. Pt will complete repeat MBSS to determine safest and least restrictive level of intake as overall health status progresses. 3. Pt will demonstrate understanding of super- supraglottic swallow strategy to increase airway closure. Quality Assurance Supervisor Final Goals Pt will tolerate least restrictive diet in order to meet nutrition/hydration needs . Additional Recommendations/Comments ENTRY LEVEL ELECTRICAL ENGINEER recommends the followin. Ortiz Free Water protocol with ice chips only between meals. 2. Regular solids in SMALL bites, one at a time. NO sauces, fruits with juices, or mixed consistencies. Pt must avoid all liquids, even thickened, at this time. 3. Meds not recommended PO as it was unclear whether pt aspirated pudding thick liquid during MBSS (unable to determine whether aspirated material was new bolus or the result of residue from previous swallow). 4. Recommend training pt in super-supraglottic swallow strategy. 5. Repeat MBSS before clearing pt for unrestricted liquids. 6. Continue to monitor with Chest X-Rays to ensure solids are not being aspirated.
--- NOTE | 2023-05-29 14:36 | ST.IPCSEOM ---
Visit Care Team Role Provider Type Yesenia Christine PA-C Family Provider Physician Sole Molding Machine Operator Primary Care Provider Specialty: Medical Address: [place], [address] Email: [email or web address] Pablo Roberts DO Emergency Provider Physician Referring Provider Specialty: Emergency Medicine Address: [address] [place] [address], [id number] Email: [email or web address] DO Admit Provider Physician Attending Provider Specialty: Internal Medicine Address: [address] [place] [address], [id number] Email: [email or web address] Diagnoses Other specified sepsis (05/28/23) Past Medical History (Last Reviewed 05/28/23 @ 16:44 by Pablo Roberts DO) BPH loc w/o ur obs/LUTS (Medical) Kidney stones (Medical) Male circumcision (Medical) Nephrolithiasis (Medical) Renal disease (Medical) Skin cancer (Medical) Speech-Language Pathology Swallow Evaluation INTERNET MARKETING ANALYST Clinical Swallow Evaluation Start: 05/29/23 12:38 Freq: Status: Active Protocol: Document 05/29/23 12:42 CG (Rec: 05/29/23 12:46 CG [id number]) Clinical Swallow Evaluation Session Time Visit Start Time 11:30 Visit Stop Time 12:30 Total Visit Minutes 60 Visit Information Visit Number 1 Setting Assessment Location Acute Care Visit Type Note Type Initial evaluation Next Note Type Next Note Type Treatment Note Patient Information Identification Type Name History Bro Tubbs is an 82yo M with PMH of CKD stage 3, parkinson 's disease, BPH, and GERD who presents with AMS and COVID positive. Per his who at bedside patient began acting altered on night of 05/27/23 and went to bed but slept in a recliner chair which is not his usual. He noted a sore throat and had a fever so she COVID tested him at home which was positive. He then slept most of the day today until she went to check on him and found him slumped off of a stool and altered. Normally he is AOx3. He was brought to the ED where his triage temp was 103F. He was able to say he was in the hospital, but did not know the year. COVID positive on PCR. Pt had received IV tylenol and fever improved as well as mental status. He says his throat is scratchy. He knows the president. Denies CP, abd pain, NV, or diarrhea. A chest x-ray from yesterday, 05/28/23 was unremarkable. Repeat chest X-ray from this morning is also unremarkable. He has been working with Jeannie Estrada, WILLIAMS, on pharyngeal strengthening exercises since last year when he had an MBSS showing pharyngeal weakness. 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 Subjective Observations Pt is seated upright in bed upon ST entry to room with present. He is awake, alert. Oriented to situation, year, month, but not city. Able to follow one-step directions; some confusion with two-step directions. Pt presents with wet cough at baseline. Reported by Patient/Caregiver Other Symptoms Choking,Difficulty swallowing liquids Comment Pt has ongoing cough since Covid, worsened when eating/ drinking. Current Diet NPO Baseline Feeding Method Independent in self-feeding The IDDSI Framework Protocol: IDDSI.1 Objective Assessment Mental Status Alert,Responsive,Confused Oral Integrity WFL Dentition Within normal limits Pucker Within normal limits Alternating Pucker/Lip Retraction Within normal limits Tongue Function Within normal limits Observations of Tongue at Rest Involuntary movement(s) Tongue Protrusion Within normal limits Tongue Lateralization Within normal limits Comment OME was unremarkable aside from lingual fasiculations, likely related to pt's PD diagnosis. Food and Liquid Trials Position During Assessment Upright (90 degrees) Liquids Trialed Thin (IDDSI 0),Mildly Thick ( IDDSI 2) Solid Trials Purred (IDDSI 4),Minced & Moist (IDDSI 5),Regular (IDDSI 7) Administration Type Tea spoon,Cup single sip,Cup consecutive sips,Straw Oral Impairment Within functional limits Pharyngeal Impairment Moderately impaired Pharyngeal Phase Comments Pt presents with delayed, wet cough on trials thin via teaspoon, thin consecutive sip , nectar thick via teaspoon, and pudding. Trials of kristofer cracker resulted in no overt s/sx aspiration. Based on symptoms, unable to determine whether pt's cough is a result of aspiration or of underlying Covid symptoms. MBSS is warranted. Strategies Attempted Chin tuck [place] Swallow Protocol Yes Results Failed [place] Swallow Protocol due to delayed cough after swallow. The IDDSI Framework Protocol: IDDSI.1 Findings Swallowing Function Dysphagia unspecified Contributing Factors to Swallow Reduced oral strength/ Impairment coordination/sensation, Impaired airway protection, Excessive pharyngeal residue Prognosis Fair Impact on Safety and Functioning Risk for aspiration,Risk for inadequate nutrition/hydration Recommendations Instrumental Assessment Yes Recommended Solids Regular (IDDSI 7) Other Recommendations Ortiz free water protocol. MBSS warranted. Safety Precautions/Swallowing 1 to 1 close supervision Recommendations Medication Recommendations Crushed in Carrier Discharge Recommendations retirement facility Education Patient/Caregiver Education Described results of evaluation,Patient expressed understanding of evaluation Goals Short-term Goals 1. Pt will complete MBSS for objective evaluation of swallow function. Long-term Goals Pt will tolerate least restrictive diet in order to meet his nutrition/hydration needs.
[2023-05-29] MEDS: cefTRIAXone 1,000 MG in SODIUM CHLORIDE 0.9% 100 ML 200 MG IV (14:49)
--- NOTE | 2023-05-29 15:34 | OT.IP.EVAL ---
Current Diagnoses Other specified sepsis (05/28/23) Past Medical History (Last Reviewed 05/28/23 @ 16:44 by Pablo Roberts DO) BPH loc w/o ur obs/LUTS Kidney stones Male circumcision Nephrolithiasis Renal disease Skin cancer Surgical History (Last Reviewed 04/03/23 @ 17:39 by Edita Garcia DO) Hx of appendectomy Previous back surgery Vasectomy status Occupational Therapy Inpatient Evaluation/Re-Eval M1 PT/OT-IP Prior Functional Status Start: 05/29/23 16:21 Freq: NEEDED Status: Active Protocol: Document 05/29/23 16:22 [facility] (Rec: 05/29/23 16:36 [facility] [id number]) Medical Review Prior Functional Status Medical History Reviewed Yes Communication able to make needs known but with confusion and soft speech Mobility and Gait obtained PLOF and home set up from spouse and pt: spouse stated that pt was independent with all mobilities and ambulation without AD Activities of Daily Living and IADL's Prior pt states was completely independent with all ADL needs . Social History Household Members spouse Living Arrangements House Number of Floors (Floors) Two Floors Number of Stairs To Enter/Railing? pt stays on main level of the house 1 step to enter the house Home Environment High Toilet,Walk in Shower, Built-In Shower Seat Home Equipment Hand Held Shower Additional Social History Comment pt's son will be staying for a couple of days to assist pt pt has a hurrycane at home M2 OT-IP Current Condition Start: 05/29/23 16:21 Freq: Status: Active Protocol: Document 05/29/23 16:22 [facility] (Rec: 05/29/23 16:36 [facility] [id number]) Occupational Therapy Current Condition Current Condition Evaluation Date 05/29/23 Treatment Diagnosis COVID+, altered mental status, decreased mobility Diagnosis Onset Date 05/28/23 M3 OT- IP Subjective and Pain Start: 05/29/23 16:21 Freq: Status: Active Protocol: Document 05/29/23 16:22 [facility] (Rec: 05/29/23 16:36 [facility] [id number]) OT- Subjective Occupational Therapy Visit Type Type Initial Evaluation Visit Start Time 14:40 Visit Stop Time 15:34 Occupational Therapy Visit Comments Patient Comments Pt in the bed when OT came in for OT eval. Pt's family in the room in addition to PT. Patient/Caregiver Goals TO get better. OT Pain Assessment Pain When Pain Assessed At Rest Pain Present Pain Present Denied Pain M4 OT- IP ADL's Start: 05/29/23 16:21 Freq: Status: Active Protocol: Document 05/29/23 16:22 [facility] (Rec: 05/29/23 16:36 [facility] [id number]) OT [id number] Comments OT Self-Feeding Comments Not at meal time. OT ADL-Grooming Comments OT Grooming Comments Not performed. OT ADL-Oral Care Comments Oral Care Comments Not performed. OT ADL-Dressing General Eval Lower Body Dressing Ability Maximum Assistance Comments OT Dressing Comments Pt needing assist to help marcial socks and brief on at this time due to decreased balance and ability to follow through with commands. OT ADL-Toileting General Evaluation Toileting Ability Total Assistance Comments OT Toileting Comments Pt use of external catheter and also use of brief at this time. OT ADL-Bathing Comments OT Bathing Comments Not performed. M5 OT- IP IADL's Start: 05/29/23 16:21 Freq: Status: Active Protocol: Document 05/29/23 16:22 [facility] (Rec: 05/29/23 16:36 [facility] [id number]) OT-Instrumental Activities of Daily Living Deficits IADL Deficits Identified Deficits Home Safety Awareness Awareness of Need for Assistance at Home Decreased Awareness Ability to Problem Solve Emergency Unable to Problem Solve Situations Home Safety Comments Pt a bit confused at this time . Medication Management Medication Management Comments Pt will require assist at this time. Money Management Money Management Comments Pt will require assist. Meal Preparation Meal Preparation Comments Pt will require assist. Assembly Line Machine Operator Assembly Line Machine Operator Comments Pt will require assist. M6 OT- IP Functional Cognition Start: 05/29/23 16:21 Freq: Status: Active Protocol: Document 05/29/23 16:22 [facility] (Rec: 05/29/23 16:36 [facility] [id number]) Cognitive Factors Limiting Selfcare Function Cognitive Ability Level of Alertness Alert,Confusional State Patient Orientation Name Attention Span Ability Capable of Focused Attention, Unable to Sustain Attention Ability to Follow Commands Able to Follow One Step Commands with Increased Time, Able to Follow One Step Commands with Repetition Cognitive Comments Cognitive Assessment Comments Pt needing step by step commands to follow for routine ADl at this time and safety awareness for posture and hand placement when coming to stand. Pt not able to read the clock properly at this time. OT- Vision and Hearing OT- Vision Assessment Visual Acuity Glasses All The Time Vision Assessment Comments Pt able to see the clock but unable to states the proper time at this time. M7 OT- IP Mobility and Balance Start: 05/29/23 16:21 Freq: Status: Active Protocol: Document 05/29/23 16:22 [facility] (Rec: 05/29/23 16:36 [facility] [id number]) OT- Bed Mobility Assessment Supine to Sit Supine to Sit Assist Contact Guard Assistance OT-Transfer Assessment Sit to and From Stand Sit to and from Stand Maximum Assistance,1 Person Assistance Transfers Transfer Ability Maximum Assistance,1-2 Person Assistance Technique Transfer Destination Bed,Chair Devices Transfer Assistive Devices Gait Belt,Front Wheeled Walker Comments Mobility Comments Pt heavily uses the back on his legs to come to stand from the bed. Per pt's has slid out of the bed at home. MAX AX 1 to stand and has heavy posterior lean to the FWW. therapist having to block his feet from sliding forwards when coming to stand. OT- Balance Assessment Sitting Balance and Reactions Static Sitting Balance Ability Fair Dynamic Sitting Balance Ability Poor Standing Balance and Reactions Static Standing Balance Ability Poor Dynamic Standing Balance Ability Poor M8 OT- IP Objective Assessments Start: 05/29/23 16:21 Freq: Status: Active Protocol: Document 05/29/23 16:22 [facility] (Rec: 05/29/23 16:36 [facility] [id number]) OT Gross Range of Motion Upper Extremity Range of Motion ROM Impairments Grossly WFL OT Strength Upper Extremity Strength Assessment Within Functional Limits OT- Coordination Assessment Comments Coordination Comments Pt has tremors in his hands. M9 OT- IP Assessment and Plan Start: 05/29/23 16:21 Freq: Status: Active Protocol: Document 05/29/23 16:22 [facility] (Rec: 05/29/23 16:36 [facility] [id number]) OT Summary Assessment and Plan Potential Rehabilitation Potential Good Analytic Complexity at Evaluation Moderate Summary OT Impairments Strength,Balance,Coordination, Functional Cognition, Functional Mobility,Self- Feeding,Grooming,Dressing, Toileting,Bathing,Toilet Transfers,Shower Transfers, Activity Tolerance Progress Towards Goals Slow Progress due to Medical Issues,Slow Progress due to Activity Tolerance,Slow Progress due to Cognition Assessment Summary Pt MOD complexity and main barriers are decreased balance , safety awareness, altered mental status, and needing extensive 1-2 person assist for ADl and mobility needs. Pt will greatly benefit from skilled rehab prior to going home. Goals Self-Feeding Goal Independent Grooming Goal Independent Dressing Goal Standby Assistance Toileting Goal Standby Assistance Bathing Goal Independent,Minimal Assistance Toilet Transfer Goal Standby Assistance Shower Transfer Goal Contact Guard Assistance Days to Meet Goals 20 Frequency of Treatment Frequency Of Treatment Once a Day Treatment Plan OT Treatment Plan ADL Training,Functional Cognition Training,Functional Mobility,Patient/Family Education,Discharge Planning Discharge Recommendations OT Discharge Recommendations SNF Rehab Transportation Needs at Discharge Wheelchair/Cabulance
[2023-05-29] MEDS: AZITHROMYCIN 500 MG in DEXTROSE 5% IN WATER 250 ML 250 MG IV (16:03)
[2023-05-29] MEDS: CARBIDOPA-LEVODOPA 25/100 TABLET 1 EACH PO (17:30)
[2023-05-29] MEDS: QUETIAPINE 25 MG TABLET 12.5 MG PO (18:24)
[2023-05-29] MEDS: DEXAMETHASONE 10 MG/ML VIAL 6 MG IV (18:24)
[2023-05-29] MEDS: guaiFENesin ER 600 MG TAB PO (18:24)
[2023-05-29 18:27] LABS: Acinetobacter calcoa-baumannii Not Detected (Not Detect); Bacteroides fragilis Not Detected (Not Detect); Candida albicans Not Detected (Not Detect); Candida auris Not Detected (Not Detect); Candida glabrata Not Detected (Not Detect); Candida krusei Not Detected (Not Detect); Candida parapsilosis Not Detected (Not Detect); Candida tropicalis Not Detected (Not Detect); Cryptococcus neoformans/gatti Not Detected (Not Detect); Enterobacter cloacae complex Not Detected (Not Detect); Enterobacterales Not Detected (Not Detect); Enterococcus faecalis Not Detected (Not Detect); Enterococcus faecium Not Detected (Not Detect); Haemophilus influenzae Not Detected (Not Detect); Klebsiella aerogenes Not Detected (Not Detect); Listeria monocytogenes Not Detected (Not Detect); Neisseria meningitidis Not Detected (Not Detect); Proteus species Not Detected (Not Detect); Pseudomonas aeruginosa Not Detected (Not Detect); Salmonella species Not Detected (Not Detect); Serratia marcescens Not Detected (Not Detect); Staphylococcus epidermidis Detected (Not Detect); Staphylococcus lugdunensis Not Detected (Not Detect); Staphylococcus species Detected (Not Detect); Stenotrophomonas maltophilia Not Detected (Not Detect); Streptococcus agalactiae (Gr B Not Detected (Not Detect); Streptococcus pneumonia Not Detected (Not Detect); Streptococcus pyogenes (Gr A) Not Detected (Not Detect); Streptococcus species Not Detected (Not Detect); mecA/C Resistance Not Detected (Not Detect)
[2023-05-29] MEDS: MELATONIN 3 MG TABLET 6 MG PO (21:56)
[2023-05-29] MEDS: ATORVASTATIN 20 MG TABLET PO (21:57)
[2023-05-29] MEDS: RIVASTIGMINE 3 MG 3 EACH PO (21:57)
[2023-05-29] MEDS: MIRTAZAPINE 15 MG TABLET 7.5 MG PO (21:57)
[2023-05-30] VITALS: BP 134/80; PULSE 80; RESP 16; TEMP 37; O2SAT 96
[2023-05-30] MEDS: BENZONATATE 100 MG CAPSULE 200 MG PO ×2 (03:59→10:13)
[2023-05-30 04:00] VITALS: BP 140/86; PULSE 74; RESP 24; TEMP 36.4; O2SAT 93
[2023-05-30] MEDS: QUETIAPINE 25 MG TABLET PO (04:48)
[2023-05-30] MEDS: ACETAMINOPHEN 325 MG TABLET 975 MG PO (04:49)
[2023-05-30] MEDS: SODIUM CHLORIDE 0.9% 1,000 ML 75 ML IV ×2 (04:52→20:12)
--- NOTE | 2023-05-30 04:59 | RT ---
evaluated the pt he needs suctioned does not need a nebulizer at this time
[2023-05-30 06:12] LABS: Add Manual Diff / Slide Review NO; Basophils Absolute Auto 0 /uL (0-100); Basophils Percent Auto 0.2 % (0-2); Eosinophils Absolute Auto 0 /uL (0-450); Hematocrit 37.9 % (41-53); Hemoglobin 12.9 g/dL (13.5-17.5); Lymphocytes Absolute Auto 400 /uL (1100-4500); Lymphocytes Percent Auto 11.7 % (25-40); Mean Corpuscular HGB Conc 33.9 % (30-36); Mean Corpuscular Hemoglobin 32.5 PG (26-34); Mean Corpuscular Volume 95.8 fL (80-100); Monocytes Absolute Auto 300 /uL (0-900); Monocytes Percent Auto 7.8 % (3-14); Neutrophils Absolute Auto 2800 /uL (1500-7000); Neutrophils Percent Auto 80.3 % (50-75); Platelet Count 139 X10^3/uL (150-400); Red Blood Cell Count 3.95 X10^6/uL (4.5-5.9); Red Cell Distribution Width 13.4 % (11.6-14.8); White Blood Cell Count 3.4 X10^3/uL (4.5-11.0)
[2023-05-30 06:24] LABS: BUN Creatinine Ratio 14.5 (6-22); Blood Urea Nitrogen 23 mg/dL (9-20); Calcium 8.8 mg/dL (8.4-10.2); Carbon Dioxide 19 mmol/L (22-32); Chloride 110 mmol/L (98-107); Estimated Glomerular Filt Rate 44 mL/min (>60); Glucose 134 mg/dL (80-110); Potassium 4.2 mmol/L (3.4-5.1); Sodium 137 mmol/L (137-145)
[2023-05-30 06:27] LABS: HEMOLYSIS < 15 (0-50)
[2023-05-30 06:41] LABS: Procalcitonin 1.17 ng/mL (<0.5)
--- NOTE | 2023-05-30 06:48 | PC.NURSE ---
Patient A&O to name and age only, very confused. Patient restless and tries to get OOB without assist, difficult to redirect. Patient pulled out IV, pulls off continuous POX and O2 NC, pulled off condom cath, refuses SCDs, refuses meds at times. Patient took HS meds crushed in pudding, then refused meds during the night until he spoke with his over the phone. Dr Morejon notified of patient's increased agitation, Seroquel x1 ordered and given along with Tylenol. Patient calmed down and fell asleep about 0600. Previously during the 12 hr night shift manager patient slept for about 2 hours x2. Melatonin was given at HS and Tessalon Perles x1 during the night. Patient has an intermittent loose, congested cough. Patient has a very difficult time expectorating phlegm. POX on O2 NC 3L dipped down into the 80s repeatedly when patient tried to cough up secretions. Dr Morejon notified and RT eval & Tx ordered. RT suggested oral suctioning with Alverto. This RN attempted, but patient uncooperative and only a small amt of phlegm suctioned.
[2023-05-30] MEDS: CARBIDOPA-LEVODOPA 25/100 TABLET 1 EACH PO ×3 (08:25→17:14)
[2023-05-30] MEDS: DEXAMETHASONE 10 MG/ML VIAL 6 MG IV (10:11)
[2023-05-30] MEDS: HEPARIN 5,000 UNIT/ML VIAL 5000 UNIT SUBCUT ×2 (10:12→20:53)
[2023-05-30] MEDS: RIVASTIGMINE 3 MG 3 EACH PO ×2 (10:12→20:54)
[2023-05-30] MEDS: guaiFENesin ER 600 MG TAB PO ×2 (10:16→20:53)
[2023-05-30 10:20] VITALS: BP 118/76; PULSE 61; RESP 36; TEMP 37.5; O2SAT 91
--- NOTE | 2023-05-30 10:55 | PM.PN.1 ---
Subjective Subjective Interval history: Patient remains confused, a bit more shaky today per spouse. He is on 3L at 91% though does take his nasal cannula out frequently. Exam Vital Signs (past 8 hours): - 05/30/23 04:00 05/30/23 10:20 Temperature 97.6 F 99.5 F Pulse Rate 74 61 Respiratory Rate 24 36 H Blood Pressure 140/86 118/76 Pulse Oximetry 93 91 Oxygen Flow Rate 3 3 Oxygen Delivery Method Nasal Cannula Oxygen Flow Rate 3 Narrative Exam Narrative: GEN: ill-appearing, elderly man who is A/Ox2 with wet gurgly cough HEENT: moist mucous membranes, PERRL NECK: trachea midline, no JVD CV: regular rate and rhythm, no murmurs PULM: coarse breath sounds ABD: soft, nontender, nondistended, no organomegaly EXT: warm and well perfused with no edema NEURO: awake, alert, partially oriented, no focal deficits Objective Labs 05/30/23 05:40 05/30/23 05:40 Labs: Laboratory Results - last 24 hr 05/28/23 05/29/23 05/30/23 16:57 10:08 05:40 WBC 3.4 L RBC 3.95 L Hgb 12.9 L Hct 37.9 L MCV 95.8 MCH 32.5 MCHC 33.9 RDW 13.4 Plt Count 139 L Neut % (Auto) 80.3 H Lymph % (Auto) 11.7 L [place] % (Auto) 7.8 Eos % (Auto) 0.0 L Baso % (Auto) 0.2 Neut # (Auto) 2800 Lymph # (Auto) 400 L [place] # (Auto) 300 Eos # (Auto) 0 Baso # (Auto) 0 Sodium 137 Potassium 4.2 Chloride 110 H Carbon Dioxide 19 L BUN 23 H Creatinine 1.59 H Estimated GFR 44 L BUN/Creatinine Ratio 14.5 Glucose 134 H Calcium 8.8 Procalcitonin 1.17 H Urine Color Yellow Urine Appearance Clear Urine pH 5.5 Ur Specific [place] 1.020 Urine Protein Trace H Urine Glucose (UA) Negative Urine Ketones Negative Urine Occult Blood 2+ H Urine Nitrate Negative Urine Bilirubin Negative Urine Urobilinogen 0.2 Ur Leukocyte Esterase Negative Urine RBC 5-10/hpf H Urine WBC None seen Ur Squamous Epith Cells None seen Urine Bacteria None seen Ur Culture Indicated? Cult not indicated Vol Urine Centrifuged 10ml (spun) A.calcoaceticus-baumannii cmplx PCR Not detected Bacteroides fragilis Not detected Alicia albicans (PCR) Not detected Alicia auris (PCR) Not detected C. glabrata (PCR) Not detected C. krusei (PCR) Not detected C. parapsilosis (PCR) Not detected C. tropicalis (PCR) Not detected C. neoform/gattii (PCR) Not detected Enterobacterales (PCR) Not detected E. cloacae complex PCR Not detected Enterococc faecalis PCR Not detected Enterococc faecium PCR Not detected E. coli (PCR) Not detected H. influenzae (PCR) Not detected Klebsiella aerogenes (PCR) Not detected Klebsiella oxytoca PCR Not detected Klebsiella pneumoniae Not detected List. monocytogenes PCR Not detected N. meningitidis (PCR) Not detected Proteus species (PCR) Not detected Salmonella spp. (PCR) Not detected Serratia marcescens PCR Not detected Staphylococcus sp PCR Detected Staph aureus (PCR) Not detected mecA/C & MREJ Resist Gene Not applicable mecA/C-Methicil Resis Gene Not detected mcr-1 Colistin Res Gene PCR Not applicable Staph epidermidis (PCR) Detected Staph lugdunensis PCR Not detected S. maltophilia (PCR) Not detected Streptococcus sp PCR Not detected Group A Strep (PCR) Not detected Strep agalactiae (PCR) Not detected Strep pneumoniae (PCR) Not detected P. aeruginosa (PCR) Not detected Caro/B-Vanco Res Genes Not applicable blaIMP Car res Gene PCR Not applicable KPC-Carbap Res Gene PCR Not applicable blaNDM Car Res Gene PCR Not applicable OXA-48 Carbapenem Resis Gene (PCR) Not applicable blaVIM Car Res Gene PCR Not applicable CTX-M Gene Resistance (PCR) Not applicable PFSH Medical History Nephrolithiasis BPH loc w/o ur obs/LUTS Male circumcision Renal disease Kidney stones Skin cancer Surgical History Vasectomy status Previous back surgery Hx of appendectomy Family History Father Diabetes mellitus Social History marital status: household members: spouse Smoking Status: Never smoker alcohol intake: current caffeine: Yes Assessment & Plan Assessment & Plan narrative: # Sepsis secondary to COVID and bacterial PNA, PNA due to aspiration with acute respiratory failure with hypoxia and acute metabolic encephalopathy -HD2 developed coarse lung sounds with worsening wet cough, had trouble swallowing pills -DIGITAL SALES ASSISTANT consulted -repeat CXR ordered to look for pneumonia, 05/28 CXR was normal. This was consistent with aspiration -procal again uptrending today -empiric rocephin and azithro due to patient high risk for developing bacterial pnuemonia due to aspiration and possible superimposed after COVID 19. # acute metabolic encephalopathy -patient normally AOx3, but didn't know the year in the ED. Likely due to acute COVID infection, fever, and bacterial pneumonia. -CT head negative -low suspicion for meningitis as no meningeal signs, normal leukocytosis -seroquel added for agitation and assistance with sleep. # COVID positive -PCR positive in ED, febrile up to 103F -now with hypoxia started on decadron, will not start remdesevir due to medication interactions. # CKD stage 3 -Cr near baseline (around 1.5), on presentation 1.87 improved to 1.59 today. -continue gentle IVF today with little PO intake. -renally dose meds and avoid nephrotoxic agents # Parkinson's disease -continue rivastigmine and remeron -PT/OT eval -added seroquel as noted above, and trial sinemet to see if improvement in swallow. -MBS planned with speech for 06/01/23. # GERD -continue PPI # HLD -continue lipitor Code status is full code. DVT prophylaxis with heparin subq. Proxy is . I have reviewed home meds and used all available resources to reconcile the home meds. Dispo: Pending improvement in encephalopathy, weakness and swallow. Earliest a couple of days from now. Additional history obtained from bedside staff and care team including case management, and family, to formulate above assessment and plan. Quality VTE Deep Vein Thrombosis/Pulmonary Embolism Present on Admission: No
--- NOTE | 2023-05-30 11:04 | PC.NURSE ---
Day shift: Pt resting in bed this AM. Spouse in room for support. Remains on 3L NC. Lungs sounds congested with audible wheezes/rhonci. Encouraged to cough multiple times. VS WNL. New condom cath placed, brief and bed changed at approx 1045. Alert to self only. Very rigid muscle tone when turning in bed. He did cooperate with moving in bed and was not combative or resistive. IV remains patent. Dr Grayson changed Pt's diet order. Pt did tolerate taking pills in chocolate pudding. Will continue with plan of care.
[2023-05-30 12:00] VITALS: BP 126/65; PULSE 69; RESP 24; TEMP 37.7; O2SAT 92
--- NOTE | 2023-05-30 12:47 | CM.DPNOTE ---
Addendum entered by Cherise Stacia, MANUFACTURING WEAVER 05/30/23 13:50: ADD: Sheryl Mendoza will not consider [facility] and [facility] will not consider COVID+ patients. Original Note: DCP Cont [place] from September at [facility] that patient has [facility] contracted through [facility] Sent referrals to following SNFs with spouse's permission: Vicky Riley- emailed referral to [email or web address]- emailed referral to [email or web address], Elizabeth reports she will have COVID isolation rooms available next week and requests this CM team contact her again Thursday morning to discuss this patient Sheryl Mendoza-emailed referral to [email or web address] Marguerite- faxed referral [facility] DAVID- faxed referral [facility]- discussed referral with September, [facility] is not contracted with [facility] Plan: SNF at discharge is anticipated. Referrals started,CM team will need to follow closely Thursday. PASRR should be completed closer to DC when discharge medication list is known- patient is currently on Seroquel, may or may not discharge on Seroquel. [place]
--- NOTE | 2023-05-30 12:57 | PC.NURSE ---
Day shift: Doing better this afternoon. Responding appropriately to questions. Work of breathing is less. He has been in high Flanagan position since the brief and bed change. Spouse and family member in room for support. He was able to eat approx half of his lunch and drank all of his thickened beverage. Call light in reach. Bed alarm is on.
--- NOTE | 2023-05-30 13:35 | PT.IPTN ---
Current Diagnoses Other specified sepsis (05/28/23) Physical Therapy Treatment Note M2 PT-IP Current Condition Start: 05/29/23 15:41 Freq: NEEDED Status: Active Protocol: Document 05/29/23 14:25 AB (Rec: 05/29/23 15:59 AB [id number]) Physical Therapy Current Condition Current Condition Evaluation Date 05/29/23 Treatment Diagnosis Covid +; AMS; PD; difficulty in walking Onset Date 05/28/23 M3 PT-IP Subjective Start: 05/29/23 15:41 Freq: NEEDED Status: Active Protocol: Document 05/30/23 14:27 ZF (Rec: 05/30/23 14:41 ZF [id number]) Subjective Physical Therapy Visit Type Type Treatment Note Visit Start Time 13:35 Visit Stop Time 14:06 Number of AMMONIA REFRIGERATION TECHNICIAN Visits 1 Physical Therapy Visit Comments Patient Comments Agreeable to PT M4 PT-IP Mobility and Gait Start: 05/29/23 15:41 Freq: NEEDED Status: Active Protocol: Document 05/30/23 14:27 ZF (Rec: 05/30/23 14:41 ZF [id number]) PT-Bed Mobility Assessment Supine to Sit Supine to Sit Standby Assistance,Head of Bed Elevated,Bedrails PT-Transfer Assessment Sit to and From Stand Sit to and from Stand Moderate Assistance,1 Person Assistance,Use of Upper Extremities Equipment Transfer Assistive Device Gait Belt,Front Wheeled Walker Orthotic/Prosthetic Devices or Brace: No Comments Mobility Comments Pt agreeable to therapy. Supine>Sitting EOB requires SBA. Verbal cues and extended time required to complete task . Pt tolerates ~15 mins sitting EOB, with hands resting on 2ww, SBA. STS from EOB w/2ww, x2 requires ModA. Pt tolerates ~2 mins of standing w/CGA before requesting seated RB. Vitals monitored in sitting and in standing. O2 sat ranges from 87-92%. Pt reports fatigue and requests lying back down. Sitting EOB>Supine SBA. Pt able to scoot up in bed w/SBA and cueing. PT-Balance Assessment Sitting Balance and Reactions Static Sitting Balance Ability Fair Dynamic Sitting Balance Ability Poor Standing Balance and Reactions Static Standing Balance Ability Poor M5 PT-IP Objective Assessments Start: 05/29/23 15:41 Freq: NEEDED Status: Active Protocol: Document 05/29/23 14:25 AB (Rec: 05/29/23 15:59 AB [id number]) Orientation Orientation/Cognition Level of Alertness Confusional State Orientation Name Safety Awareness Decreased Safety Awareness Memory Description Short Term Impaired Gross Range of Motion Lower Extremity ROM Assessment Within Functional Limits Strength Lower Extremity Strength Assessment Within Functional Limits Muscle Tone Comments Muscle Tone Comments (+) trunk/UE tremors M6 PT-IP Treatment Start: 05/29/23 15:41 Freq: NEEDED Status: Active Protocol: Document 05/30/23 14:27 ZF (Rec: 05/30/23 14:41 ZF [id number]) Physical Therapy Treatment Education Education Provided Safety M7 PT-IP Assessment and Plan Start: 05/29/23 15:41 Freq: NEEDED Status: Active Protocol: Document 05/30/23 14:27 ZF (Rec: 05/30/23 14:41 ZF [id number]) PT Summary Assessment and Plan Potential Rehabilitation Potential Fair Summary Impairments Pain,ROM,Strength,Balance, Coordination,Sensation,Tone, Cognition,Bed Mobility, Transfers,Gait,Activity Tolerance Assessment Summary Bed Mobility requires SBA with max cueing and extended time. ModA required for STS from EOB. O2sat reduce to 87% on sup O2, with activity, requires lengthy RB and cues for inhaling through nose. Recommending SNF vs Home w/ assist. Goals Bed Mobility Goal Independent Transfer Goal Contact Guard Assistance,Front Wheeled Walker Gait Goal Contact Guard Assistance,Front Wheel Walker Gait Distance 100 Other Goals improve transfers and ambulation using LRAD ~ 200 ft SBA up/down 1 step SBA Days to Meet Goals 10 Frequency of Treatment Frequency Of Treatment Once a Day Treatment Plan Physical Therapy Treatment Plan Bed Mobility Training,Transfer Training,Gait Training, Therapeutic Exercise,Balance Retraining,Post Op Education, Discharge Planning,Hot or Cold Pack,Neuromuscular Re-ed, Coordination Retraining,Manual Therapy Precautions Other Precautions Covid droplet precautions; falls Recommendations To Nursing Amount of Assist Needed 2 Person Assist Discharge Recommendations PT Discharge Recommendations Home with 17/11 Assist Available,Home Health,SNF Rehab,Home vs SNF Equipment Needed for Home Before FWW Discharge Transportation Needs at Discharge Private Vehicle
[2023-05-30] MEDS: cefTRIAXone 1,000 MG in SODIUM CHLORIDE 0.9% 100 ML 200 MG IV (14:03)
[2023-05-30] MEDS: AZITHROMYCIN 500 MG in DEXTROSE 5% IN WATER 250 ML 250 MG IV (14:40)
[2023-05-30 16:00] VITALS: BP 117/67; PULSE 66; RESP 24; TEMP 37; O2SAT 94
[2023-05-30] MEDS: QUETIAPINE 25 MG TABLET 12.5 MG PO (17:15)
[2023-05-30 20:00] VITALS: BP 130/60; PULSE 80; RESP 18; TEMP 37; O2SAT 94
[2023-05-30] MEDS: MIRTAZAPINE 15 MG TABLET 7.5 MG PO (20:54)
[2023-05-30] MEDS: ATORVASTATIN 20 MG TABLET PO (20:55)
[2023-05-31] VITALS (8 sets, daily range): BP systolic 123–142; BP diastolic 58–80; PULSE 56–78; RESP 16–18; TEMP 36.2–37; O2SAT 91–100
[2023-05-31 06:38] LABS: Add Manual Diff / Slide Review NO; Basophils Absolute Auto 0 /uL (0-100); Basophils Percent Auto 0.1 % (0-2); Eosinophils Absolute Auto 0 /uL (0-450); Hematocrit 34.3 % (41-53); Hemoglobin 11.8 g/dL (13.5-17.5); Lymphocytes Absolute Auto 700 /uL (1100-4500); Mean Corpuscular HGB Conc 34.5 % (30-36); Mean Corpuscular Hemoglobin 32.9 PG (26-34); Mean Corpuscular Volume 95.5 fL (80-100); Monocytes Absolute Auto 400 /uL (0-900); Neutrophils Absolute Auto 4200 /uL (1500-7000); Neutrophils Percent Auto 79.9 % (50-75); Platelet Count 131 X10^3/uL (150-400); Red Blood Cell Count 3.59 X10^6/uL (4.5-5.9); Red Cell Distribution Width 13.8 % (11.6-14.8); White Blood Cell Count 5.2 X10^3/uL (4.5-11.0)
[2023-05-31 06:45] LABS: BUN Creatinine Ratio 18.8 (6-22); Blood Urea Nitrogen 28 mg/dL (9-20); Calcium 8.7 mg/dL (8.4-10.2); Carbon Dioxide 21 mmol/L (22-32); Chloride 110 mmol/L (98-107); Estimated Glomerular Filt Rate 47 mL/min (>60); Glucose 115 mg/dL (80-110); HEMOLYSIS < 15 (0-50); Potassium 4.4 mmol/L (3.4-5.1); Sodium 136 mmol/L (137-145)
[2023-05-31 07:02] LABS: Procalcitonin 3.23 ng/mL (<0.5)
[2023-05-31] MEDS: RIVASTIGMINE 3 MG 3 EACH PO ×2 (08:43→20:15)
[2023-05-31] MEDS: CARBIDOPA-LEVODOPA 25/100 TABLET 1 EACH PO ×3 (08:43→16:57)
[2023-05-31] MEDS: DEXAMETHASONE 10 MG/ML VIAL 6 MG IV (08:43)
[2023-05-31] MEDS: guaiFENesin ER 600 MG TAB PO ×2 (08:43→20:15)
[2023-05-31] MEDS: HEPARIN 5,000 UNIT/ML VIAL 5000 UNIT SUBCUT ×2 (08:44→20:15)
[2023-05-31] MEDS: SODIUM CHLORIDE 0.9% 1,000 ML 75 ML IV (09:18)
--- NOTE | 2023-05-31 12:11 | PT.IPTN ---
Current Diagnoses Other specified sepsis (05/28/23) Physical Therapy Treatment Note M2 PT-IP Current Condition Start: 05/29/23 15:41 Freq: NEEDED Status: Active Protocol: Document 05/29/23 14:25 AB (Rec: 05/29/23 15:59 AB [id number]) Physical Therapy Current Condition Current Condition Evaluation Date 05/29/23 Treatment Diagnosis Covid +; AMS; PD; difficulty in walking Onset Date 05/28/23 M3 PT-IP Subjective Start: 05/29/23 15:41 Freq: NEEDED Status: Active Protocol: Document 05/31/23 11:22 SAK (Rec: 05/31/23 11:32 SAK [id number]) Subjective Physical Therapy Visit Type Type Treatment Note Visit Start Time 10:50 Visit Stop Time 11:24 Notes 34 Physical Therapy Visit Comments Patient Comments Feeling a little better. Nursing reports patient on room air M4 PT-IP Mobility and Gait Start: 05/29/23 15:41 Freq: NEEDED Status: Active Protocol: Document 05/31/23 11:22 SAK (Rec: 05/31/23 11:32 SAK [id number]) PT-Bed Mobility Assessment Supine to Sit Supine to Sit Standby Assistance,Head of Bed Elevated,Bedrails PT-Transfer Assessment Sit to and From Stand Sit to and from Stand Moderate Assistance,1 Person Assistance,Use of Upper Extremities Equipment Transfer Assistive Device Gait Belt,Front Wheeled Walker Orthotic/Prosthetic Devices or Brace: No Comments Mobility Comments Patient just assisted up to chair with nursing. Sit to stand x 2 with mod assist of 1 and cues for hand placement, trunk flexion. Gait training 20 ft x 2 with 2 min rest in between; FWW with min assist for safety. O2 sats ranged from 89-92, c/o slight dizziness during 2nd bout of walking. Patient able to name year, unable to name place ( said [place]). PT-Balance Assessment Sitting Balance and Reactions Static Sitting Balance Ability Fair Dynamic Sitting Balance Ability Fair Standing Balance and Reactions Static Standing Balance Ability Poor M5 PT-IP Objective Assessments Start: 05/29/23 15:41 Freq: NEEDED Status: Active Protocol: Document 05/31/23 11:22 SAK (Rec: 05/31/23 11:32 SAK [id number]) Orientation Orientation/Cognition Level of Alertness Confusional State Orientation Name,Year Safety Awareness Decreased Safety Awareness Memory Description Short Term Impaired M6 PT-IP Treatment Start: 05/29/23 15:41 Freq: NEEDED Status: Active Protocol: Document 05/31/23 11:22 [facility] (Rec: 05/31/23 11:32 SAK [id number]) Physical Therapy Treatment Education Education Provided Safety M7 PT-IP Assessment and Plan Start: 05/29/23 15:41 Freq: NEEDED Status: Active Protocol: Document 05/31/23 11:22 [facility] (Rec: 05/31/23 11:32 [facility] [id number]) PT Summary Assessment and Plan Potential Rehabilitation Potential Fair Summary Impairments Pain,ROM,Strength,Balance, Coordination,Sensation,Tone, Cognition,Bed Mobility, Transfers,Gait,Activity Tolerance Assessment Summary Patient still with confusion, needs moderate cues and min to mod physical assist for safe transfer skills in and out of chair but able to ambulate in room with min assist. On room air O2 sats 89 -92 during treatmente. REcommend SNF rehab. Goals Bed Mobility Goal Independent Transfer Goal Contact Guard Assistance,Front Wheeled Walker Gait Goal Contact Guard Assistance,Front Wheel Walker Gait Distance 100 Other Goals improve transfers and ambulation using LRAD ~ 200 ft SBA up/down 1 step SBA Days to Meet Goals 10 Frequency of Treatment Frequency Of Treatment Once a Day Treatment Plan Physical Therapy Treatment Plan Bed Mobility Training,Transfer Training,Gait Training, Therapeutic Exercise,Balance Retraining,Post Op Education, Discharge Planning,Hot or Cold Pack,Neuromuscular Re-ed, Coordination Retraining,Manual Therapy Precautions Other Precautions Covid droplet precautions; falls Recommendations To Nursing Amount of Assist Needed 1 Person Assist,2 Person Assist Discharge Recommendations PT Discharge Recommendations Home with 17/11 Assist Available,Home Health,SNF Rehab,Home vs SNF Equipment Needed for Home Before FWW Discharge Transportation Needs at Discharge Private Vehicle,Wheelchair/ Cabulance
--- NOTE | 2023-05-31 12:57 | P.PN_ITS ---
Subjective Subjective Date Patient Seen: 05/31/23 Time Patient Seen: 12:57 Interval history: Patient is much improved today, complains of fatigue and fogginess. No longer on oxygen today. Exam Vital Signs (past 8 hours): - 05/31/23 07:00 05/31/23 07:46 05/31/23 07:47 Temperature Pulse Rate Respiratory Rate Blood Pressure Pulse Oximetry 97 97 Oxygen Delivery Method Nasal Cannula Nasal Cannula Nasal Cannula Oxygen Flow Rate 3 2 05/31/23 08:00 05/31/23 12:00 Temperature 97.3 F L 97.2 F L Pulse Rate 60 56 L Respiratory Rate 18 16 Blood Pressure 130/68 134/71 Pulse Oximetry 100 92 Oxygen Delivery Method Oxygen Flow Rate 3 0 Oxygen Delivery Method Nasal Cannula Oxygen Flow Rate 0 Narrative Exam Narrative: GEN: no acute distress, elderly man who is A/Ox2, no cough, appears improved. HEENT: moist mucous membranes, PERRL NECK: trachea midline, no JVD CV: regular rate and rhythm, no murmurs PULM: coarse breath sounds ABD: soft, nontender, nondistended, no organomegaly EXT: warm and well perfused with no edema NEURO: awake, alert, no focal deficits Objective Labs 05/31/23 06:10 05/31/23 06:10 Labs: Laboratory Results - last 24 hr 05/31/23 06:10 WBC 5.2 D RBC 3.59 L Hgb 11.8 L Hct 34.3 L MCV 95.5 MCH 32.9 MCHC 34.5 RDW 13.8 Plt Count 131 L Neut % (Auto) 79.9 H Lymph % (Auto) 13.0 L Mcdonough % (Auto) 7.0 Eos % (Auto) 0.0 L Baso % (Auto) 0.1 Neut # (Auto) 4200 Lymph # (Auto) 700 L Mcdonough # (Auto) 400 Eos # (Auto) 0 Baso # (Auto) 0 Sodium 136 L Potassium 4.4 Chloride 110 H Carbon Dioxide 21 L BUN 28 H Creatinine 1.49 H Estimated GFR 47 L BUN/Creatinine Ratio 18.8 Glucose 115 H Calcium 8.7 Procalcitonin 3.23 H PFSH Medical History Nephrolithiasis BPH loc w/o ur obs/LUTS Male circumcision Renal disease Kidney stones Skin cancer Surgical History Vasectomy status Previous back surgery Hx of appendectomy Family History Father Diabetes mellitus Social History marital status: household members: spouse Smoking Status: Never smoker alcohol intake: current caffeine: Yes Assessment & Plan Assessment & Plan narrative: # Sepsis secondary to COVID and bacterial PNA, PNA due to aspiration with acute respiratory failure with hypoxia and acute metabolic encephalopathy -HD2 developed coarse lung sounds with worsening wet cough, had trouble swallowing pills -MI[employer] BI ARCHITECT consulted, plan for MBS tomorrow -repeat CXR ordered to look for pneumonia, 05/28 CXR was normal. This was consistent with aspiration -procal again uptrending today, but clinically appears improved. -empiric rocephin and azithro due to patient high risk for developing bacterial pnuemonia due to aspiration and possible superimposed after COVID 19. # acute metabolic encephalopathy, improving -patient normally AOx3, but didn't know the year in the ED. Likely due to acute COVID infection, fever, and bacterial pneumonia. -CT head negative -low suspicion for meningitis as no meningeal signs, normal leukocytosis -seroquel added for agitation and assistance with sleep. # COVID positive -PCR positive in ED, febrile up to 103F -started on steroids with hypoxia, now that he is no longer requiring O2 will stop steroids. # CKD stage 3 -Cr near baseline (around 1.5), on presentation 1.87 improved to 1.49 today. -continue gentle IVF today with little PO intake. -renally dose meds and avoid nephrotoxic agents # Parkinson's disease -continue rivastigmine and remeron -PT/OT eval -added seroquel as noted above, and trial sinemet to see if improvement in swallow. -MBS planned with speech for 06/01/23. # GERD -continue PPI # HLD -continue lipitor Code status is full code. DVT prophylaxis with heparin subq. Proxy is . I have reviewed home meds and used all available resources to reconcile the home meds. Dispo: Possible discharge tomorrow if continues improvement, with continued improvement may be able to discharge home vs SNF Additional history obtained from bedside staff and care team including case management, and family, to formulate above assessment and plan. Quality VTE Deep Vein Thrombosis/Pulmonary Embolism Present on Admission: No
[2023-05-31] MEDS: cefTRIAXone 1,000 MG in SODIUM CHLORIDE 0.9% 100 ML 200 MG IV (13:38)
[2023-05-31] MEDS: AZITHROMYCIN 500 MG in DEXTROSE 5% IN WATER 250 ML 250 MG IV (14:23)
[2023-05-31] MEDS: QUETIAPINE 25 MG TABLET 12.5 MG PO (16:57)
[2023-05-31] MEDS: ATORVASTATIN 20 MG TABLET PO (20:15)
[2023-05-31] MEDS: MIRTAZAPINE 15 MG TABLET 7.5 MG PO (20:15)
[2023-06-01] VITALS: BP 130/66; PULSE 80; RESP 16; TEMP 36.7; O2SAT 98
[2023-06-01 04:00] VITALS: BP 128/80; PULSE 74; RESP 16; TEMP 36.7; O2SAT 97
[2023-06-01 06:28] LABS: Add Manual Diff / Slide Review NO; Basophils Absolute Auto 0 /uL (0-100); Basophils Percent Auto 0.1 % (0-2); Eosinophils Absolute Auto 0 /uL (0-450); Hematocrit 34.4 % (41-53); Lymphocytes Absolute Auto 700 /uL (1100-4500); Lymphocytes Percent Auto 13.7 % (25-40); Mean Corpuscular HGB Conc 34.8 % (30-36); Mean Corpuscular Hemoglobin 33.2 PG (26-34); Mean Corpuscular Volume 95.5 fL (80-100); Monocytes Absolute Auto 500 /uL (0-900); Monocytes Percent Auto 9.3 % (3-14); Neutrophils Absolute Auto 4100 /uL (1500-7000); Neutrophils Percent Auto 76.9 % (50-75); Platelet Count 143 X10^3/uL (150-400); Red Cell Distribution Width 13.7 % (11.6-14.8); White Blood Cell Count 5.3 X10^3/uL (4.5-11.0)
[2023-06-01 06:50] LABS: BUN Creatinine Ratio 22.6 (6-22); Blood Urea Nitrogen 31 mg/dL (9-20); Calcium 8.9 mg/dL (8.4-10.2); Carbon Dioxide 20 mmol/L (22-32); Chloride 110 mmol/L (98-107); Estimated Glomerular Filt Rate 52 mL/min (>60); Glucose 117 mg/dL (80-110); HEMOLYSIS < 15 (0-50); Potassium 4.3 mmol/L (3.4-5.1); Sodium 136 mmol/L (137-145)
[2023-06-01 08:00] VITALS: BP 132/85; PULSE 68; RESP 16; TEMP 36.4; O2SAT 92
[2023-06-01] MEDS: HEPARIN 5,000 UNIT/ML VIAL 5000 UNIT SUBCUT (08:15)
[2023-06-01] MEDS: guaiFENesin ER 600 MG TAB PO (08:15)
[2023-06-01] MEDS: CARBIDOPA-LEVODOPA 25/100 TABLET 1 EACH PO ×2 (08:15→12:01)
[2023-06-01] MEDS: RIVASTIGMINE 3 MG 3 EACH PO (08:15)
--- NOTE | 2023-06-01 08:50 | DI.RAD.S_ITS ---
PROCEDURE: FL BARIUM SWALLOW W SPEECH INDICATIONS: swallow COMPARISON: TECHNIQUE: Examination was conducted in conjunction with speech pathology per standard protocol. In the lateral projection, filming was performed of the patient swallowing. AP projection filming may also be performed with patient swallowing. COMPARISON: [facility], , [place] BARIUM SWALLOW W SPEECH, 05/29/2023, 13:09. FINDINGS: Function: There is trace laryngeal penetration, improved compared to the last exam. No elizabeth aspiration.. Morphology: No cricopharyngeal bar is identified. No cervical esophageal webs. No Zenker's diverticulum. No strictures. IMPRESSION: 1. Trace laryngeal penetration, improved compared to the last exam. No elizabeth aspiration on the current exam. Please see separate speech pathologist's report. Dictated by: Chuck Mancilla M.D. on 06/01/2023 at 13:45 Approved by: Chuck Mancilla M.D. on 06/01/2023 at 13:47
--- NOTE | 2023-06-01 10:16 | ST.IPTN ---
Visit Care Team Role Provider Type Yesenia Christine PA-C Family Provider Physician Aircraft Motor Mechanic Primary Care Provider Address: [place], [address] Pablo Roberts DO Emergency Provider Physician Referring Provider Address: [address] [place] [address], [address] Tony Morocho DO Admit Provider Physician Attending Provider Address: [address] [place] [address], [id number] APPLE SORTER Treatment Note APPLE SORTER Treatment Note Start: 06/01/23 09:59 Freq: Status: Active Protocol: Document 06/01/23 10:00 MA (Rec: 06/01/23 10:16 MA [id number]) Speech Pathology Treatment Note Session Time Visit Start Time 08:20 Visit Stop Time 08:50 Total Visit Minutes 30 Visit Information Visit Number 2 Setting Treatment Setting Acute Care Visit Type Note Type Treatment Note General Information Patient History Bro Tubbs is an 82yo M with PMH of CKD stage 3, parkinson 's disease, BPH, and GERD who presents with AMS and COVID positive. Per his who at bedside patient began acting altered on night of 05/27/23 and went to bed but slept in a recliner chair which is not his usual. He noted a sore throat and had a fever so she COVID tested him at home which was positive. He then slept most of the day today until she went to check on him and found him slumped off of a stool and altered. Normally he is AOx3. He was brought to the ED where his triage temp was 103F. He was able to say he was in the hospital, but did not know the year. COVID positive on PCR. Pt had received IV tylenol and fever improved as well as mental status. He says his throat is scratchy. He knows the president. Denies CP, abd pain, NV, or diarrhea. A chest x-ray from yesterday, 05/28/23 was unremarkable. Repeat chest X-ray from this morning is also unremarkable. Subjective Identification Type Name,ID Wristband Observations/Patient Presentation Pt sitting upright in recliner with breakfast tray on tray table. Nursing reports Pt with reduced coughing and swallowed pills crushed in applesauce without difficulties. Pt oriented to year, however difficulties recalling what city he is in. He also demonstrated what may be hallucinations, characterized by Pt reporting water dripping and lions in room. Objective Treatment Activities PO trials, safe swallowing strategies Assessment Patient Response to Treatment Good Impairments Identified Swallow Assessment of Improvement Pt awake, and alert sitting upright in recliner in room. ST assessed swallow function with therapeutic PO trial of thin water via cup. Oral care provided prior to PO trials with use of toothbrush. Pt reported he consumed scrambled eggs for breakfast without difficulties. For thin water via cup, ST instructed Pt to take small cup sips. Pt demonstrated good oral acceptance and containment, delayed ap transport with Pt occasionally swishing mouth with water. Suspected delay in swallow, audible swallow reflex, occasional double swallows to clear bolus. Pt with cough reflex prior to PO trials and delayed cough x2, however clear vocal quality. ST instructed Pt on super supraglottic swallow method to prevent s/s of aspiration. Pt reported he did not recall learning that a few days ago. ST provided Pt the steps to complete swallow strategy, which he demonstrated x5. ST unable to determine if coughing d/t baseline cough from COVID or d/t aspiration. ST recommends Pt have a repeat MBS to rule out aspiration. ST communicated recommendation with MD, nursing and APPLE SORTER colleague. ST recommends continuation of regular solids with food cut into small pieces in order for Pt to take small bites.
--- NOTE | 2023-06-01 10:53 | PC.NURSE ---
Patient is confused but does know he is in [place]. He does not where he is at or why he is here. Patient was given a shower this morning. He is down at his barrium swallow now and will be back up to the floor in a half hour or so. Son is in room and patient just got back from his test. Patient is now sitting up in his chair and visiting with his son.
[2023-06-01 12:00] VITALS: BP 140/58; PULSE 69; RESP 16; TEMP 36.4; O2SAT 92
--- NOTE | 2023-06-01 12:17 | PT.IPTN ---
Current Diagnoses Other specified sepsis (05/28/23) Physical Therapy Treatment Note M2 PT-IP Current Condition Start: 05/29/23 15:41 Freq: NEEDED Status: Active Protocol: Document 05/29/23 14:25 AB (Rec: 05/29/23 15:59 AB [id number]) Physical Therapy Current Condition Current Condition Evaluation Date 05/29/23 Treatment Diagnosis Covid +; AMS; PD; difficulty in walking Onset Date 05/28/23 M3 PT-IP Subjective Start: 05/29/23 15:41 Freq: NEEDED Status: Active Protocol: Document 06/01/23 12:14 AW (Rec: 06/01/23 12:29 AW [id number]) Subjective Physical Therapy Visit Type Type Treatment Note Visit Start Time 11:48 Visit Stop Time 12:13 Number of PEDIATRIC LPN Visits 0 Physical Therapy Visit Comments Patient Comments Pt is sitting up in the chair with his son visiting. He is immediately agreeable to work with PT. Therapy Pain Assessment Pain When Pain Assessed During Mobility Pain Present Pain Present Denied Pain M4 PT-IP Mobility and Gait Start: 05/29/23 15:41 Freq: NEEDED Status: Active Protocol: Document 06/01/23 12:14 AW (Rec: 06/01/23 12:29 AW [id number]) PT-Transfer Assessment Sit to and From Stand Sit to and from Stand Standby Assistance,Contact Guard Assistance,1 Person Assistance,Use of Upper Extremities Equipment Transfer Assistive Device Gait Belt,Front Wheeled Walker Orthotic/Prosthetic Devices or Brace: No Transfers Transfer Destination Chair Transfer Technique pt ambulates with FWW Transfer Ability Level of Assist Standby Assistance,Contact Guard Assistance Comments Mobility Comments Pt is found resting in the chair. He stands with CGA initially but progresses to SBA second rep. Pt sits to rest and agrees to 5 Time Sit to Stand. He initiates well, standing with only verbal cues and SBA but becomes fatigued after four consecutive reps ( in 30 seconds). After a brief seated rest, pt stands SBA and uses FWW to ambulate 40 feet in the room with SBA. PT assesses another 40 feet of gait without AD. Gait is less stable with narrow to scissoring RAHEL, requiring CGA. PT educates pt and his son on continuing to use FWW at this time. Gait Assessment Gait Gait Assistance Required: Standby Assistance,Contact Guard Assist Distance (Feet) 80 Able to Maintain Weight Bearing Status Yes During Gait Assistive Devices Assistive Device None,Gait Belt,Front Wheeled Walker Gait Deviations General Gait Pattern Decreased Stride Length, Decreased Feet Clearance, Lateral Trunk Lean,Narrow Based Gait Factors Limiting Gait Function Factors Limiting Gait Function Poor Balance,Poor Safety Awareness Comments Gait Comments Pt walks 40 feet with FWW SBA. Additional 40 feet without AD requires CGA with gait deviations worsening. PT-Balance Assessment Sitting Balance and Reactions Static Sitting Balance Ability Good Dynamic Sitting Balance Ability Good Standing Balance and Reactions Static Standing Balance Ability Fair Dynamic Standing Balance Ability Fair Functional Assessments Functional Tests 30 Seconds Sit to Stand Test 4 reps SBA M5 PT-IP Objective Assessments Start: 05/29/23 15:41 Freq: NEEDED Status: Active Protocol: Document 05/31/23 11:22 SAK (Rec: 05/31/23 11:32 SAK [id number]) Orientation Orientation/Cognition Level of Alertness Confusional State Orientation Name,Year Safety Awareness Decreased Safety Awareness Memory Description Short Term Impaired M6 PT-IP Treatment Start: 05/29/23 15:41 Freq: NEEDED Status: Active Protocol: Document 06/01/23 12:14 AW (Rec: 06/01/23 12:29 AW [id number]) Physical Therapy Treatment Education Education Provided Safety Other Treatments Other Treatment Performed Reinforced education on recommendation for use of FWW or 4WW. Also provided caregiver training for son to don gait belt and safe guarding techniques. M7 PT-IP Assessment and Plan Start: 05/29/23 15:41 Freq: NEEDED Status: Active Protocol: Document 06/01/23 12:14 AW (Rec: 06/01/23 12:29 AW [id number]) PT Summary Assessment and Plan Potential Rehabilitation Potential Good Summary Impairments Pain,ROM,Strength,Balance, Coordination,Sensation,Tone, Cognition,Bed Mobility, Transfers,Gait,Activity Tolerance Progress Towards Goals Progressing Toward Goals Assessment Summary Pt requires fewer cues and less assist today. Gait deviation do significantly worsen without AD and PT recommends use of FWW or 4WW at home. Pt's son is present and states he is comfortable providing the level of assist pt is needing at this time. PT recommending / assist for mobility and home PT for continued transfer and gait training. Goals Bed Mobility Goal Independent Transfer Goal Contact Guard Assistance,Front Wheeled Walker Gait Goal Contact Guard Assistance,Front Wheel Walker Gait Distance 100 Other Goals improve transfers and ambulation using LRAD ~ 200 ft SBA up/down 1 step SBA Days to Meet Goals 10 Frequency of Treatment Frequency Of Treatment Once a Day Treatment Plan Physical Therapy Treatment Plan Bed Mobility Training,Transfer Training,Gait Training, Therapeutic Exercise,Balance Retraining,Post Op Education, Discharge Planning,Hot or Cold Pack,Neuromuscular Re-ed, Coordination Retraining,Manual Therapy Precautions Other Precautions Covid droplet precautions; falls Recommendations To Nursing Amount of Assist Needed Standby Assistance,1 Person Assist Discharge Recommendations PT Discharge Recommendations Home with 17/11 Assist Available,Home Health Equipment Needed for Home Before FWW vs 4WW Discharge Transportation Needs at Discharge Private Vehicle
--- NOTE | 2023-06-01 12:44 | PM.DS.1 ---
History of Present Illness History of Present Illness Date Patient Seen: 06/01/23 Time Patient Seen: 12:45 Chief complaint: fall + covid Narrative: Bro Tubbs is an 82yo M with PMH of CKD stage 3, parkinson's disease, BPH, and GERD who presents with AMS and COVID positive. Per his who at bedside patient began acting altered last night and went to bed but slept in a recliner chair which is not his usual. He noted a sore throat and had a fever so she COVID tested him at home which was positive. He then slept most of the day today until she went to check on him and found him slumped off of a stool and altered. Normally he is AOx3. He was brought to the ED where his triage temp was 103F. He was able to say he was in the hospital, but did not know the year. COVID positive on PCR. During my assessment patient is more oriented and know the month and the year. Had received IV tylenol and fever improved as well as mental status. He says his throat is scratchy. He knows the president. Denies CP, abd pain, NV, or diarrhea. Discharge Providers Provider Date of admission: 05/28/23 18:03 Discharge Date: 06/01/23 Primary care physician: Yesenia Christine PA-C Consults: 05/28/23 18:31 Consult to Occupational Therapy Evaluate & Treat Comment: Physician Instructions: Evaluate and treat Consult to Physical Therapy Evaluate & Treat Comment: Physician Instructions: Evaluate and Treat 05/29/23 10:04 Consult to Speech Therapy Evaluate & Treat Comment: Physician Instructions: Evaluate and treat Discharge provider: David Grayson DO Summary Hospital Course Discharge Diagnosis: # Sepsis secondary to COVID and bacterial PNA, PNA due to aspiration with acute respiratory failure with hypoxia and acute metabolic encephalopathy and BLAIR # acute metabolic encephalopathy, improving # COVID positive # BLAIR on CKD stage 3 # Parkinson's disease # GERD # HLD Hospital Course: This is an 82 year old male with PMH of parkinsons, CKD, HLD who was admitted with an acute encephalopathy due to COVID. He initially was not hypoxic but very confused compared to baseline. On HD#2 he developed worsening respiratory secretions and was hypoxic as well. He was started on antibiotics empirically and also steroids for possible severe COVID. Speech was consulted and he was found to be aspirating. Presentation was most likely due to an aspiration due to likely his encephalopathy. He also had BLAIR as creatinine improved from 1.9 to 1.37 at time of discharge. His home sinemet was also increased at the time. A few days later he had marked improvement in mentation, and breathing. He was no longer requiring supplemental oxygen. Steroids were stopped when hypoxia resolved. He did have repeat speech eval and barium swallow on 06/01 with marked improvement in his swallow. He did much improved with physical and occupational therapy and was discharged home on 06/01. He completed an adequate course of antibiotics for aspiration at the time of discharge, with no need for ongoing antibiotic therapy at home. His home sinemet was increased and I recommend continued management with PCP or neurology if patient follows with neurologist. Time Spent with Patient Time spent: Greater than 30 minutes Exam Vital Signs (past 8 hours): - 06/01/23 08:00 Temperature 97.6 F Pulse Rate 68 Respiratory Rate 16 Blood Pressure 132/85 Pulse Oximetry 92 Oxygen Delivery Method Room Air Oxygen Flow Rate 0 Narrative Exam Narrative: GEN: no acute distress, elderly man who is A/Ox2, no cough, appears improved. HEENT: moist mucous membranes, PERRL NECK: trachea midline, no JVD CV: regular rate and rhythm, no murmurs PULM: coarse breath sounds ABD: soft, nontender, nondistended, no organomegaly EXT: warm and well perfused with no edema NEURO: awake, alert, no focal deficits Objective Labs 06/01/23 05:50 06/01/23 05:50 Labs: Laboratory Results - last 24 hr 06/01/23 05:50 WBC 5.3 RBC 3.60 L Hgb 12.0 L Hct 34.4 L MCV 95.5 MCH 33.2 MCHC 34.8 RDW 13.7 Plt Count 143 L Neut % (Auto) 76.9 H Lymph % (Auto) 13.7 L Mcdonald % (Auto) 9.3 Eos % (Auto) 0.0 L Baso % (Auto) 0.1 Neut # (Auto) 4100 Lymph # (Auto) 700 L Mcdonald # (Auto) 500 Eos # (Auto) 0 Baso # (Auto) 0 Sodium 136 L Potassium 4.3 Chloride 110 H Carbon Dioxide 20 L BUN 31 H Creatinine 1.37 H Estimated GFR 52 L BUN/Creatinine Ratio 22.6 H Glucose 117 H Calcium 8.9 PFSH Medical History Nephrolithiasis BPH loc w/o ur obs/LUTS Male circumcision Renal disease Kidney stones Skin cancer Surgical History Vasectomy status Previous back surgery Hx of appendectomy Family History Father Diabetes mellitus Social History marital status: household members: spouse Smoking Status: Never smoker alcohol intake: current caffeine: Yes Discharge Plan Discharge Plan Patient Disposition: Home Provider Discharge Comment: You were admitted to the hospital with confusion, likely due to COVID 19. You did well with swallow, I would recommend continuing the increase dose of sinemet for now. please follow up with PCP after discharge in 1-2 weeks to discuss ongoing parkinson's medications. Discharge orders & Medications Prescriptions: New carbidopa-levodopa 25-100 mg Tablet 1 tab PO 0800,1200,1700 30 Days Qty: 90 0RF Continued ascorbate calcium (vitamin C) 500 mg tablet 500 mg PO DAILY benzonatate 200 mg capsule 200 mg PO TID PRN (Reason: cough) Qty: 30 0RF atorvastatin 20 mg tablet 10 mg PO DAILY rivastigmine tartrate 3 mg capsule 3 mg PO BID mirtazapine 7.5 mg tablet 7.5 mg PO ONCE PM cyanocobalamin (vitamin B-12) 1,000 mcg Tablet 1,000 mcg PO DAILY acetaminophen 650 mg Tablet 650 mg PO Q6H PRN (Reason: Pain (Scale Score 1-3)) vitamin E 268 mg (400 unit) Capsule 268 mg PO DAILY loratadine 10 mg Tablet 10 mg PO DAILY PRN (Reason: Allergy Symptoms) omeprazole 20 mg Tablet,Delayed Release (Dr/Ec) 20 mg PO DAILY cholecalciferol (vitamin D3) [Vitamin D3] 125 mcg (5,000 unit) Tablet 125 mcg PO DAILY magnesium 200 mg Tablet 400 mg PO DAILY PreserVision AREDS 4,296 mcg-226 mg-90 mg Capsule 1 cap PO BID coQ10 (ubiquinol) 200 mg Capsule 200 mg PO DAILY Mcintosh 3-6-9 1,200 mg Capsule 1 cap PO DAILY aspirin [Adult Aspirin Regimen] 81 mg tablet,delayed release (DR/EC) 81 mg PO DAILY multivitamin Tablet 1 tab PO DAILY Discontinued carbidopa-levodopa 10-100 mg tablet 1 tab PO TID Follow up/Referrals: Yesenia Christine, ADRIAN [Primary Care Provider] - Diet/Activity/Treatments Diet: Diet as Tolerated and Regular Activity: As tolerated, no restrictions Visit Report/Discharge Packet Instructions: Levodopa and Carbidopa, DI for COVID-19 (Suspected or Confirmed ), COVID-19 Stand Alone Forms: Patient Portal/API, Stroke Signs & Symptoms Discharge Data Primary Care Provider: Yesenia Christine Quality VTE Deep Vein Thrombosis/Pulmonary Embolism Present on Admission: No
--- NOTE | 2023-06-01 13:04 | CM.DPC ---
DCP HH Planning: Per MD, pt has made some significant progress yesterday and today and may be medically stable to discharge pending further PT/OT and labs. Per PT/OT, pt made great improvements and now SBA with FWW and was able to ambulate a good distance and do sit to stands and recommending home with 24/7 assist and HH. Son had been bedside during PT session today but currently not bedside. SW left son a vm due to pt's ongoing confusion. SW called pt's spouse Cristiane and explained role and she confirms she also has COVID and scratchy throat and that he son just arrived to her home from the hospital. SW discussed pt's progress and current recommendations and spouse confirms her preference is pt d/c home and son plans to stay to assist as well and preference is [facility]. LUDWIN Flores made [facility] referral along with completed F2F and HH orders. Plan: SW to follow for possible discharge home today via son POV and new [facility] to follow. ELISABETH Tovar
--- NOTE | 2023-06-01 13:43 | ST.SWALLOW ---
Visit Care Team Role Provider Type Yesenia Christine PA-C Family Provider Physician Sales Enablement Lead Primary Care Provider Specialty: Medical Address: [place], [address] Email: [email or web address] Pablo Roberts DO Emergency Provider Physician Referring Provider Specialty: Emergency Medicine Address: [address] [place] [address], [address] Email: [email or web address] Admit Provider Physician Attending Provider Specialty: Internal Medicine Address: [address] [place] [address], [address] Email: [email or web address] Modified Barium Swallow Study [employer]OL Modified Barium Swallow Study Start: 05/29/23 12:38 Freq: Status: Active Protocol: Document 06/01/23 12:29 LNK (Rec: 06/01/23 13:43 LNK [id number]) Modified Barium Swallow Study Total Time Visit Start Time 10:30 Visit Stop Time 11:00 Total Visit Minutes [address] Morocho Reason for Referral Dysphagia Setting Setting Acute Care Patient Information Identification Type Name,Date of Patient History Bro Tubbs is an 82yo M with PMH of CKD stage 3, parkinson 's disease, BPH, and GERD who presents with AMS and COVID positive. Per his who at bedside patient began acting altered on night of 05/27/23 and went to bed but slept in a recliner chair which is not his usual. He noted a sore throat and had a fever so she COVID tested him at home which was positive. He then slept most of the day today until she went to check on him and found him slumped off of a stool and altered. Normally he is AOx3. He was brought to the ED where his triage temp was 103F. He was able to say he was in the hospital, but did not know the year. COVID positive on PCR. Pt reported to this [employer] that he stopped his Parkinson's medication a while ago as he felt there was no changes/ improvement. He was put back on PD medication during this inpt admit. MBS attempted on 05/29/2023 with elziabeth aspiration and overall weakened oropharyngeal structures. Pt's diet was regular textures with thin liquids. Small sips and bited were recommended at that time. Repeat MBSS ordered to determine pt's current swallow ability and aspiration risk. Subjective Observations Pt was seated in the fluoroscopy chair with directions and procedures described for him. He indicated he understood and agreed to procede. Patient Positioning Position View Lat-A/P Imaging Lateral View Textures Administered Trials Presented Thin Liquid via Spoon (IDDSI 0 ),Thin Liquid via Cup (IDDSI 0 ),Thin Liquid via Straw (IDDSI 0),Mildly Thick Liquid via Spoon (IDDSI 2),Mildly Thick Liquid via Cup (IDDSI 2), Extremely Thick Liquid via Spoon (IDDSI 4),Regular (IDDSI 7) Barium Tablet No The IDDSI Framework Protocol: IDDSI.1 Oral Impairment Source: The Modified Barium Swallow Impairment Profile (MBSImP??) Lip Closure Interlabial escape; no progression to anterior lip Tongue Control During Bolus Hold Posterior escape of less than half of bolus Bolus Preparation/Mastication Disorganized chewing/mashing with solid pieces of bolus unchewed Bolus Transport/Lingual Motion Repetitive/disorganized tongue motion Oral Residue Residue collection on oral structures Location Tongue Initiation of Pharyngeal Swallow Bolus head at pyriforms Additional Oral Impairment Observations OME and DKS observed to be WFL with mildly slowed and weak oral structures. Improved bolus hold and control. Initiation of AP transition and initiation of swallow disorganized, repetitive and delayed. Mastication with rotary chew and WFL Pharyngeal Impairment Source: The Modified Barium Swallow Impairment Profile (MBSImP??) Soft Palate Elevation Escape to nasopharynx Laryngeal Elevation Part.sup.move.thyroid cart/ part.approx.arytenoids to epiglot.petiole Anterior Hyoid Excursion Partial anterior movement Epiglottic Movement Complete inversion Laryngeal Vestibular Closure Incomplete; narrow column air/ contrast in laryngeal vestibule Pharyngeal Stripping Wave Present - diminished Pharyngoesophageal Segment Opening Partial distention/partial duration; partial obstruction of flow Tongue Base Retraction Narrow column of contrast/air betwn tongue base & post. pharyngeal wall Pharyngeal Residue Collection of residue within/ on pharyngeal structures Location Diffuse (>3 areas) Additional Pharyngeal Impairment Pt's UES continues to be Observations limited in duration and extension of opening. During trials of liquid, reduced pharyngeal pressures contribute to reduced UES opening, which results in pharyngeal residue superior to the UES which increases pt's risk of aspiration. Flash penetration was observed with consecutive swallows of thin liquids. Reflexive cough was triggered and noted to clear upper airway. No tracheal aspiration of liquids was observed. Regular solids did not appear to be aspirated. Increased pharyngeal pressure from heavier bolus appeared to increase UES opening and decrease pharyngeal residue. [ End ] A/P View The IDDSI Framework Protocol: IDDSI.1 A/P View Observations Additional A-P Observations AP view was not obtained Clinical Impressions Dysphagia Type Oral,Pharyngeal Findings Overall improved swallow safety. Mild oropharyngeal dysphagia was observed. Pt is able to safely tolerate thin liquids when taken with single sips. Larger swallows of thin liquids pose aspiration risk as noted with laryngeal penetration. Pt did not appear to have difficulty with semi solid or solid trials. However , residue within the pharynx required more than one swallow to clear indicative of pharyngeal weakness. Swallowing exercises and base of tongue strengthening is recommended along with safe swallow strategies. Pt is currently receiving ST services through [facility]. Will notify ST of current findings. Rehabilitation Potential Good Patient Appropriate for Therapy Yes: Continue with current ST services Recommendations Diet Liquids Order Thin (IDDSI 0) Diet Order Regular (IDDSI 7) Medication Recommendation As Tolerated Additional Dietary Needs Controlled Sips Aspiration Precautions Recommended Precautions Upright at 90 Degrees, Alternate Liquids/Solids,Small Bites/Sips Treatment Plan Therapy Recommendations Outpatient Speech Therapy,Base of Tongue Exercises Recommended Referrals Primary Care Physician Therapy Strategy Recommendations Sitting Upright (90 deg), Liquids from Cup,Small Bites and Sips,Alternate Liquids/ Solids Placement Recommendation After Discharge Home
--- NOTE | 2023-06-01 14:00 | OT.IP.TRT ---
Current Diagnoses Other specified sepsis (05/28/23) Occupational Therapy Treatment Note M2 OT-IP Current Condition Start: 05/29/23 16:21 Freq: Status: Active Protocol: Document 05/29/23 16:22 [facility] (Rec: 05/29/23 16:36 [facility] [id number]) Occupational Therapy Current Condition Current Condition Evaluation Date 05/29/23 Treatment Diagnosis COVID+, altered mental status, decreased mobility Diagnosis Onset Date 05/28/23 M3 OT- IP Subjective and Pain Start: 05/29/23 16:21 Freq: Status: Active Protocol: Document 06/01/23 15:06 [facility] (Rec: 06/01/23 15:12 [facility] [id number]) OT- Subjective Occupational Therapy Visit Type Type Progress Note Visit Start Time 13:47 Visit Stop Time 14:00 Notes Pt is planning to go home today. OT Pain Assessment Pain Present Pain Present Denied Pain M4 OT- IP ADL's Start: 05/29/23 16:21 Freq: Status: Active Protocol: Document 06/01/23 15:06 [facility] (Rec: 06/01/23 15:12 [facility] [id number]) OT [id number] Comments OT Self-Feeding Comments not meal time OT ADL-Grooming General Evaluation Grooming Ability Independent Areas Needing Assistance Face Washing Comments OT Grooming Comments standing at sink OT ADL-Oral Care General Eval Oral Care Ability Standby Assistance Areas of Assistance Brushing Teeth Comments Oral Care Comments standing at sink OT ADL-Dressing General Eval Lower Body Dressing Ability Independent Areas Needing Assistance Socks Comments OT Dressing Comments seated in chair, pt states his son is bringing him clothing to wear home but he didn't have anything to change into during OT session. OT ADL-Toileting General Evaluation Toileting Ability Independent Comments OT Toileting Comments seated on toielt OT ADL-Bathing Comments OT Bathing Comments not performed, performed earlier with nursing M5 OT- IP IADL's Start: 05/29/23 16:21 Freq: Status: Active Protocol: Document 05/29/23 16:22 [facility] (Rec: 05/29/23 16:36 [facility] [id number]) OT-Instrumental Activities of Daily Living Deficits IADL Deficits Identified Deficits Home Safety Awareness Awareness of Need for Assistance at Home Decreased Awareness Ability to Problem Solve Emergency Unable to Problem Solve Situations Home Safety Comments Pt a bit confused at this time . Medication Management Medication Management Comments Pt will require assist at this time. Money Management Money Management Comments Pt will require assist. Meal Preparation Meal Preparation Comments Pt will require assist. Cell Attendant Helper Cell Attendant Helper Comments Pt will require assist. M6 OT- IP Functional Cognition Start: 05/29/23 16:21 Freq: Status: Active Protocol: Document 05/29/23 16:22 [facility] (Rec: 05/29/23 16:36 [facility] [id number]) Cognitive Factors Limiting Selfcare Function Cognitive Ability Level of Alertness Alert,Confusional State Patient Orientation Name Attention Span Ability Capable of Focused Attention, Unable to Sustain Attention Ability to Follow Commands Able to Follow One Step Commands with Increased Time, Able to Follow One Step Commands with Repetition Cognitive Comments Cognitive Assessment Comments Pt needing step by step commands to follow for routine ADl at this time. Pt not able to read the clock properly at this time. OT- Vision and Hearing OT- Vision Assessment Visual Acuity Glasses All The Time Vision Assessment Comments Pt able to see the clock but unable to states the proper time at this time. M7 OT- IP Mobility and Balance Start: 05/29/23 16:21 Freq: Status: Active Protocol: Document 06/01/23 15:06 [facility] (Rec: 06/01/23 15:12 [facility] [id number]) OT-Transfer Assessment Sit to and From Stand Sit to and from Stand Contact Guard Assistance Transfers Transfer Ability Contact Guard Assistance Technique Transfer Destination Chair,Toilet Transfer Technique Stand Step Pivot Devices Transfer Assistive Devices Gait Belt Comments Mobility Comments Pt ambulated around the room without physical assist. OT- Balance Assessment Sitting Balance and Reactions Static Sitting Balance Ability Good Dynamic Sitting Balance Ability Good M8 OT- IP Objective Assessments Start: 05/29/23 16:21 Freq: Status: Active Protocol: Document 05/29/23 16:22 [facility] (Rec: 05/29/23 16:36 [facility] [id number]) OT Gross Range of Motion Upper Extremity Range of Motion ROM Impairments Grossly WFL OT Strength Upper Extremity Strength Assessment Within Functional Limits OT- Coordination Assessment Comments Coordination Comments Pt has tremors in his hands. M9 OT- IP Assessment and Plan Start: 05/29/23 16:21 Freq: Status: Active Protocol: Document 06/01/23 15:06 [facility] (Rec: 06/01/23 15:12 [facility] [id number]) OT Summary Assessment and Plan Potential Rehabilitation Potential Good Analytic Complexity at Evaluation Moderate Summary OT Impairments Strength,Balance,Coordination, Functional Cognition, Functional Mobility,Self- Feeding,Grooming,Dressing, Toileting,Bathing,Toilet Transfers,Shower Transfers, Activity Tolerance Progress Towards Goals Slow Progress due to Medical Issues,Slow Progress due to Activity Tolerance,Slow Progress due to Cognition Assessment Summary Pt progressed significantly since last seen by OT. Pt is now CGA without AD moving around the room. Pt is planned for discharge home which is appropriate given his mobility at this time. Goals Self-Feeding Goal Independent Grooming Goal Independent Dressing Goal Standby Assistance Toileting Goal Standby Assistance Bathing Goal Independent,Minimal Assistance Toilet Transfer Goal Standby Assistance Shower Transfer Goal Contact Guard Assistance Days to Meet Goals 20 Frequency of Treatment Frequency Of Treatment Once a Day Treatment Plan OT Treatment Plan ADL Training,Functional Cognition Training,Functional Mobility,Patient/Family Education,Discharge Planning Discharge Recommendations OT Discharge Recommendations Home with Assistance Transportation Needs at Discharge Private Vehicle
--- NOTE | 2023-06-04 10:51 | CM.DPNOTE ---
Late entry: Mee from [facility] called because [facility] sent them the patient's referral saying they do not accept this patient's insurance. Mee said [facility] could accept this referral. I relayed this information to Gail Peace-Laws. Sandra Heredia, FRANCY Topography Technician.
== END 2023-06-01 14:30 | disposition home health service (06) | DRG 871 ==
LOC: ED 18:01 → AC 18:04
PROVIDERS: Admitting Provider Student in an Organized Health Care Education/Training Program; Emergency Provider Emergency Medicine; Family Provider Student in an Organized Health Care Education/Training Program; PCP Student in an Organized Health Care Education/Training Program; Referring Provider Emergency Medicine; Visit Provider Student in an Organized Health Care Education/Training Program
DX: A41.9 Sepsis, unspecified organism (principal); G93.41 Metabolic encephalopathy; U07.1 COVID-19; J96.01 Acute respiratory failure with hypoxia; J69.0 Pneumonitis due to inhalation of food and vomit; N17.9 Acute kidney failure, unspecified; N18.30 Chronic kidney disease, stage 3 unspecified; G20.A1 Parkinson's disease without dyskinesia, without mention of fluctuations; K21.9 Gastro-esophageal reflux disease without esophagitis; E78.5 Hyperlipidemia, unspecified; R65.20 Severe sepsis without septic shock
CPT/HCPCS: 0241U; 36415; 70450; 71045; 72125; 74230; 80048; 80053; 80320; 81001; 83605; 83690; 83735; 84145; 85025; 85610; 85730; 87040; 87077; 87086; 87147; 87154; 92526; 92610; 92611; 93005; 94762; 96365; 97116; 97162; 97166; 97530; 97535; 99284; J0136; J0696; J1100; J1644

== ENCOUNTER → 2023-06-10 11:17 | Outpatient (CLI) | payer OTHER, SELFPAY ==
[2023-05-28 19:50] VITALS: BMI 25.3
--- NOTE | 2023-06-10 | DI.RAD.S_ITS ---
PROCEDURE: XR CHEST 2V INDICATIONS: ACUTE COUGH TECHNIQUE: 2 views of the chest were acquired. COMPARISON: [facility], CR, XR CHEST 1V, 05/29/2023, 10:22. [facility], CR, XR CHEST 1V, 05/28/2023, 16:43. FINDINGS: Surgical changes and devices: None. Lungs and pleura: Lungs are clear. No pleural effusions or pneumothorax. Mediastinum: Mediastinal contours are normal. Heart size is normal. Bones and chest wall: No suspicious bony abnormalities. Soft tissues appear unremarkable. IMPRESSION: No acute cardiopulmonary abnormality is seen. Dictated by: Aba Schroeder M.D. on 06/10/2023 at 12:00 Approved by: Aba Schroeder M.D. on 06/10/2023 at 12:00
== END ==
PROVIDERS: Family Provider Student in an Organized Health Care Education/Training Program; PCP Student in an Organized Health Care Education/Training Program; Referring Provider Student in an Organized Health Care Education/Training Program; Visit Provider Student in an Organized Health Care Education/Training Program
DX: R05.1 Acute cough (principal)
CPT/HCPCS: 71046

== ENCOUNTER → 2023-07-29 14:21 | Outpatient (CLI) | payer MEDICARE, SELFPAY ==
[2023-05-28 19:50] VITALS: BMI 25.3
[2023-07-29 15:40] LABS: Hematocrit 38.8 % (41-53); Hemoglobin 13.1 g/dL (13.5-17.5)
[2023-07-29 15:58] LABS: Blood Urea Nitrogen 18 mg/dL (9-20); Carbon Dioxide 26 mmol/L (22-32); Chloride 105 mmol/L (98-107); Estimated Glomerular Filt Rate 42 mL/min (>60); Glucose 125 mg/dL (80-110); HEMOLYSIS < 15 (0-50); Potassium 4.2 mmol/L (3.4-5.1); Sodium 137 mmol/L (137-145)
[2023-07-29 16:48] LABS: Creatinine Urine Random 76.3 mg/dL; Protein (Total) Urine Random 14 mg/dL (0-12); Protein Creatinine Ratio Urine 0.18 GRAM/24H
[2023-07-31 11:36] LABS: Parathyroid Hormone Int 49 pg/mL (15-65)
== END ==
PROVIDERS: Family Provider Student in an Organized Health Care Education/Training Program; PCP Student in an Organized Health Care Education/Training Program; Referring Provider Student in an Organized Health Care Education/Training Program; Visit Provider Student in an Organized Health Care Education/Training Program
DX: N05.9 Unspecified nephritic syndrome with unspecified morphologic changes (principal); D70.9 Neutropenia, unspecified; D63.1 Anemia in chronic kidney disease; N25.81 Secondary hyperparathyroidism of renal origin; R80.9 Proteinuria, unspecified
CPT/HCPCS: 36415; 80048; 82570; 83970; 84156; 85014; 85018

== ENCOUNTER → 2023-12-24 14:17 | Outpatient (CLI) | payer MEDICARE, SELFPAY ==
[2023-05-28 19:50] VITALS: BMI 25.3
[2023-12-24 14:37] LABS: Hematocrit 40.6 % (41-53); Hemoglobin 13.8 g/dL (13.5-17.5)
[2023-12-24 15:02] LABS: BUN Creatinine Ratio 10.1 (6-22); Blood Urea Nitrogen 16 mg/dL (9-20); Calcium 8.8 mg/dL (8.4-10.2); Carbon Dioxide 23 mmol/L (22-32); Chloride 105 mmol/L (98-107); Estimated Glomerular Filt Rate 43 mL/min (>60); Glucose 124 mg/dL (80-110); HEMOLYSIS < 15 (0-50); Potassium 4.4 mmol/L (3.4-5.1); Sodium 136 mmol/L (137-145)
[2023-12-24 15:11] LABS: Protein (Total) Urine Random 15 mg/dL (0-12); Protein Creatinine Ratio Urine 0.17 GRAM/24H
[2024-01-03 16:57] LABS: Parathyroid Hormone Int 63
== END ==
PROVIDERS: Family Provider Student in an Organized Health Care Education/Training Program; PCP Student in an Organized Health Care Education/Training Program; Referring Provider Student in an Organized Health Care Education/Training Program; Visit Provider Student in an Organized Health Care Education/Training Program
DX: N05.9 Unspecified nephritic syndrome with unspecified morphologic changes (principal); D70.9 Neutropenia, unspecified; D63.1 Anemia in chronic kidney disease; N25.81 Secondary hyperparathyroidism of renal origin; R80.9 Proteinuria, unspecified
CPT/HCPCS: 36415; 80048; 82570; 83970; 84156; 85014; 85018

== ENCOUNTER → 2024-08-18 14:06 | Outpatient (CLI) | payer MEDICARE, SELFPAY ==
[2023-05-28 19:50] VITALS: BMI 25.3
[2024-08-18 15:25] LABS: Hematocrit 39.7 % (41-53); Hemoglobin 13.8 g/dL (13.5-17.5)
[2024-08-18 15:44] LABS: BUN Creatinine Ratio 11.6 (6-22); Blood Urea Nitrogen 21 mg/dL (9-20); Calcium 9.5 mg/dL (8.4-10.2); Carbon Dioxide 26 mmol/L (22-32); Chloride 102 mmol/L (98-107); Estimated Glomerular Filt Rate 37 mL/min (>60); Glucose 121 mg/dL (70-99); HEMOLYSIS < 15 (0-50); Potassium 4.7 mmol/L (3.4-5.1); Sodium 136 mmol/L (137-145)
[2024-08-18 16:34] LABS: Creatinine Urine Random 86.88 mg/dL
[2024-08-18 16:38] LABS: Microalbumin Urine Random 1.4 mg/dL (0-1.6)
[2024-08-20 09:09] LABS: Parathyroid Hormone Int 45 pg/mL (15-65)
== END ==
LOC: LAB 14:11
PROVIDERS: Family Provider Student in an Organized Health Care Education/Training Program; PCP Student in an Organized Health Care Education/Training Program; Referring Provider Student in an Organized Health Care Education/Training Program; Visit Provider Student in an Organized Health Care Education/Training Program
DX: N05.9 Unspecified nephritic syndrome with unspecified morphologic changes (principal); D70.9 Neutropenia, unspecified; D63.1 Anemia in chronic kidney disease; N25.81 Secondary hyperparathyroidism of renal origin; R80.9 Proteinuria, unspecified
CPT/HCPCS: 36415; 80048; 82043; 82570; 83970; 85014; 85018

== ENCOUNTER → 2024-09-20 10:36 | Outpatient (CLI) | payer MEDICARE, SELFPAY ==
[2023-05-28 19:50] VITALS: BMI 25.3
[2024-09-20 11:31] LABS: BUN Creatinine Ratio 11.3 (6-22); Blood Urea Nitrogen 19 mg/dL (9-20); Calcium 9.4 mg/dL (8.4-10.2); Carbon Dioxide 25 mmol/L (22-32); Chloride 105 mmol/L (98-107); Estimated Glomerular Filt Rate 41 mL/min (>60); Glucose 90 mg/dL (70-99); HEMOLYSIS < 15 (0-50); Sodium 138 mmol/L (137-145)
[2024-09-20 11:44] LABS: Creatinine Urine Random 40.22 mg/dL; Protein (Total) Urine Random 14 mg/dL (0-12); Protein Creatinine Ratio Urine 0.34 GRAM/24H
== END ==
PROVIDERS: Family Provider Student in an Organized Health Care Education/Training Program; PCP Student in an Organized Health Care Education/Training Program; Referring Provider Student in an Organized Health Care Education/Training Program; Visit Provider Student in an Organized Health Care Education/Training Program
DX: N05.9 Unspecified nephritic syndrome with unspecified morphologic changes (principal); R80.9 Proteinuria, unspecified
CPT/HCPCS: 36415; 80048; 82570; 84156

== ENCOUNTER 2024-11-25 11:43 | Emergency (ER) | payer MEDICARE, SELFPAY ==
[2023-05-28 19:50] VITALS: BMI 25.3
[2024-11-25] VITALS (14 sets, daily range): BP systolic 134–159; BP diastolic 65–79; PULSE 50–67; RESP 13–25; TEMP 36.4; O2SAT 96–100; BMI 25.7
--- NOTE | 2024-11-25 11:52 | EKG_ITS ---
[address] [address] Test Date: 2024-11-25 Pat Name: Bro Tubbs Department: Room: Gender: Male Mba Intern: JAELYN : 1940 Requested By: Order Number: [id number] Reading MD: Roberto Haywood Measurements Intervals [place]itt Rate: 66 P: 52 CO: QRS: -16 QRSD: 82 T: 34 QT: 390 QTc: 408 Interpretive Statements Undetermined rhythm Electronically Signed On 12-02-2024 14:00:45 PDT by Roberto Haywood
--- NOTE | 2024-11-25 11:53 | DI.RAD.S_ITS ---
PROCEDURE: XR CHEST 1V INDICATIONS: Chest Pain TECHNIQUE: One view of the chest was acquired. COMPARISON: [facility], CR, XR CHEST 1V, 05/29/2023, 10:22. [facility], CR, XR CHEST 1V, 05/28/2023, 16:43. [facility], CR, XR CHEST 2V, 06/10/2023, 11:49. FINDINGS: Surgical changes and devices: None. Lungs and pleura: Lungs are clear. No pleural effusions or pneumothorax. Mediastinum: Mediastinal contours appear normal. Heart size is normal. Atherosclerotic calcification of the aortic arch is noted. Bones and chest wall: No suspicious bony lesions. Age-appropriate bony degenerative changes are seen. Overlying soft tissues appear unremarkable. IMPRESSION: Portable chest within normal limits for age. Similar to the prior. Dictated by: Arnaldo Ellison M.D. on 11/25/2024 at 11:15 Approved by: Arnaldo Ellison M.D. on 11/25/2024 at 11:15
[2024-11-25] MEDS: ASPIRIN 81 MG CHEW TAB 324 MG PO (12:10)
[2024-11-25 12:15] LABS: Add Manual Diff / Slide Review NO; Hematocrit 42.1 % (41-53); Hemoglobin 14.5 g/dL (13.5-17.5); Lymphocytes Absolute Auto 1200 /uL (1100-4500); Mean Corpuscular HGB Conc 34.5 % (30-36); Mean Corpuscular Hemoglobin 33.7 PG (26-34); Mean Corpuscular Volume 97.7 fL (80-100); Platelet Count 187 X10^3/uL (150-400)
--- NOTE | 2024-11-25 12:19 | ED.CHESTPAIN ---
HPI - Chest Pain General Chief Complaint: Chest Pain Stated Complaint: chest pain x 1 week Time Seen by Provider: 11/25/24 12:18 Source: patient Mode of arrival: Ambulatory Limitations: no limitations History of Present Illness HPI narrative: 84 years old male with history of dyslipidemia came in today complaining of left-sided chest pain intermittently as sharp pain for the last 1 week without shortness of breath, nausea vomiting, dizziness, loss of consciousness, sweating, headache, neck pain, jaw pain, leg pain, leg swelling, abdominal pain, injury, heavy lifting, heavy exercise. The pain got worse with taking deep breath. He denied any History of heart attack, heart stent, heart bypass surgery, lung problem. Related Data Home Medications ?Medication ?Instructions ?Recorded ?Confirmed ascorbate calcium (vitamin C) 500 500 mg PO DAILY 10/06/19 05/28/23 mg tablet aspirin 81 mg tablet,delayed 81 mg PO DAILY 03/14/20 06/01/23 release (Adult Aspirin Regimen) multivitamin 1 tab PO DAILY 03/14/20 06/01/23 atorvastatin 20 mg tablet 10 mg PO DAILY 05/28/23 06/01/23 mirtazapine 7.5 mg tablet 7.5 mg PO ONCE PM 05/28/23 05/28/23 rivastigmine tartrate 3 mg capsule 3 mg PO BID 05/28/23 06/01/23 acetaminophen 650 mg tablet 650 mg PO Q6H PRN Pain (Scale 06/01/23 06/01/23 Score 1-3) cholecalciferol (vitamin D3) 125 125 mcg PO DAILY 06/01/23 06/01/23 mcg (5,000 unit) tablet (Vitamin D3) coQ10 (ubiquinol) 200 mg capsule 200 mg PO DAILY 06/01/23 06/01/23 cyanocobalamin (vitamin B-12) 1,000 mcg PO DAILY 06/01/23 06/01/23 1,000 mcg tablet fish, borage, flaxseed oils-omega 1 cap PO DAILY 06/01/23 06/01/23 3,6,9 comb no.1 1,200 mg capsule ([place] 3-6-9) loratadine 10 mg tablet 10 mg PO DAILY PRN Allergy Symptoms 06/01/23 06/01/23 magnesium 200 mg tablet 400 mg PO DAILY 06/01/23 06/01/23 omeprazole 20 mg tablet,delayed 20 mg PO DAILY 06/01/23 06/01/23 release vitamin E 268 mg (400 unit) capsule 268 mg PO DAILY 06/01/23 06/01/23 vitamins A,C,B-oiyr-chvuef 4,296 1 cap PO BID 06/01/23 06/01/23 mcg-226 mg-90 mg capsule (PreserVision AREDS) Previous Rx's ?Medication ?Instructions ?Recorded benzonatate 200 mg capsule 200 mg PO TID PRN cough #30 caps 09/23/21 cyclobenzaprine 5 mg tablet 5 mg PO TID PRN muscle spasm #15 11/25/24 tabs Allergies Allergy/AdvReac Type Severity Reaction Status Date / Time Penicillins (PENICILLINS) Allergy Unknown Verified 11/25/24 11:53 Review of Systems Review of Systems Narrative: Positive for left-sided chest pain intermittently as sharp pain worsening with taking deep breath. Negative for shortness of breath, nausea vomiting, dizziness, loss of consciousness, sweating, headache, neck pain, jaw pain, leg pain, leg swelling, abdominal pain, injury, heavy lifting, heavy exercise. Patient History Medical History Nephrolithiasis BPH loc w/o ur obs/LUTS Male circumcision Renal disease Kidney stones Skin cancer Surgical History Vasectomy status Previous back surgery Hx of appendectomy Family History Father Diabetes mellitus Social History marital status: household members: spouse Smoking Status: Unknown if ever smoked alcohol intake: current caffeine: Yes Smoking Status: Unknown if ever smoked alcohol intake frequency: holidays/special occasions only Exam Narrative Exam Narrative: GENERAL: Cooperative, well developed. No acute distress. HEAD: Atraumatic. Normocephalic. NECK: Trachea midline. Non tender CARDIOVASCULAR: Regular rate and rhythm without murmurs, gallops, or rubs. Mild tenderness on palpation left lower rib. RESPIRATORY: Clear to auscultation. Breath sounds equal bilaterally. No wheezes, rales, or rhonchi. GASTROINTESTINAL: Abdomen soft, non-tender, nondistended. EXTREMITIES: No edema or joint tenderness. BACK: Nontender without deformity or crepitance. No flank tenderness. NEURO: AOx3. SKIN: No rash or erythema of visible areas Initial Vital Signs Initial Vital Signs: Vital Signs Temperature 97.6 F 11/25/24 11:45 Pulse Rate 67 11/25/24 11:45 Respiratory Rate 13 11/25/24 11:45 Blood Pressure 134/76 11/25/24 11:45 Pulse Oximetry 100 11/25/24 11:45 Oxygen Delivery Method Room Air 11/25/24 11:45 Course Orders Ordered: Discontinued Medications Aspirin (Aspirin 81 Mg Chew Tab) 324 mg PO NOW ONE Stop: 11/25/24 11:54 Last Admin: 11/25/24 12:10 Dose: 324 mg Documented By: SHANNON Vital Signs Vital signs: Vital Signs - 8 hr 11/25/24 11:45 11/25/24 11:49 11/25/24 11:50 Temperature 97.6 F Pulse Rate 67 Respiratory Rate 13 Blood Pressure 134/76 134/76 Pulse Oximetry 100 97 Oxygen Delivery Method Room Air 11/25/24 11:50 11/25/24 12:00 11/25/24 12:00 Temperature Pulse Rate 65 56 L Respiratory Rate 19 Blood Pressure 154/72 H Pulse Oximetry 99 99 Oxygen Delivery Method 11/25/24 12:29 11/25/24 12:30 11/25/24 12:30 Temperature Pulse Rate 57 L 54 L Respiratory Rate 16 16 Blood Pressure 144/68 H Pulse Oximetry 98 98 Oxygen Delivery Method 11/25/24 13:00 11/25/24 13:00 11/25/24 13:30 Temperature Pulse Rate 51 L 52 L Respiratory Rate 18 24 Blood Pressure 135/74 Pulse Oximetry 96 Oxygen Delivery Method 11/25/24 14:00 11/25/24 14:00 11/25/24 14:30 Temperature Pulse Rate 51 L 54 L Respiratory Rate 17 17 Blood Pressure 136/65 Pulse Oximetry 100 Oxygen Delivery Method 11/25/24 14:55 11/25/24 14:55 11/25/24 14:57 Temperature Pulse Rate 52 L Respiratory Rate 25 H Blood Pressure 138/75 153/71 H Pulse Oximetry 98 Oxygen Delivery Method 11/25/24 14:57 11/25/24 15:00 11/25/24 15:00 Temperature Pulse Rate 51 L 52 L Respiratory Rate 22 25 H Blood Pressure 159/79 H Pulse Oximetry 99 100 Oxygen Delivery Method 11/25/24 15:30 11/25/24 15:30 Temperature Pulse Rate 50 L Respiratory Rate 16 Blood Pressure 144/74 H Pulse Oximetry 98 Oxygen Delivery Method MDM - Chest Pain Lab Data 11/25/24 12:00 11/25/24 12:00 Labs: Lab Results 11/25/24 11/25/24 11/25/24 Range/Units 11:52 12:00 14:26 WBC 7.6 (4.5-11.0) X10^3/uL RBC 4.31 L (4.5-5.9) X10^6/uL Hgb 14.5 (13.5-17.5) g/dL Hct 42.1 (41-53) % MCV 97.7 (80-100) fL MCH 33.7 (26-34) PG MCHC 34.5 (30-36) % RDW 13.0 (11.6-14.8) % Plt Count 187 (150-400) X10^3/uL Neut % (Auto) 74.5 (50-75) % Lymph % (Auto) 16.1 L (25-40) % [place] % (Auto) 7.8 (3-14) % Eos % (Auto) 1.0 L (2-4) % Baso % (Auto) 0.6 (0-2) % Neut # (Auto) 5600 (2916-1007) /uL Lymph # (Auto) 1200 (6626-8525) /uL [place] # (Auto) 600 (0-900) /uL Eos # (Auto) 100 (0-450) /uL Baso # (Auto) 0 (0-100) /uL PT 12.1 (9.4-12.5) SECONDS INR 1.1 (0.9-1.3) APTT 30 (25.1-36.5) SECONDS D-Dimer 535 H (<500) ng/ml Sodium 139 (137-145) mmol/L Potassium 4.7 (3.4-5.1) mmol/L Chloride 106 (98-107) mmol/L Carbon Dioxide 27 (22-32) mmol/L BUN 17 (9-20) mg/dL Creatinine 1.63 H (0.66-1.25) mg/dL Estimated GFR 42 L (>60) mL/min BUN/Creatinine Ratio 10.4 (6-22) Glucose 93 (70-99) mg/dL POC Whole Bld Glucose 102 H (70-99) mg/dL Calcium 9.4 (8.4-10.2) mg/dL Magnesium 2.0 (1.6-2.3) mg/dL Total Bilirubin 0.8 (0.2-1.3) mg/dL AST 38 (17-59) IU/L ALT 25 (<50) IU/L Alkaline Phosphatase 65 (38-126) U/L Total Creatine Kinase 96 (55-170) U/L Troponin I < 0.012 < 0.012 (0.01-0.034) ng/mL NT-Pro-B Natriuret Pep 223 (<450) pg/mL Total Protein 7.5 (6.3-8.2) g/dL Albumin 4.3 (3.5-5.0) g/dL Globulin 3.2 (1.7-4.1) g/dL Albumin/Globulin Ratio 1.3 (1.0-2.8) Lipase 111 (23-300) U/L Imaging Data Chest x-ray: Radiologist's Impression: PROCEDURE: XR CHEST 1V INDICATIONS: Chest Pain TECHNIQUE: One view of the chest was acquired. COMPARISON: [facility], CR, XR CHEST 1V, 05/29/2023, 10:22. [facility], CR, XR CHEST 1V, 05/28/2023, 16:43. [facility], CR, XR CHEST 2V, 06/10/2023, 11:49. FINDINGS: Surgical changes and devices: None. Lungs and pleura: Lungs are clear. No pleural effusions or pneumothorax. Mediastinum: Mediastinal contours appear normal. Heart size is normal. Atherosclerotic calcification of the aortic arch is noted. Bones and chest wall: No suspicious bony lesions. Age-appropriate bony degenerative changes are seen. Overlying soft tissues appear unremarkable. IMPRESSION: Portable chest within normal limits for age. Similar to the prior. Dictated by: Arnaldo Ellison M.D. on 11/25/2024 at 11:15 Approved by: Arnaldo Ellison M.D. on 11/25/2024 at 11:15 ECG Data Interpretation: EKG showed normal sinus rhythm at rate 66 beats per minute with first-degree AV block with PAC without ischemic ST-T changes. MDM Narrative Medical decision making narrative: 84 years old male with history of dyslipidemia came today complaining of intermittent sharp chest pain on the left chest worsening with taking deep breath for the last 1 week without any injury, shortness of breath, palpitation, nausea vomiting, dizziness, loss of consciousness. His CV exam, lung exam, abdominal exam were benign. Mild tenderness to palpation left lower rib. Patient x-ray showed no acute finding. His 2 set troponin were negative. The D-dimer was negative for age adjustment. His CBC showed no leukocytosis and hemoglobin was 14.5. His PT INR PTT were normal. His creatinine was the same at his baseline today creatinine is 1.63 otherwise normal CMP. He threw set troponin were normal. His proBNP was normal. His lipase was normal. He was sent home with Flexeril and to take Tylenol alternating ibuprofen as needed. Asked him to follow up with his PCP. Return to the ED precaution was given. Discharge Plan Departure Patient Disposition: Home Clinical Impression: Atypical chest pain Instructions: DI for Atypical Chest Pain Activity Restrictions/Additional Instructions: Please set up primary care doctor for follow up in the next 1-2 weeks. Please come back to the emergency room if any worsening symptoms including but not limited to shortness of breath, dizziness, lightheadedness, nausea vomiting, worsening chest pain, change on her chest pain, fever. Prescriptions: New cyclobenzaprine 5 mg tablet 5 mg PO TID PRN (Reason: muscle spasm) Qty: 15 0RF No Action ascorbate calcium (vitamin C) 500 mg tablet 500 mg PO DAILY benzonatate 200 mg capsule 200 mg PO TID PRN (Reason: cough) Qty: 30 0RF atorvastatin 20 mg tablet 10 mg PO DAILY rivastigmine tartrate 3 mg capsule 3 mg PO BID mirtazapine 7.5 mg tablet 7.5 mg PO ONCE PM cyanocobalamin (vitamin B-12) 1,000 mcg Tablet 1,000 mcg PO DAILY acetaminophen 650 mg Tablet 650 mg PO Q6H PRN (Reason: Pain (Scale Score 1-3)) vitamin E 268 mg (400 unit) Capsule 268 mg PO DAILY loratadine 10 mg Tablet 10 mg PO DAILY PRN (Reason: Allergy Symptoms) omeprazole 20 mg Tablet,Delayed Release (Dr/Ec) 20 mg PO DAILY cholecalciferol (vitamin D3) [Vitamin D3] 125 mcg (5,000 unit) Tablet 125 mcg PO DAILY magnesium 200 mg Tablet 400 mg PO DAILY PreserVision AREDS 4,296 mcg-226 mg-90 mg Capsule 1 cap PO BID coQ10 (ubiquinol) 200 mg Capsule 200 mg PO DAILY Frederick 3-6-9 1,200 mg Capsule 1 cap PO DAILY aspirin [Adult Aspirin Regimen] 81 mg tablet,delayed release (DR/EC) 81 mg PO DAILY multivitamin Tablet 1 tab PO DAILY Referrals: Yesenia Christine, PAAngC [Primary Care Provider, Medical] Stand Alone Forms: Patient Portal/API
[2024-11-25 12:20] LABS: INR 1.1 (0.9-1.3); Prothrombin Time 12.1 SECONDS (9.4-12.5)
[2024-11-25 12:23] LABS: PTT Partial Thromboplastin Tim 30 SECONDS (25.1-36.5)
[2024-11-25 12:25] LABS: Alanine Aminotransferase 25 IU/L (<50); Albumin 4.3 g/dL (3.5-5.0); Albumin Globulin Ratio 1.3 (1.0-2.8); Alkaline Phosphatase 65 U/L (38-126); Blood Urea Nitrogen 17 mg/dL (9-20); Calcium 9.4 mg/dL (8.4-10.2); Carbon Dioxide 27 mmol/L (22-32); Chloride 106 mmol/L (98-107); Creatine Kinase 96 U/L (55-170); Estimated Glomerular Filt Rate 42 mL/min (>60); Globulin 3.2 g/dL (1.7-4.1); Glucose 93 mg/dL (70-99); HEMOLYSIS < 15 (0-50); Lipase 111 U/L (23-300); Magnesium 2.0 mg/dL (1.6-2.3); Potassium 4.7 mmol/L (3.4-5.1); Sodium 139 mmol/L (137-145); Total Protein 7.5 g/dL (6.3-8.2)
[2024-11-25 12:36] LABS: NT-proBNP (BNP-Adult 18+) 223 pg/mL (<450); Troponin I < 0.012 ng/mL (0.01-0.034)
--- NOTE | 2024-11-25 12:43 | PC.NURSE ---
Pt reports L-side CP when he takes a deep breath, feels sharp and stabbing. Able to reproduce that pain on command. States no CP when he plays ping-pong.
[2024-11-25 15:01] LABS: Troponin I < 0.012 ng/mL (0.01-0.034)
== END 2024-11-25 16:12 | disposition home or self-care (01) ==
PROVIDERS: Emergency Provider Emergency Medicine; Family Provider Student in an Organized Health Care Education/Training Program; PCP Student in an Organized Health Care Education/Training Program
DX: R07.89 Other chest pain (principal)
CPT/HCPCS: 36415; 71045; 80053; 82550; 82962; 83690; 83735; 83880; 84484; 85025; 85379; 85610; 85730; 93005; 99284

== ENCOUNTER → 2025-03-17 10:36 | Outpatient (CLI) | payer MEDICARE, SELFPAY ==
[2023-05-28 19:50] VITALS: BMI 25.3
--- NOTE | 2025-03-17 10:37 | DI.CT.S_ITS ---
PROCEDURE: CT KIDNEY URETER BLADDER (KUB) INDICATIONS: LT Chest wall pain/LT flank pain TECHNIQUE: CT of the abdomen and pelvis was obtained without intravenous contrast. Coronal and sagittal reformats were performed. For radiation dose reduction, the following was used: automated exposure control, adjustment of mA and/or kV according to patient size. COMPARISON: Not available FINDINGS: Image quality: Diagnostic Lower chest: Separately reported lung bases. Normal heart size. Liver: Left lobe liver cyst. No contour deforming mass. Solid organs are not well assessed without IV contrast Gallbladder and biliary system: Cholelithiasis nondilated Pancreas: No ductal dilation Spleen: Nonenlarged Adrenals: No discrete nodules Kidneys: No hydronephrosis. A small 2-3 mm calcification is seen in the left upper region, either a small nonobstructing stone or a distal vascular calcification. Vessels and lymph nodes: Mild aortoiliac atherosclerotic calcifications. No enlarged lymph nodes by size criteria. No abdominal aortic aneurysm. Bowel and peritoneum: No bowel obstruction. Mild central mesenteric fat stranding, nonspecific. Moderate colonic fecal loading. No ascites or abscess. Body wall: Unremarkable Pelvis: No calcified bladder stone. Prostate bed is unremarkable on CT evaluation Bones: Sacroiliac ankylosis. Lumbosacral degenerative changes. IMPRESSION: 2-3 mm left upper pole calcification, either a small nonobstructing stone versus distal vascular calcification. No hydronephrosis. Other findings above on this noncontrast CT. Dictated by: Nayan Leal M.D. on 03/18/2025 at 7:36 Approved by: Nayan Leal M.D. on 03/18/2025 at 7:42
--- NOTE | 2025-03-17 10:38 | DI.CT.S_ITS ---
PROCEDURE: CT CHEST WO CON INDICATIONS: LT Chest wall pain/LT flank pain TECHNIQUE: Noncontrast 5 mm thick sections acquired from the pulmonary apices to the posterior costophrenic angles. 1 mm lung window, 5 mm thick coronal and sagittal and 7 mm axial MIP reformats were then acquired. For radiation dose reduction, the following was used: automated exposure control, adjustment of mA and/or kV according to patient size. COMPARISON: None. FINDINGS: Image quality: Diagnostic Lungs and pleura: Scattered scarring and atelectasis. No airspace consolidation or pleural effusions. Multiple pleural nodules are present, for example along the right minor fissure measuring 5-6 mm (6/92). Right costophrenic angle nodule measures 7 mm. (6/134) Mediastinum, heart, and esophagus: Mildly patulous esophagus. Heart size is at the upper limit of normal. No lymphadenopathy suspected by size criteria on this noncontrast study. Chest wall and thyroid: Unremarkable Upper abdomen: Separately reported Bones: There are degenerative osseous changes. No aggressive appearing osseous abnormality. No displaced fracture. Questionable small age-indeterminate buckle deformity of the left anterior 4th rib Bridging syndesmophytes and osteophytes throughout the thoracic spine. IMPRESSION: Multiple small pulmonary nodules measuring up to 6-7 mm. Six-month follow-up chest CT is recommended. Questionable small buckle deformity of the left anterior 4th rib, age-indeterminate No displaced fracture. Other findings above. Dictated by: Nayan Leal M.D. on 03/18/2025 at 10:26 Approved by: Nayan Leal M.D. on 03/18/2025 at 10:31
== END ==
LOC: CT 10:36
PROVIDERS: Family Provider Student in an Organized Health Care Education/Training Program; PCP Student in an Organized Health Care Education/Training Program; Referring Provider Family Medicine; Visit Provider Family Medicine
DX: R10.A2 Flank pain, left side (principal); R91.8 Other nonspecific abnormal finding of lung field; K76.89 Other specified diseases of liver; K80.20 Calculus of gallbladder without cholecystitis without obstruction; I25.10 Atherosclerotic heart disease of native coronary artery without angina pectoris; M43.28 Fusion of spine, sacral and sacrococcygeal region
CPT/HCPCS: 71250; 74176

== ENCOUNTER → 2025-03-29 15:30 | Outpatient (CLI) | payer MEDICARE, SELFPAY ==
[2023-05-28 19:50] VITALS: BMI 25.3
[2025-03-29 16:51] LABS: Hemoglobin 14.0 g/dL (13.5-17.5)
[2025-03-29 17:16] LABS: Protein (Total) Urine Random 13 mg/dL (0-12); Protein Creatinine Ratio Urine 0.19 GRAM/24H
[2025-03-29 17:20] LABS: Albumin 4.3 g/dL (3.5-5.0); Blood Urea Nitrogen 19 mg/dL (9-20); Calcium 9.5 mg/dL (8.4-10.2); Carbon Dioxide 26 mmol/L (22-32); Chloride 103 mmol/L (98-107); Estimated Glomerular Filt Rate 39 mL/min (>60); Glucose 96 mg/dL (70-99); HEMOLYSIS < 15 (0-50); Phosphorous 3.7 mg/dL (2.3-3.7); Potassium 5.0 mmol/L (3.4-5.1); Sodium 138 mmol/L (137-145)
== END ==
PROVIDERS: Family Provider Student in an Organized Health Care Education/Training Program; PCP Family Medicine; Referring Provider Student in an Organized Health Care Education/Training Program; Visit Provider Student in an Organized Health Care Education/Training Program
DX: N18.32 Chronic kidney disease, stage 3b (principal)
CPT/HCPCS: 36415; 80069; 82310; 82570; 83970; 84156; 85018